=== PATIENT | female | born 1950 | race Caucasian/White ===

== ENCOUNTER 2022-01-04 10:56 | Outpatient (CLI) | payer MEDICARE, OTHER, SELFPAY ==
[2022-01-04 13:13] LABS: Albumin* 4.1 g/dL (3.3-5.0); Chloride* 101 mmol/L (96-114); Sodium* 137 mmol/L (135-149)
[2022-01-04 13:14] LABS: Potassium* 4.2 mmol/L (3.6-5.1)
[2022-01-04 13:15] LABS: Cholesterol* 238 mg/dL (90-199)
[2022-01-04 13:16] LABS: Alanine Aminotransferase* 28 U/L (4-35); Alkaline Phosphatase* 111 U/L (40-150); Aspartate Amino Transferase* 36 U/L (12-35); Bilirubin Total* 0.5 mg/dL (0.1-1.5); Blood Urea Nitrogen* 23 mg/dL (7-30); Carbon Dioxide* 27 mmol/L (20-32); Creatinine* 0.9 mg/dL (0.5-1.5); Estimated Glomerular Filt Rate 68 ml/min; Glucose* 96 mg/dL (60-115); Total Protein* 7.1 g/dL (6.0-8.3); Triglycerides* 151 mg/dL (40-149)
[2022-01-04 13:17] LABS: Calcium* 9.5 mg/dL (8.4-10.6); HDL Cholesterol* 46 mg/dL (>=50); LDL Cholesterol Calculated 162 mg/dL (<100)
== END 2022-01-04 10:57 | disposition home or self-care (01) ==
PROVIDERS: PCP Internal Medicine; Visit Provider Internal Medicine
DX: Z00.00 Encounter for general adult medical examination without abnormal findings (principal); E66.3 Overweight; E03.9 Hypothyroidism, unspecified; E78.5 Hyperlipidemia, unspecified; I10 Essential (primary) hypertension
CPT/HCPCS: 80053; 80061; 84443

== ENCOUNTER 2022-06-22 08:48 | Outpatient (CLI) | payer MEDICARE, OTHER, SELFPAY ==
--- NOTE | 2022-06-22 09:15 | CRLHL7_ITS ---
For Patients: As a result of the 21st Century Cures Act, medical imaging exams and procedure reports are released immediately into your electronic medical record. You may view this report before your referring provider. If you have questions, please contact your health care provider. HISTORY: Hypodense nodules within the liver. COMPARISON: Outside CT of the abdomen and pelvis, 05/19/2022. TECHNIQUE: MRI of the abdomen without and with intravenous gadolinium. Three plane localizer, 3 plane SSFP, axial T1 weighted in and out of phase, axial coronal T2 weighted haste, axial STIR, axial diffusion-weighted imaging and ADC map, and pre and post contrast axial/coronal T1 weighted fat-suppressed VIBE pulse sequences were obtained. 15 cc of IV dotarem. Findings: Review of the outside CT scan demonstrates a low-density, subcentimeter lesion in segment VII of the liver, which measured 6-7 mm. This is seen on series 3, image 20. This lesion demonstrates T2 shine through rather than restricted diffusion on the diffusion-weighted sequence/ADC map. This may be cystic in nature, but is not seen with certainty on T2 weighted imaging. There is a focal T1 hypointense observation on the portal venous phase, right hepatic lobe, series 15, image 31, which could represent a focal dilated intrahepatic biliary radicles. No suspicious liver lesion is identified. The liver morphology is non cirrhotic. There is no perihepatic ascites. No inflammatory changes adjacent to the gallbladder. Spleen size is normal. No adrenal mass. The nephrograms are symmetric. There is no solid renal mass or perinephric fluid collection. There is no pancreatic duct dilation or glandular atrophy. No inflammatory changes adjacent to the gallbladder. Normal caliber common bile duct. No portal vein thrombosis. SMV and splenic vein are patent. Normal marrow signal intensity. Inflammatory changes present in the left lower quadrant abdominal wall, as seen on series 15, image 75 the common bile duct measures 4-5 millimeters in the head of the pancreas. No pancreatic duct dilation. No glandular atrophy. Impression: 1. The subcentimeter, hypodense liver lesion, segment VII of the liver, has nonspecific imaging characteristics. This is of lower suspicion given the presence of T2 shine through rather than restricted diffusion on the ADC map. 2. This is amenable to imaging surveillance. Follow-up MRI in 6 months is suggested to begin documentation of stability. 3. Non cirrhotic liver morphology. 4. No abdominal lymphadenopathy or ascites. 5. Left lower quadrant abdominal wall inflammatory changes, as seen on series 15, image 75. No drainable fluid collection by MRI. Dictated by Doc Guillen MD @ 06/25/2022 3:21:13 PM (Electronically Signed)
== END 2022-06-22 08:49 | disposition home or self-care (01) ==
PROVIDERS: PCP Internal Medicine; Visit Provider Internal Medicine
DX: K76.9 Liver disease, unspecified (principal); R16.0 Hepatomegaly, not elsewhere classified
CPT/HCPCS: 74183; A9575

== ENCOUNTER 2022-12-17 07:24 | Outpatient (CLI) | payer MEDICARE, OTHER, SELFPAY ==
--- NOTE | 2022-12-17 08:15 | CRLHL7_ITS ---
For Patients: As a result of the Cures Act, medical imaging exams and procedure reports are released immediately into your electronic medical record. You may view this report before your referring provider. If you have questions, please contact your health care provider. INDICATION: Low back pain. TECHNIQUE: Sagittal and axial T1, sagittal axial T2 sagittal STIR images are obtained. COMPARISON: Previous lumbar spine MRI dated 04/28/2020. FINDINGS: There is exaggeration of lumbar lordosis. The there is grade 1 anterolisthesis of the L5-S1 level. There is mild degenerative retrolisthesis at L1-2 and T12-L1. At the T11-12 level disc space narrowing and marginal osteophyte formation causes mild thecal sac deformity and contacts but does not compress the distal spinal cord. Neural foramen are adequately patent. T12-L1 degenerative narrowing of the disc space disc desiccation mild annular bulging without stenosis of the spinal canal or neural foramen. At L1-2 level there is degenerative disc desiccation. There is minor annular bulge without stenosis the spinal canal or neural foramen. At L2-3 no disc herniation central or lateral stenosis. At L3-4 no disc herniation central or lateral stenosis. At L4-5 disc desiccation minor annular bulge no stenosis of the spinal canal or neural foramen mild bilateral facet arthropathy. At L5-S1 grade 1 anterolisthesis mild posterior disc bulge and moderate bilateral facet arthropathy. No stenosis of the spinal canal. Mild bilateral neural foraminal narrowing. IMPRESSION: 1. Multilevel spondylosis in the lumbar and lower thoracic spine as described in detail above having progressed slightly since prior 04/28/2020. 2. Exaggerated lumbar lordosis mild degenerative anterolisthesis at L4-5 and retrolisthesis at L1-2 and T12-L1. 3. No high-grade central or lateral stenosis at any lumbar level. No acute compression fractures. Dictated by Agustín Osborne MD @ 12/18/2022 8:32:18 AM (Electronically Signed)
--- NOTE | 2022-12-17 09:00 | CRLHL7_ITS ---
For Patients: As a result of the Century Cures Act, medical imaging exams and procedure reports are released immediately into your electronic medical record. You may view this report before your referring provider. If you have questions, please contact your health care provider. INDICATION: Liver lesion; followup. COMPARISON: MRI of the abdomen June 22, 2022. TECHNIQUE: Precontrast T1 and T2 weighted imaging; T2 haste imaging; diffusion weighted imaging; in and out of phase imaging; postcontrast imaging including subtraction; 15 cc of clariscan contrast was injected. Findings : An 8.4 mm lesion identified in segment 7 of the liver; stable when compared to June 22, 2022. T2 shine through identified on the diffusion-weighted imaging without any obvious restriction of diffusion. Lesion could not be identified on the precontrast imaging. Postcontrast there is a low signal lesion identified in segment 7 of the liver along the course of the branch of the right hepatic vein. No other focal hepatic or splenic pathology. No pancreatic pathology. Gallbladder is unremarkable. No adrenal pathology. Kidneys are unremarkable. No retroperitoneal lymphadenopathy. No evidence of abdominal ascites. IMPRESSION: An 8.4 mm indeterminate lesion identified in segment 7 of the liver ;stable when compared to May 2022; lesion is indeterminate as it was not evident on the precontrast imaging; if the patient has no known history of primary malignancy, suggest obtaining a followup MR in 12 months duration. Dictated by Susanne Guerra MD @ 12/21/2022 4:59:31 AM (Electronically Signed)
== END 2022-12-17 07:25 | disposition home or self-care (01) ==
PROVIDERS: PCP Internal Medicine; Visit Provider Internal Medicine
DX: K76.9 Liver disease, unspecified (principal); M54.50 Low back pain, unspecified; M47.896 Other spondylosis, lumbar region; M51.36 Other intervertebral disc degeneration, lumbar region
CPT/HCPCS: 72148; 74183; A9575

== ENCOUNTER 2022-12-25 13:05 | Outpatient (CLI) | payer MEDICARE, OTHER, SELFPAY | END 2022-12-25 13:06 | disposition home or self-care (01) | PROVIDERS: PCP Internal Medicine; Visit Provider Internal Medicine | DX: E03.9 Hypothyroidism, unspecified (principal); E78.5 Hyperlipidemia, unspecified; I10 Essential (primary) hypertension; E66.3 Overweight | CPT/HCPCS: 80053; 80061; 84443 ==

== ENCOUNTER 2023-01-22 10:10 | Outpatient (CLI) | payer MEDICARE, OTHER, SELFPAY ==
--- OUTSIDE RECORDS SUMMARY | 2023-01-22 10:13 | XMS_ITS | Continuity of Care Document ---
Author Name Unknown Organization [facility] Address [address] [place] [address] Phone Care Team Providers Care Nursing Manager Name Role Phone Leodan Montgomery MD Unavailable Unavailable Procedures Procedure Date No Show Visit Fee Advance Directives Directive Yes / No Effective Date File Name No Information Encounters Encounter Description Practice Location Reason(s) For Visit Diagnoses Date Provider Providers Copied on Encounter [facility], [address], [place], [place], [id number], [place] tel:[phone] [facility] No Information Valentina Alcocer. [address], [place], [id number], [place]. tel:[phone] Referring Provider: REFERRAL NAN LLAMAS. Family History Family Member Type Diagnosis Age At Onset No Information Payers Payer name Insurance type Covered democrat ID Authoriza tion(s) No Information Social History Type Description Quantity Date Captured Comments Sex Female Smoking Status No Information Chief Complaint And Reason For Visit No Information Reason For Referral Reason For Referral No Information History Of Present Illness Encounter Date Complaint History Of Prese nt Illness No Information Functional Status Date Functional Assessmen t No Information Instructions Date Instruction Additional Infor mation No Information Assessments Type Assessment Date No Information Patient Care Teams Name Effective Dates (start - stop) Status Members No Information
== END 2023-01-22 10:11 | disposition home or self-care (01) ==
LOC: INJ CL 10:11
PROVIDERS: PCP Internal Medicine; Visit Provider Family Medicine
DX: M54.16 Radiculopathy, lumbar region (principal); M51.36 Other intervertebral disc degeneration, lumbar region
CPT/HCPCS: 62323; J0702; Q9966

== ENCOUNTER 2023-07-15 10:31 | Outpatient (CLI) | payer MEDICARE, OTHER, SELFPAY ==
--- OUTSIDE RECORDS SUMMARY | 2023-07-15 10:33 | XMS_ITS | Clinical Summary ---
Author Name Unknown Organization [facility] Address [address] [place] [address] Care Team Providers Care Hand Stamper Name Role Phone Maggie Fair MD Primary Care Provider [phone] Source Comments You are receiving this document as you are listed as the primary care provider,follow-up provider, or the patient has been referred to you for consultation.This is in compliance with the Medicare andMedicaid EHR Incentive Program,which states Providers who transition their patient to another setting of careor provider of care or refers their patient to another provider of care shouldprovide summary care record for each transition of care or referral. [facility] Allergies Active Allergy Reactions Criticality Noted Date Comments Sulfa Antibiotics Rash 02/26/2013 Medications Medication Sig Dispensed Refills Start Date End Date Status hydrocortisone (HYDROCORTISONE 25 MG) [address] 1 suppository rectally daily as needed for Hemorrhoids. 12 suppository 3 03/30/2013 Active hydrocortisone (AKA PROCTOSOL-HC) 2.5 % rectal cream Place rectally daily as needed for Hemorrhoids. 30 g 3 03/30/2013 Active cetirizine (AKA ZYRTEC) 10 MG tablet Take 1 tablet by mouth daily (every 24 hours). 30 tablet 11 03/27/2013 Active fluticasone-salm eterol (AKA ADVAIR DISKUS) 250-50 MCG/DOSE diskus inhaler Inhale 1 puff every 12 hours. Rinse mouth/Gargle after use 3 Inhaler 3 08/17/2013 Active atorvastatin (AKA LIPITOR) 80 MG tabletIndication s:Hyperlipidemia (HRC) Take 0.5 tablets by mouth daily (every 24 hours). 45 tablet 3 08/17/2013 Active fluticasone (AKA FLONASE) 50 MCG/ACT nasal solution Place 2 sprays into each nostril daily (every 24 hours). Dose is for each nostril. 16 g 2 08/17/2013 Active triamcinolone acetonide (AKA KENALOG) 0.1 % ointment Apply topically 2 times daily as needed for Itching. 80 g 0 08/17/2013 Active fluocinolone (AKA CAPEX SHAMPOO) 0.01 % shampoo Apply topically 1-2 TIMES DAILY PRN. 120 mL 1 08/17/2013 Active levothyroxine (AKA SYNTHROID) 100 MCG tablet Take 1 tablet by mouth daily (every 24 hours). 90 tablet 3 08/17/2013 Active FLUOCINOLONE ACETONIDE BODY 0.01 % OIL Apply topically nightly. Massage thoroughly into wetted hair/scalp, cover with shower cap, leave on for at least 4 hrs, then wash out 120 mL 3 08/20/2013 Active traZODone (AKA DESYREL) 50 MG tablet Take 1 tablet by mouth nightly. 30 tablet 0 10/02/2013 Active celecoxib (AKA CELEBREX) 200 MG capsule Take 1 capsule by mouth 2 times daily. 180 capsule 0 12/17/2013 Active estradiol (AKA ESTRACE) 0.1 MG/GM vaginal cream Place 1 g vaginally daily (every 24 hours). Insert 1 gm vaginally 1-3 times per week. 42.5 g 11 03/11/2014 Active pantoprazole (AKA PROTONIX) 40 MG tablet Take 1 tablet by mouth daily (every 24 hours). 90 tablet 3 03/11/2014 Active ketoconazole (AKA NIZORAL) 2 % shampoo Take as instructed daily as needed for Irritation. 240 mL 0 03/11/2014 Active pseudoephedrine (AKA SUDAFED) 120 MG 12 hour release tablet Take 1 tablet by mouth daily (every 24 hours). 30 each 2 03/19/2014 Active hydrOXYzine HCl (ATARAX) 25 MG tablet TAKE 1 TO 2 TABLETS BY MOUTH 4 TIMES DAILY NEEDED 10/31/2018 Active fluticasone (AKA FLOVENT HFA) 110 mcg/actuation inhaler Inhale 1 puff 2 times daily. Rinse mouth/Gargle after use 1 Inhaler 6 03/27/2013 4 Discontinu ed(Discont inued by Patient) Active Problems Problem Noted Date Diagnosed Date Obstructive sleep apnea on CPAP 06/29/2019 Overview: Setting: APAP 5-15 Supplied by: [facility] PSG done: 12/30/18 AHI 5 (eds) RDI 6 Lowest O2 Sat: 88% Bernie/Neurock 04/24/19 new Vitamin D deficiency 03/11/2014 Overview: Vitamin D deficiency (ACG) Osteoarthritis 12/21/2013 Overview: celebrex prn Routine health maintenance 08/06/2013 Overview: colonoscopy x2 in past, last 2010 [place] negative, DUE 08/2015 - personal history of benign colon polyps in ~ 2003 Depression, major, recurrent 02/26/2013 Overview: Prozac 40 Insomnia 02/26/2013 Overview: Trazodone 50 prn Hypothyroidism 01/30/2013 Overview: levothyroxine 100 mcg - [facility] TSH 06/2012 0.80 FT4-1.37 Mild persistent asthma 01/30/2013 Overview: Flovent 44, 2 puff BID and albuterol prn Hyperlipidemia 01/30/2013 Overview: LDL as high as 212 in 08/2011 --> 07/07 down to 88 - ? med GERD (gastroesophageal reflux disease) 3 Overview: omeprazole 20 mg BID, had EGD normal in remote past Seborrheic dermatitis 01/30/2013 Overview: Fluocinolone oil, shampoo Menopause 01/30/2013 Overview: Estrogen only - discussed recommendation for discontinuing 02/26/2013 - discussed risks and benefits Allergic rhinitis 01/30/2013 Overview: Flonase Chronic right shoulder pain 01/30/2013 Overview: [facility] MRI 06/2012 showed Full thickness distal supraspinatus tear, 1.3 cm - s/p steroid injection and PT Soft tissue mass 01/30/2013 Overview: Dx 06/2012 - US showed solid 2.8x1.3x3.9 cm, MRI no solid mass (lipoma or fat dist) - Rec F/u MRI if changing Immunizations Name Administration Dates Next Due HepA Adult (19+ yrs) 02/26/1996,07/27/1995 HepB Adult (Engerix-B, 20+ y rs, 3 dose series) 02/26/1996,08/26/1995,07/27/1995 PPSV23 (Pneumovax) 02/26/1996 TDAP (ADACEL) 06/15/2009 Family History Medical History Relation Name Comments Alcohol Abuse Father Cancer, Pancreatic Father Depression Father Alzheimer's Mother Hyperlipidemia Mother Hypertension Mother TIA Mother Hyperlipidemia Daughter Diabetes Maternal Aunt Diabetes Maternal Grandfather Glaucoma Sister Thyroid Disorder Sister Hyperlipidemia Son Amblyopia/Strabismus Negative Family History Blindness Negative Family History Cataract Negative Family History Macular Degeneration Negative Family History Retinal Detachment Negative Family History Relation Name Status Comments Father Mother Daughter Maternal Aunt Maternal Grandfather Sister Son Social History Tobacco Use Types Packs/Day Years Used Date Smoking Tobacco: Former Cigarettes Q uit: 02/26/1983 Smokeless Tobacco: Never Comments:Quit 1983 Alcohol Use Standard Drinks/Week Comments No 0 (1 standard drink = 0.6 oz pur e alcohol) Sex and Gender Information Value Date Recorded Sex Assigned at Not on file Gender Identity Not on file Sexual Orientation Not on file Last Filed Vital Signs Vital Sign Reading Time Taken Comments Blood Pressure 143/88 04/24/2019 11:00 AM WAREHOUSE HELPER Pulse 88 04/24/2019 11:00 AM WAREHOUSE HELPER Temperature 36.7 ??C (98.1 ??F) 08/12/2016 5:05 PM CD T Respiratory Rate 16 08/12/2016 5:05 PM CDT Oxygen Saturation 97% 04/24/2019 11:00 AM WAREHOUSE HELPER Inhaled Oxygen Concentration - - Weight 88.5 kg (195 lb 1.6 oz) 04/24/2019 11:00 AM WAREHOUSE HELPER Height 160 cm (5' 3) 04/24/2019 11:00 AM WAREHOUSE HELPER Body Mass Index 34.56 04/24/2019 11:00 AM WAREHOUSE HELPER Plan of Treatment Health Maintenance Due Date Last Done Comments Hep C Screening (Preventive Services) 1950 Medicare Annual Wellness Visit 1950 Mammogram 1950 Dexa 2013 Colonoscopy 09/09/2015 09/08/2010 (Completed) Zoster/Shingles (2 of 3) 09/26/2015 08/01/2015, 06/26 COVID-19 Vaccine ( season) 2022 06/28/2020, 06/07/2020 Influenza (Season Ended) 2023 020, 11/05/2019, 12/03/2018, Additional history exists DTaP/Tdap/Td (4 - Tdap) 12/03/2028 12/04/19 19, 07/14/2010, 06/15/2009 HepA Aged Out 02/26/1996, 07/27/1995 No lo nger eligible based on patient's age to complete this topic HepB Completed 02/26/1996, 02/1995, 07/27/1995 Cholesterol Discontinued 03/11/2014, 07/27, 02/26/2013 Pneumococcal 65+ Yrs Completed 10/19/2014, 04/13/2014, 07/14/2010, Additional history exists Hib Aged Out No longer eligi ble based on patient's age to complete this topic IPV (Polio) Aged Out No longer eligi ble based on patient's age to complete this topic MCV4 Aged Out No longer eligi ble based on patient's age to complete this topic Procedures Procedure Name Priority Date/Time Associated Diagnosis Comments LIPID PANEL & DIRECT LDL (IF NEEDED) Routine 03/11/2014 10:35 AM WAREHOUSE HELPER Hyperlipidemia from Last 3 Months or Most Recently Relevant to Health Maintenance Results * Lipid Panel and Direct LDL(If Needed) (03/11/2014 10:35 AM WAREHOUSE HELPER) Cholesterol 196 0 - 200 mg/dL HP CONVERSION Triglycerides 66 0 - 149 mg/dL HP CONVERSION HDL Cholesterol 55 >39 mg/dL HP CONVERSION Cholesterol/HDL Ratio Screen 3.6 HP CONVERSION LDL Calculated 128 19 - 130 mg/dL HP CONVERSION Hours Fasting 12.0 HP CONVERSION 03/11/2014 10:3 5 AM WAREHOUSE HELPER 03/11/2014 10:35 AM WAREHOUSE HELPER Narrative HP CONVERSION - 03/11/2014 11:11 AM WAREHOUSE HELPER Performed at [facility], [address] [place] [address] Maggie Fair MD LAB_1 HP CONVERSION from Last 3 Months or Most Recently Relevant to Health Maintenance Care Teams Hand Stamper Relationship Specialty [place] [id number] [address] [id number] PCP - General 01/27/13
--- OUTSIDE RECORDS SUMMARY | 2023-07-15 10:34 | XMS_ITS | Encounter Summary ---
Author Name Unknown Organization [facility] Address [address] [place] [address]. [place] [address] Care Team Providers Care Fast Food Assistant Restaurant Manager Name Role Phone Clinic, [facility] Primary Care Provider Reason for Visit * Rehab Therapy Physical Therapy (Routine) - Pending Review Specialty Diagnoses / Procedures Referred By Aaron t Referred To Contact Diagnoses Left hip pain Right hip pain Trochanteric bursitis Erick Gregory PA-C [facility] [address] [place] [address] [place] [address] Referral ID Status Reason Start Date Expiration Date V isits Requested Visits Authorized [id number] Pending Review 05/03/2023 05/02/2024 1 1 Encounter Details Date Type Department Care Team (Latest Contact Info) Description 05/22/2023 1:00 PM CDT Therapy Visit [facility] [id number] [place] [phone] Charlie Rincon, PT [facility] [id number] [place] [id number] Trochanteric bursitis of both hips (Primary Dx) Social History Tobacco Use Types Packs/Day Years Used Date Smoking Tobacco: Former Cigarettes 1 20 Smokeless Tobacco: Never Comments:Quit 1983 Alcohol Use Standard Drinks/Week Comments No 0 (1 standard drink = 0.6 oz pur e alcohol) nothing since 1976 Adolescent Education Answer Date Record ed Getting School Help Needed Not on file 12/09 Sex and Gender Information Value Date Recorded Sex Assigned at Female 12/04/2021 9:56 AM CDT Gender Identity Female 10/09/2021 11:55 AM CDT Sexual Orientation Straight 10/09/2021 11 :55 AM CDT documented as of this encounter Progress Notes * Charlie Rincon, PT - 05/22/2023 1:00 PM CDT PHYSICAL THERAPY EVALUATION Type of Visit: Evaluation See electronic medical record for Abuse and Falls Screening details. Subjective Pt describes right > left lateral hip pain. Has been an ongoing problem since 2020. Worse again recently for unknown reasons. Pain is worse with pressure at the lateral hip, lying on her right side. Received a cortizone injectoin in the right hip on 05/13/23 and the hip pain has been much better.Referred to PT on 05/03/23. Presenting condition or subjective complaint: Right hip pain- just got cortizone injection 05/13/23 Date of onset: 05/03/23 (MD orders) Relevant medical history: Arthritis; Asthma; Depression; High blood pressure; Overweight; Thyroid problems Dates & types of surgery: Hysterectomy 20 years ago; Right knee replacement 5 years ago; Rotator cuff 4 years ago. Prior diagnostic imaging/testing results: X-ray Prior therapy history for the same diagnosis, illness or injury: No Prior Level of Function Transfers: Independent Ambulation: Independent ADL: Independent IADL: Living Environment Social support: With a significant other or spouse Type of home: 2-story; House Stairs to enter the home: Yes Ramp: No Stairs inside the home: Yes Help at home: Equipment owned: Employment: No Hobbies/Interests: Reading and writing, pets Patient goals for therapy: Move without any discomfort and lie on right side without discomfort Pain assessment: See objective evaluation for additional pain details Objective HIP EVALUATION PAIN: Pain Level at Rest: 0/10 Pain Level with Use: 5/10 Pain Location: lateral hip Pain is Exacerbated By: lying on the hip; pressure to the lateral hip INTEGUMENTARY (edema, incisions): WNL POSTURE: WNL GAIT: Weightbearing Status: WBAT Assistive Device(s): None Gait Deviations: WFL BALANCE/PROPRIOCEPTION: Single Leg Stance Eyes Open (seconds): < 5 seconds bilateral WEIGHTBEARING ALIGNMENT: Knee WB Alignment:Genu valgus L, Genu valgus R NON-WEIGHTBEARING ALIGNMENT: ROM: (Degrees) Left AROM Left PROM Right AROM Right PROM Hip Flexion 100 100 Hip Extension Hip Abduction 45 45 Hip Adduction Hip Internal Rotation Hip External Rotation 70 70 Knee Flexion Knee Extension Lumbar Side glide Lumbar Flexion Lumbar Extension Pain: End feel: PELVIC/SI SCREEN: STRENGTH: Pain: - none + mild ++ moderate +++ severe Strength Scale: 0-5/5 Left Right Hip Flexion 5- 5- Hip Extension 4 4 Hip Abduction 5- 4+ Hip Adduction Hip Internal Rotation Hip External Rotation 5- 4+ Knee Flexion Knee Extension LE FLEXIBILITY: tight hip flexors SPECIAL TESTS: WNL FUNCTIONAL TESTS: PALPATION: right greater troch very tender. Left minimal tenderness. JOINT MOBILITY: n/a Assessment & Plan CLINICAL IMPRESSIONS Medical Diagnosis: Bilat hip pain, greater trochanteric bursitis Treatment Diagnosis: Bilat gr troch bursitis Impression/Assessment: Patient is a 73 year old female with right > left hip complaints. The following significant findings have been identified: Pain, Decreased ROM/flexibility, and Decreased strength. 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 Clinical Decision Making (Complexity): Clinical Presentation: Stable/Uncomplicated Clinical Presentation Rationale: based on medical and personal factors listed in PT evaluation Clinical Decision Making (Complexity): Low complexity PLAN OF CARE Treatment Interventions: Modalities: Cryotherapy, Ultrasound Interventions: Therapeutic Exercise Structures Engineer Goals PT Goal 1 Goal Identifier: Lying on her side Goal Description: Ability to lie on her right side with PL of 2/10 or less Rationale: to maximize safety and independence with performance of ADLs and functional tasks (for sleeping) Target Date: 07/18/23 Frequency of Treatment: 1x/week Duration of Treatment: 8 weeks Recommended Referrals to Other Professionals: Education Assessment: Risks and benefits of evaluation/treatment have been explained. Patient/Family/caregiver agrees with Plan of Care. Evaluation Time: Jhonny Montoya Minutes (54123): 15 Signing Clinician: ELYSIA Gomez [facility] OUTPATIENT PHYSICAL THERAPY PLAN OF TREATMENT FOR OUTPATIENT REHABILITATION Patient's Last Name, First Name, MSherif Tai Date of : 1950 Provider's Name [facility] Onset Date: 05/03/23 (MD orders) Start of Care Date: 05/22/23 Medical Diagnosis: Bilat hip pain, greater trochanteric bursitis PT Treatment Diagnosis: Bilat gr troch bursitis Plan of Treatment Frequency/Duration: 1x/week/ 8 weeks Certification date from 05/22/23 to 07/16/23 See note for plan of treatment details and functional goals Charlie Rincon, PT I CERTIFY THE NEED FOR THESE SERVICES FURNISHED UNDER THIS PLAN OF TREATMENT AND WHILE UNDER MY CARE . Physician Signature Date X Referring Provider: Erick Gregory Initial Assessment See Epic Evaluation- Start of Care Date: 05/22/23 documented in this encounter Plan of Treatment Upcoming Encounters Date Type Department Care Team (Late st Contact Info) Description 08/05/2023 10:30 AM CDT Therapy Visit [address] [phone] Charlie Rincon, PT [facility] [id number] [place] [phone] 08/08/2023 10:40 AM CDT Therapy Visit [address] [phone] Charlie Rincon, PT [facility] [id number] [place] [phone] 08/12/2023 10:30 AM CDT Therapy Visit [address] [phone] Charlie Rincon, PT [facility] [id number] [place] [address] 08/15/2023 10:40 AM CDT Therapy Visit [facility] [id number] [place] [phone] [place] [address] [place] [address] 08/19/2023 10:30 AM CDT Therapy Visit [facility] [address] [place] [phone] Charlie Rincon, PT [facility] [phone] [place] [phone] 08/22/2023 10:40 AM CDT Therapy Visit [address] [phone] Charlie Rincon, PT [facility] [phone] [place] [address] 08/26/2023 10:30 AM CDT Therapy Visit [facility] [address] [place] [phone] Charlie Rincon, PT [facility] [phone] [place] [address] 08/28/2023 10:50 AM CDT Therapy Visit [facility] [id number] [place] [phone] Charlie Rincon, PT [facility] [phone] [place] [address] 09/02/2023 10:50 AM CDT Therapy Visit [facility] [address] [place] [phone] [place] [id number] [place] [address] 09/05/2023 10:40 AM CDT Therapy Visit [facility] [address] [place] [phone] [place] [address] [place] [address] 09/09/2023 10:10 AM CDT Therapy Visit [facility] [address] [place] [phone] [place] [address] [place] [address] 09/12/2023 10:40 AM CDT Therapy Visit [facility] [address] [place] [phone] Charlie Rincon, PT [facility] [id number] [place] [address] 09/16/2023 10:30 AM CDT Therapy Visit [facility] [id number] [place] [phone] Charlie Rincon, PT [facility] [id number] [place] [address] 09/19/2023 10:40 AM CDT Therapy Visit [facility] [address] [place] [phone] Charlie Rincon, PT [facility] [phone] [place] [address] 09/23/2023 10:30 AM CDT Therapy Visit [facility] [address] [place] [phone] Charlie Rincon, PT [facility] [id number] [place] [address] 09/26/2023 10:40 AM CDT Therapy Visit [facility] [place] [address] [place] [phone] Charlie Rincon, PT [facility] [address] [place] [address] 10/16/2023 9:15 AM CDT Virtual Visit [facility] [address] [place] [address] Corinne Moreno MD [address] [place] [address] [address] [place], [place] [phone] Scheduled Referrals Name Type Priority Associated Diagnoses Orde r Schedule Physical Therapy Copy Reader Referral Referral Routine Left hip pain Right hip pain Trochanteric bursitis Ordered: 05/03/2023 documented as of this encounter Visit Diagnoses Diagnosis Trochanteric bursitis of both hips- Primary Enthesopathy of hip region documented in this encounter Care Teams Fast Food Assistant Restaurant Manager Relationship Specialty Start Date End Date Clinic, [facility] [address] [place] [address] PCP - General 03/28/15 documented as of this encounter
--- OUTSIDE RECORDS SUMMARY | 2023-07-15 10:34 | XMS_ITS | Encounter Summary ---
Author Name Unknown Organization [facility] Address [address] [place] [address]. [place] [address] Care Team Providers Care Fruit Pitter Name Role Phone Clinic, [facility] Primary Care Provider Reason for Visit * Reason Comments RECHECK Encounter Details Date Type Department Care Team (Late st Contact Info) Description 06/24/2023 9:45 AM CDT Virtual Visit [facility] [place] [address] [facility] [address] [place] [phone] [place] [address] [place] [address] [address] [place], [place] [id number] Class 1 obesity due to excess calories with serious comorbidity and body mass index (BMI) of 30.0 to 30.9 in adult (Primary Dx); Hyperlipidemia LDL goal <160; Benign essential hypertension; History of migraine headaches; Elevated glucose Social History Tobacco Use Types Packs/Day Years Used Date Smoking Tobacco: Former Cigarettes 1 20 Smokeless Tobacco: Never Comments:Quit 1983 Alcohol Use Standard Drinks/Week Comments No 0 (1 standard drink = 0.6 oz pur e alcohol) nothing since 1976 PHQ-2 Answer Date Recorded PHQ-2 Score 0 06/24/2023 Adolescent Education Answer Date Record ed Getting School Help Needed Not on file 12/09 Sex and Gender Information Value Date Recorded Sex Assigned at Female 12/04/2021 9:56 AM CDT Gender Identity Female 10/09/2021 11:55 AM CDT Sexual Orientation Straight 10/09/2021 11 :55 AM CDT documented as of this encounter Last Filed Vital Signs Vital Sign Reading Time Taken Comments Blood Pressure - - Pulse - - Temperature - - Respiratory Rate - - Oxygen Saturation - - Inhaled Oxygen Concentration - - Weight 78 kg (172 lb) 06/24/2023 9:30 AM CDT Height 160 cm (5' 3) 06/24/2023 9:30 AM CDT Body Mass Index 30.47 06/24/2023 9:30 AM CDT documented in this encounter Patient Instructions * Patient Instructions* Corinne Moreno MD - 06/24/2023 9:45 AM CDT LEAN PROTEIN SOURCES Protein Source Portion Calories Grams of Protein Nonfat, plain Kinyarwanda yogurt (10 grams sugar or less) 3/4 cup (6 oz) 80-100 12-17 Light Yogurt (10 grams sugar or less) 3/4 cup (6 oz) 80-100 6-8 Protein Shake 1 shake 110-180 15-30 Skim/1% Milk or lactose-free milk 1 cup ( 8 oz) 90-100 8 Plain or light, flavored soymilk 1 cup 90-100 7-8 Plain or light, hemp milk 1 cup 110 6 Fat Free or 1% Cottage Cheese 1/2 cup 90 15 Part skim ricotta cheese 1/2 cup 100 14 Part skim or reduced fat cheese slices 1 ounce 65-80 8 Mozzarella String Cheese 1 80 8 Canned tuna, chicken, crab or salmon (canned in water) 1/2 cup 100 15-20 White fish (broiled, grilled, baked) 3 ounces 100 21 [place]/Tuna (broiled, grilled, baked) 3 ounces 150-180 21 Shrimp, Scallops, Lobster, Crab 3 ounces 100 21 Pork loin, Pork Tenderloin 3 ounces 150 21 Boneless, skinless chicken /turkey breast (broiled, grilled, baked) 3 ounces 120 21 [place], [place], [place], and Venison 3 ounces 120 21 Lean cuts of red meat and pork (sirloin, round, tenderloin, flank, ground 93%-96%) 3 ounces 170 21 Lean or Extra Lean Ground [place] 1/2 cup 150 20 90-95% Lean [place] Burger 1 breonna 140-180 21 Low-fat casserole with lean meat 3/4 cup 200 17 Luncheon Meats (turkey, lean ham, roast beef, chicken) 3 ounces 100 21 Egg (boiled, poached, scrambled) 1 Egg 60 7 Egg Substitute 1/2 cup 70 10 Nuts (limit to 1 serving per day) 3 Tbsp. 150 7 Nut [place] (peanut, almond) Limit to 1 serving or less daily 1 Tbsp. 90 4 Soy Burger (varies) 1 90-130 15 Garbanzo, Black, Madrigal Beans 1/2 cup 110 7 Refried Beans 1/2 cup 100 7 Kidney and Aldridge beans 1/2 cup 110 7 Tempeh 3 oz 175 18 Vegan crumbles 1/2 cup 100 14 Tofu 1/2 cup 110 14 [place] (beans and extra lean beef or turkey) 1 cup 200 23 Lentil Stew/Soup 1 cup 150 12 Black [place] Soup 1 cup 175 12 Here are the Wildfire exercise sites: Yoga-https://www.Wildfire.com/user/yogawithadriene Body strength activities, dance, high intensity interval training- https://www.Wildfire.Polleverywhere/user/popsugartvfit Strength training- https://www.Wildfire.Polleverywhere/user/KozakSportsPerform Walking- https://www.Wildfire.Polleverywhere/user/walkathomemedia Sit and Be Fit- https://www.Wildfire.Polleverywhere/channel/UCLgvL3aGzMByecNYtMcyK_g Low impact cardio- Ashley Conrad- https://www.Yeelionube.com/channel/TQlcOEoIvloXedlX0xxayuxJ Cardio Karen Johansen- https://www.Wildfire.com/channel/YHNnXucu5JMvJZIUJ8dCfKQr 30 Min low impact cardio- https://www.Yeelionube.com/watch?v=gC_L9qAHVJ8 Body Project- https://www.Wildfire.com/channel/SWQpr5P42-GrAxXExKthD3IC documented in this encounter Progress Notes * Corinne Moreno MD - 06/24/2023 9:45 AM CDT Virtual Visit Details Type of service: Video Visit Video Start Time: 9:42 am Video End Time:10:05 AM Originating Location (pt. Location): Home Distant Location (provider location): Off-site Platform used for Video Visit: [facility] Non Surgical Follow up Visit Date of visit: 06/24/2023 Physician: Sharla Moreno MD, MD Primary Care is Clinic, [facility]. Sherif Osorio 73 year old female Initial Weight: 188# Today's Weight: Wt Readings from Last 1 Encounters: 06/24/23 78 kg (172 lb) Body mass index is 30.47 kg/m??. Assessment and Plan Assessment: Sherif is a 73 year old year old female who presents for medical weight management. Plan: 1. Class 1 obesity due to excess calories with serious comorbidity and body mass index (BMI) of 30.0 to 30.9 in adult Patient was congratulated on her success thus far. Healthy habits to assist with further weight loss were discussed. She will work on getting 20 gms of protein at breakfast and lunch. She will exercise as tolerated and check out the Sit and Be fit youtube video. She will continue the topamax and wewill try adding metformin. I ordered an A1C as her blood sugars have been elevated in the past. We discussed the patient's co-morbid conditions including hyperlipidemia and hypertension. These likelywill improve with healthy habits and weight loss. 2. Hyperlipidemia LDL goal <160 This may improve with healthy habits and weight loss. 3. Benign essential hypertension This may improve with healthy habits and weight loss. 4. Elevated blood sugars We will check an A1c. We discussed insulin resistance and how it can interfere with weight loss efforts. We discussed dietary changes and exercise to reduce insulin resistance. We discussed the use of metformin. Patient had her questions answered. If she is diabetic we may be able to get her a [id number] Follow up in 3-4 months with myself INTERIM HISTORY Patient has been taking topamax for appetite and craving control and she thinks it is helping with appetite and not cravings. She is interested in trying a GLP 1 agonist. She doesn't start feeling hungry until late afternoon DIETARY HISTORY Meals Per Day: 3 Eating Protein First?: not typically Food Diary: B:yogurt with a vegetable powder and collagen powder L:bowl of cereal or ham and cheeseexeter D:protein and vegetable and starch Snacks Per Day: mid afternoon Typical Snack: chocolate, candy, chips Fluid Intake: ice watered down 50%, 60 oz Portion Control: yes Calorie Containing Beverages: coffee with coffeemate Choosing Whole Grains: sometimes Meals at Restaurant per week:0-1 Positive Changes Since Last Visit:was walking until she hurt her knee May 26 Struggling With: hunger and craving sweets mid to late day, not getting adequate exercise Knowledgeable in Reading Food Labels: not sure she is doing it Getting Adequate Protein: no PHYSICAL ACTIVITY PATTERNS: Some walking, plays in the yard with her dogs (Knee pain) REVIEW OF SYSTEMS GENERAL/CONSTITUTIONAL: Fatigue: sometimes HEENT: glaucoma: no CARDIOVASCULAR: History of heart disease: no GI: Pancreatitis: no NEUROLOGIC: Paresthesias: no History of migraine headaches: no PSYCHIATRIC: Moods: stable MUSCULOSKELETAL/RHEUMATOLOGIC Arthralgias: knee pain Myalgias: sometimes ENDOCRINE: Monitoring Blood Sugars: no Sugars Well Controlled: na No personal or family history of medullary thyroid cancer no : control: menopause History of kidney stones: no Patient Profile Social History Social History Narrative Not on file Past Medical History Past Medical History: Diagnosis Date Allergic rhinitis, cause unspecified Allergic rhinitis Asthma Depressive disorder, not elsewhere classified with panic disorder Esophageal reflux History of colonic polyps 09/07/2010 History of smoking Mild persistent asthma 07/14/2010 Nocturia Pure hypercholesterolemia Sleep apnea Unspecified hypothyroidism 1983 Patient Active Problem List Diagnosis Mild persistent asthma Hypothyroidism GERD (gastroesophageal reflux disease) Mild major depression (H) Seborrheic dermatitis Insomnia Hyperlipidemia LDL goal <160 Allergic state Internal hemorrhoids Obesity Advanced directives, counseling/discussion History of colonic polyps Asthma Sleep apnea Total knee replacement status Status post total right knee replacement on 04/05/15 by Bernie Fox MD Anemia due to blood loss, acute Primary osteoarthritis of right knee Gastroenteritis Acute post-operative pain Liver nodule Diarrhea, unspecified type Acute appendicitis with localized peritonitis, without perforation, abscess, or gangrene Alcohol abuse Allergic rhinitis Chronic right shoulder pain Menopause present Mild recurrent major depression (H24) Vitamin D deficiency Lumbar pain Trochanteric bursitis of both hips Past Surgical History She has a past surgical history that includes VAGINAL HYSTERECTOMY (1991); REMOVAL OF TONSILS,12+ Y/O; BIOPSY BREAST, PERC NEEDLE CORE, NO IMAGING (1974); orthopedic surgery; Arthroplasty knee (Right, 04/05/2015); and Laparoscopic appendectomy (N/A, 05/19/2022). Examination Ht 1.6 m (5' 3) Wt 78 kg (172 lb) BMI 30.47 kg/m?? Wt Readings from Last 4 Encounters: 06/24/23 78 kg (172 lb) 11/01/22 76.2 kg (168 lb) 08/01/22 77.1 kg (170 lb) 05/19/22 83 kg (183 lb) BP Readings from Last 3 Encounters: 05/20/22 105/64 04/20/18 169/87 04/21/15 121/64 GENERAL: alert and no distress EYES: Eyes grossly normal to inspection. No discharge or erythema, or obvious scleral/conjunctival abnormalities. RESP: No audible wheeze, cough, or visible cyanosis. SKIN: Visible skin clear. No significant rash, abnormal pigmentation or lesions. NEURO: Cranial nerves grossly intact. Mentation and speech appropriate for age. PSYCH: Appropriate affect, tone, and pace of words Counseling: We reviewed the important post op bariatric recommendations: -eating 3 meals daily -eating protein first, getting >60gm protein daily -eating slowly, chewing food well -avoiding/limiting calorie containing beverages -limiting starchy vegetables and carbohydrates, choosing wheat, not white with breads, crackers, pastas, suma, bagels, tortillas, rice -limiting restaurant or cafeteria eating to twice a week or less We discussed the importance of restorative sleep and stress management in maintaining a healthy weight. We discussed the National Weight Control Registry healthy weight maintenance strategies and ways tooptimize metabolism. We discussed the importance of physical activity including cardiovascular and strength training in maintaining a healthier weight. Total time spent on the date of this encounter doing: chart review, review of test results, patientvisit, physical exam, education, counseling, developing plan of care and documenting = 41 documented in this encounter Nursing Notes * Mary Kirkpatrick - 06/24/2023 9:45 AM CDT Is the patient currently in the state of [place]? YES Visit mode:VIDEO If the visit is dropped, the patient can be reconnected by: VIDEO VISIT: Send to e-mail at: [email or web address] Will anyone else be joining the visit? NO (If patient encounters technical issues they should call [phone] How would you like to obtain your AVS? MyChart Are changes needed to the allergy or medication list? No Are refills needed on medications prescribed by this physician? YES Reason for visit: RECHECK Mary Kaya VVF documented in this encounter Plan of Treatment Upcoming Encounters Date Type Department Care Team (Late st Contact Info) Description 08/05/2023 10:30 AM CDT Therapy Visit [address] [phone] Charlie Rincon, PT [facility] [address] [place] [address] 08/08/2023 10:40 AM CDT Therapy Visit [facility] [address] [place] [phone] Charlie Rincon, PT [facility] [address] [place] [address] 08/12/2023 10:30 AM CDT Therapy Visit [facility] [address] [place] [phone] Charlie Rincon, PT [facility] [address] [place] [address] 08/15/2023 10:40 AM CDT Therapy Visit [facility] [address] [place] [phone] [place] [address] [place] [address] 08/19/2023 10:30 AM CDT Therapy Visit [facility] [address] [place] [phone] Charlie Rincon, PT [facility] [id number] [place] [address] 08/22/2023 10:40 AM CDT Therapy Visit [address] [phone] Charlie Rincon, PT [facility] [id number] [place] [address] 08/26/2023 10:30 AM CDT Therapy Visit [address] [phone] Charlie Rincon, PT [facility] [id number] [place] [address] 08/28/2023 10:50 AM CDT Therapy Visit [address] [phone] Charlie Rincon, PT [facility] [id number] [place] [address] 09/02/2023 10:50 AM CDT Therapy Visit [facility] [address] [place] [phone] [place] [address] [place] [address] 09/05/2023 10:40 AM CDT Therapy Visit [facility] [address] [place] [phone] [place] [address] [place] [address] 09/09/2023 10:10 AM CDT Therapy Visit [facility] [address] [place] [phone] [place] [address] [place], [place] [address] 09/12/2023 10:40 AM CDT Therapy Visit [facility] [address] [place] [phone] Charlie Rincon, PT [facility] [id number] [place] [address] 09/16/2023 10:30 AM CDT Therapy Visit [facility] [address] [place] [phone] Charlie Rincon, PT [facility] [id number] [place] [address] 09/19/2023 10:40 AM CDT Therapy Visit [facility] [address] [place] [phone] Charlie Rincon, PT [facility] [address] [place] [address] 09/23/2023 10:30 AM CDT Therapy Visit [address] [phone] Charlie Rincon, PT [facility] [id number] [place] [address] 09/26/2023 10:40 AM CDT Therapy Visit [facility] [address] [place] [phone] Charlie Rincon, PT [facility] [address] [place] [address] 10/16/2023 9:15 AM CDT Virtual Visit [facility] [place] [address] [facility] [address] [place] [phone] Corinne Moreno MD [address] [facility] [address] [place] [address] documented as of this encounter Results * (ABNORMAL) Hemoglobin A1c (07/05/2023 10:51 AM CDT) Hemoglobin A1C 5.8(H) <5.7 % 07/05/2023 11:15 AM CDT LABORATORY Comment: Normal <5.7% Prediabetes 5.7-6.4% ?? Diabetes 6.5% or higher Note: Adopted from ADA consensus guidelines. Blood BLOOD SPECIMEN / Unknown Venipuncture / Unknown 07/05/2023 10:51 AM CDT 07/05/2023 10:51 AM CDT P Yajaira Moreno MD LAB - BLOOD ORDERABL ES LABORATORY [facility] Acute Care Lab [address] [facility] (1st floor, no room number) [place] [address], [facility] documented in this encounter Visit Diagnoses Diagnosis Class 1 obesity due to excess calories with serious comorbidity and body mass index (BMI) of 30.0 to 30.9 in adult- Primary Hyperlipidemia LDL goal <160 Other and unspecified hyperlipidemia Benign essential hypertension Essential hypertension, benign History of migraine headaches Personal history of other disorders of nervous system and sense organs Elevated glucose Other abnormal glucose documented in this encounter Care Teams Fruit Pitter Relationship Specialty Start Date End Date Clinic, [address] [place] [address] PCP - General 03/28/15 documented as of this encounter
--- OUTSIDE RECORDS SUMMARY | 2023-07-15 10:34 | XMS_ITS | Encounter Summary ---
Author Name Unknown Organization [facility] Address [address] [place] [address]. [place] [address] Care Team Providers Care Parachutist/Combatant Diver Qualified Name Role Phone Clinic, [facility] Primary Care Provider Encounter Details Date Type Department Care Team (Late st Contact Info) Description 07/05/2023 10:45 AM CDT Lab [facility] [address] [place] [address] Elevated glucose Social History Tobacco Use Types [...] AM CDT documented as of this encounter Plan of Treatment Upcoming Encounters Date Type Department Care Team (Late st Contact Info) Description 08/05/2023 10:30 AM CDT Therapy Visit [facility] [place] [id number] [place] [phone] Charlie Rincon, PT [facility] [address] [place] [address] 08/08/2023 10:40 AM CDT Therapy Visit [facility] [address] [place] [phone] Cahrlie Rincon, PT [facility] [id number] [place] [address] 08/12/2023 10:30 AM CDT Therapy Visit [facility] [address] [place] [phone] Charlie Rincon, PT [facility] [address] [place] [address] 08/15/2023 10:40 AM CDT Therapy Visit [facility] [address] [place] [phone] [place] [address] [place] [address] 08/19/2023 10:30 AM CDT Therapy Visit [facility] [address] [place] [phone] Charlie Rincon, PT [facility] [id number] [place] [address] 08/22/2023 10:40 AM CDT Therapy Visit [facility] [address] [place] [phone] Charlie Rincon, PT [facility] [id number] [place] [address] 08/26/2023 10:30 AM CDT Therapy Visit [facility] [address] [place] [phone] Charlie Rincon, PT [facility] [id number] [place] [address] 08/28/2023 10:50 AM CDT Therapy Visit [facility] [address] [place] [phone] Charlie Rincon, PT [facility] [id number] [place] [address] 09/02/2023 10:50 AM CDT Therapy Visit [address] [phone] [place] [address] [place] [address] 09/05/2023 10:40 AM CDT Therapy Visit [facility] [address] [place] [phone] [place] [address] [place] [address] 09/09/2023 10:10 AM CDT Therapy Visit [address] [phone] [place] [address] [place] [address] 09/12/2023 10:40 AM CDT Therapy Visit [address] [phone] Charlie Rincon, PT [facility] [id number] [place] [address] 09/16/2023 10:30 AM CDT Therapy Visit [address] [phone] Charlie Rincon, PT [facility] [address] [place] [address] 09/19/2023 10:40 AM CDT Therapy Visit [facility] [address] [place] [phone] Charlie Rincon, PT [facility] [id number] [place] [address] 09/23/2023 10:30 AM CDT Therapy Visit [address] [phone] Charlie Rincon, PT [facility] [address] [place] [address] 09/26/2023 10:40 AM CDT Therapy Visit [address] [phone] Charlie Rincon, PT [facility] [id number] [place] [address] 10/16/2023 9:15 AM CDT Virtual Visit [facility] [address] [phone] Corinne Moreno MD [address] [place] [phone] documented as of this encounter Procedures Procedure Name Priority Date/Time Associated Diagnosis Comments HEMOGLOBIN A1C Routine 07/05/2023 10:51 AM CDT Elevated glucose documented in this encounter Results * (ABNORMAL) Hemoglobin A1c (07/05/2023 10:51 AM CDT) Hemoglobin A1C 5.8(H) <5.7 % 07/05/2023 11:15 AM CDT [facility] LAB[facility]ATORY Comment: Normal <5.7% Prediabetes 5.7-6.4% ?? Diabetes 6.5% or higher Note: Adopted from ADA consensus guidelines. Blood BLOOD SPECIMEN / Unknown Venipuncture / Unknown 07/05/2023 10:51 AM CDT 07/05/2023 10:51 AM CDT P Yajaira Moreno MD LAB - BLOOD ORDERABL ES [facility] Acute Care Lab [address] [facility] (1st floor, no room number) [place] [address], [facility] documented in this encounter Visit Diagnoses Diagnosis Elevated glucose Other abnormal glucose documented in this encounter Care Teams Parachutist/Combatant Diver Qualified Relationship Specialty Start Date End Date Clinic, [facility] [address] [place] [address] PCP - General 03/28/15 documented as of this encounter
--- OUTSIDE RECORDS SUMMARY | 2023-07-15 10:34 | XMS_ITS | Encounter Summary ---
Author Name Unknown Organization [place] Address [address] [place] [address]. [place] [address] Care Team Providers Care Child And Family Therapist Name Role Phone Clinic, [facility] Primary Care Provider Encounter Details Date Type Department Care Team (Late st Contact Info) Description 06/24/2023 MyC Medical Advice [facility] [address] [place] [phone] [facility] Social History Tobacco Use Types Packs/Day Years [...] Description 08/05/2023 10:30 AM CDT Therapy Visit [facility] [place] [id number] [place] [address] Charlie Rincon, PT [facility] [address] [place] [address] 08/08/2023 10:40 AM CDT Therapy Visit [facility] [address] [place] [phone] Charlie Rincon, PT [facility] [address] [place] [address] 08/12/2023 10:30 AM CDT Therapy Visit [address] [address] Charlie Rincon, PT [facility] [address] [place] [address] 08/15/2023 10:40 AM CDT Therapy Visit [address] [address] [place] [address] [address] 08/19/2023 10:30 AM CDT Therapy Visit [address] [address] Charlie Rincon, PT [facility] [address] [place] [address] 1989[address] 08/22/2023 10:40 AM CDT Therapy Visit [address] [address] Charlie Rincon, PT [facility] [address] [place] [address] 08/26/2023 10:30 AM CDT Therapy Visit [address] [phone] Charlie Rincon, PT [facility] [address] [place] [address] 08/28/2023 10:50 AM CDT Therapy Visit [facility] [address] [place] [phone] Charlie Rincon, PT [facility] [address] [place] [address] 09/02/2023 10:50 AM CDT Therapy Visit [address] [address] [place] [address] [place] [address] 09/05/2023 10:40 AM CDT Therapy Visit [facility] [address] [place] [address] [place] [address] [place] [address] 09/09/2023 10:10 AM CDT Therapy Visit [address] [address] [place] [address] [place] [address] 09/12/2023 10:40 AM CDT Therapy Visit [address] [address] Charlie Rincon, PT [facility] [address] [place] [address] 09/16/2023 10:30 AM CDT Therapy Visit [address] [address] Charlie Rincon, PT [facility] [address] [place] [address] 09/19/2023 10:40 AM CDT Therapy Visit [facility] [address] [place] [phone] Charlie Rincon, PT [facility] [address] [place] [address] 09/23/2023 10:30 AM CDT Therapy Visit [facility] [address] [place] [address] Charlie Rincon, PT [facility] [address] [place] [address] 09/26/2023 10:40 AM CDT Therapy Visit [facility] [address] [place] [phone] Charlie Rincon, PT [facility] [address] [place] [address] 10/16/2023 9:15 AM CDT Virtual Visit [facility] [address] [address] Corinne Moreno MD [address] [place] [address] documented as of this encounter Visit Diagnoses Not on filedocumented in this encounter Care Teams Child And Family Therapist Relationship Specialty Start Date End Date [facility], [facility] [address] [place] [address] PCP - General 03/28/15 documented as of this encounter
--- OUTSIDE RECORDS SUMMARY | 2023-07-15 10:34 | XMS_ITS | Encounter Summary ---
Author Name Unknown Organization [place] Address [address] [place] [address]. [place] [address] Care Team Providers Care Line Maintainer Name Role Phone Clinic, [facility] Primary Care Provider Encounter Details Date Type Department Care Team (Late st Contact Info) Description 06/18/2023 MyC Medical Advice [facility] [place] [address] [facility] [address] [place] [phone] [place] [address] [place] [address] [address] [place], [place] [phone] Social History Tobacco Use Types Packs/Day Years [...] 08/05/2023 10:30 AM CDT Therapy Visit [facility] [address] [place] [phone] Charlie Rincon, PT [facility] [address] [place] [address] 08/08/2023 10:40 AM CDT Therapy Visit [facility] [address] [place] [address] Charlie Rincon, PT [facility] [address] [place] [address] 08/12/2023 10:30 AM CDT Therapy Visit [facility] [address] [place] [phone] Charlie Rincon, PT [facility] [address] [place] [address] 08/15/2023 10:40 AM CDT Therapy Visit [address] [address] [place] [address] [address] 08/19/2023 10:30 AM CDT Therapy Visit [facility] [address] [place] [phone] Charlie Rincon, PT [facility] [address] [place] [address] 08/22/2023 10:40 AM CDT Therapy Visit [facility] [address] [place] [address] Charlie Rincon, PT [facility] [address] [place] [address] 08/26/2023 10:30 AM CDT Therapy Visit [address] [place] [address] Charlie Rincon, PT [facility] [address] [place] [address] 08/28/2023 10:50 AM CDT Therapy Visit [address] [address] Charlie Rincon, PT [facility] [address] [place] [address] 09/02/2023 10:50 AM CDT Therapy Visit [address] [address] [place] [address] [place] [address] 09/05/2023 10:40 AM CDT Therapy Visit [address] [address] [place] [address] [place] [address] 09/09/2023 10:10 AM CDT Therapy Visit [address] [address] [place] [address] [place] [address] 09/12/2023 10:40 AM CDT Therapy Visit [address] [address] Charlie Rincon, PT [facility] [address] [place] [address] 09/16/2023 10:30 AM CDT Therapy Visit [facility] [address] [place] [address] Charlie Rincon, PT [facility] [address] [place] [address] 09/19/2023 10:40 AM CDT Therapy Visit [facility] [address] [place] [address] Charlie Rincon, PT [facility] [address] [place] [address] 09/23/2023 10:30 AM CDT Therapy Visit [facility] [address] [place] [address] Charlie Rincon, PT [facility] [address] [place] [address] 09/26/2023 10:40 AM CDT Therapy Visit [facility] [address] [place] [phone] Charlie Rincon, PT [facility] [address] [place] [address] 10/16/2023 9:15 AM CDT Virtual Visit [facility] [address] [address] Corinne Moreno MD [address] [place] [address] [address] [place] [address] documented as of this encounter Visit Diagnoses Not on filedocumented in this encounter Care Teams Line Maintainer Relationship Specialty Start Date End Date Clinic, [facility] [address] [place] [address] PCP - General 03/28/15 documented as of this encounter
--- OUTSIDE RECORDS SUMMARY | 2023-07-15 10:34 | XMS_ITS | Encounter Summary ---
Author Name Unknown Organization [place] Address [address] [place] [address]. [place] [address] Care Team Providers Care Diesel Scoop Operator Name Role Phone Clinic, [facility] Primary Care Provider Reason for Referral * Rehab Therapy Physical Therapy (Routine) - Pending Review Specialty Diagnoses / Procedures Referred By Aaron t Referred To Contact Diagnoses Left hip pain Right hip pain Trochanteric bursitis Erick Gregory PA-C [facility] [address] [place] [address] [place] [address] Referral ID Status Reason Start Date Expiration Date V isits Requested Visits Authorized [id number] Pending Review 05/03/2023 05/02/2024 1 1 Question Answer Course of Action: Evaluation and Treatment Specialty Services: Per Associated Diagnosis Scheduling Instructions: [facility] [place] [facility] will call you to coordinate your care as prescribed by your provider. If you don't hear from a utility sales representative within 2 business days, please call . Comments Please be aware that coverage of these services is subject to the terms and limitations of your health insurance plan. Call member services at your health plan with any benefit or coverage questions. [facility] [place] [facility] will call you to coordinate your care as prescribed by your provider. If you don't hear from a utility sales representative within 2 business days, please call . L COOK Encounter Details Date Type Department Care Team (Late st Contact Info) Description 05/03/2023 Transcribe Orders GENERIC EXTERNAL DATA DEPARTMENT Erick Gregory PA-C [facility] [address] [place] [address] [place] [address] Left hip pain (Primary Dx); Right hip pain; Trochanteric bursitis Social History Tobacco Use Types Packs/Day Years [...] Description 08/05/2023 10:30 AM CDT Therapy Visit [address] [address] Charlie Rincon, PT [facility] [address] [place] [address] 08/08/2023 10:40 AM CDT Therapy Visit [address] [address] Charlie Rincon, PT [facility] [address] [place] [address] 08/12/2023 10:30 AM CDT Therapy Visit [address] [address] Charlie Rincon, PT [facility] [address] [place] [address] 08/15/2023 10:40 AM CDT Therapy Visit [facility] [address] [place] [address] [place] [address] [place] [address] 08/19/2023 10:30 AM CDT Therapy Visit [facility] [address] [place] [address] Charlie Rincon, PT [facility] [address] [place] [address] 08/22/2023 10:40 AM CDT Therapy Visit [address] [address] Charlie Rincon, PT [facility] [address] [place] [address] 08/26/2023 10:30 AM CDT Therapy Visit [facility] [address] [place] [phone] Charlie Rincon, PT [facility] [address] [place] [address] 08/28/2023 10:50 AM CDT Therapy Visit [facility] [address] [place] [phone] Charlie Rincon, PT [facility] [address] [place] [address] 09/02/2023 10:50 AM CDT Therapy Visit [facility] [address] [place] [phone] [place] [address] [place] [address] 09/05/2023 10:40 AM CDT Therapy Visit [facility] [address] [place] [phone] [place] [address] [place] [address] 09/09/2023 10:10 AM CDT Therapy Visit [facility] [address] [place] [address] [place] [address] [place] [address] 09/12/2023 10:40 AM CDT Therapy Visit [address] [address] Charlie Rincon, PT [facility] [address] [place] [address] 09/16/2023 10:30 AM CDT Therapy Visit [address] [address] Charlie Rincon, PT [facility] [address] [place] [address] 09/19/2023 10:40 AM CDT Therapy Visit [facility] [address] [place] [phone] Charlie Rincon, PT [facility] [address] [place] [address] 820[address] 09/23/2023 10:30 AM CDT Therapy Visit [address] [address] Charlie Rincon, PT [facility] [address] [place] [address]99 09/26/2023 10:40 AM CDT Therapy Visit [facility] [address] [place] [phone] Charlie Rincon, PT [facility] [address] [place] [address] 10/16/2023 9:15 AM CDT Virtual Visit [facility] [address] [place] [address] Corinne Morneo MD [address] [place] [address] Scheduled Referrals Name Type Priority Associated Diagnoses Orde r Schedule Physical Therapy Director Of Occupational Therapy Referral Referral Routine Left hip pain Right hip pain Trochanteric bursitis Ordered: 05/03/2023 documented as of this encounter Visit Diagnoses Diagnosis Left hip pain- Primary Pain in joint, pelvic region and thigh Right hip pain Pain in joint, pelvic region and thigh Trochanteric bursitis Enthesopathy of hip region documented in this encounter Care Teams Diesel Scoop Operator Relationship Specialty Start Date End Date Clinic, [facility] [address] [place] [address] PCP - General 03/28/15 documented as of this encounter
--- OUTSIDE RECORDS SUMMARY | 2023-07-15 10:34 | XMS_ITS | Encounter Summary ---
Author Name Unknown Organization [employer] Address [address] [place] [address]. [place] [address] Care Team Providers Care Shiatsu Therapist Name Role Phone Clinic, [facility] Primary Care Provider Reason for Visit * Reason Onset Date Comments medication eligibility 07/08/2023 Encounter Details Date Type Department Care Team (Late st Contact Info) Description 07/08/2023 Telephone [facility] Surgery Clinic and [facility]ariatrics Care [place] [address] [facility] [address] [place] [phone] [place] [address] [place] [address] [address] [place], [place] [id number] medication eligibility Social History Tobacco Use Types Packs/Day Years [...] AM CDT documented as of this encounter Miscellaneous Notes * Telephone Encounter - Feig, Antoinette S, RN - 07/08/2023 10:32 AM CDT Patient called and asking if her new diagnosis with the pre-diabetes was enough to get coverage forone of the injectables (specifically asking about the Mounjaro). She also wanted to make sure that Dr. Moreno was considering her dyslipidemia in combination with the pre-diabetes. I told her that they only accept it for the diagnosis of diabetes but she said she has been doing some general research online and it said that sometimes with pre-diabetes and cholesterol issues, you can get it covered, but did not look into it with her specific insurance. She requested I ask Dr. Moreno specifically if she would order it and give it a try despite what I have told her. Antoinette Og RN documented in this encounter Plan of Treatment Upcoming Encounters Date Type Department Care Team (Late st Contact Info) Description 08/05/2023 10:30 AM CDT Therapy Visit [address] [address] Charlie Rincon, PT [facility] [address] [place] [address] 08/08/2023 10:40 AM CDT Therapy Visit [address] [address] Charlie Rincon, PT [facility] [address] [place] [address] 08/12/2023 10:30 AM CDT Therapy Visit [address] [address] Charlie Rincon, PT [facility] [address] [place] [address] 08/15/2023 10:40 AM CDT Therapy Visit [address] [place] [address] [place] [address] [place] [address] 08/19/2023 10:30 AM CDT Therapy Visit [facility] [address] [place] [phone] Charlie Rincon, PT [facility] [address] [place] [address] 08/22/2023 10:40 AM CDT Therapy Visit [address] [address] Charlie Rincon, PT [facility] [address] [place] [address] 08/26/2023 10:30 AM CDT Therapy Visit [facility] [address] [place] [address] Charlie Rincon, PT [facility] [address] [place] [address]21 08/28/2023 10:50 AM CDT Therapy Visit [address] [address] Charlie Rincon, PT [facility] [address] [place] [address] 25966 09/02/2023 10:50 AM CDT Therapy Visit [facility] [address] [place] [phone] [place] [address] [place] [address] 09/05/2023 10:40 AM CDT Therapy Visit [address] [place] [address] [place] [address] [place] [address] 09/09/2023 10:10 AM CDT Therapy Visit [facility] [address] [place] [address] [place] [address] [place] [address] 09/12/2023 10:40 AM CDT Therapy Visit [facility] [address] [place] [address] Charlie Rincon, PT [facility] [address] [place] [address]15 09/16/2023 10:30 AM CDT Therapy Visit [facility] [address] [place] [address] Charlie Rincon, PT [facility] [address] [place] [address] 09/19/2023 10:40 AM CDT Therapy Visit [facility] [address] [place] [phone] Charlie Rincon, PT [facility] [address] [place] [address] 09/23/2023 10:30 AM CDT Therapy Visit [facility] [address] [place] [phone] Charlie Rincon, PT [facility] [address] [place] [address] 09/26/2023 10:40 AM CDT Therapy Visit [facility] [address] [place] [phone] Charlie Rincon, PT [facility] [address] [place] [address] 10/16/2023 9:15 AM CDT Virtual Visit [facility] Care [address] [place] [address] Corinne Moreno MD [address] [place] [address] documented as of this encounter Visit Diagnoses Not on filedocumented in this encounter Care Teams Shiatsu Therapist Relationship Specialty Start Date End Date Clinic, [facility] [address] [place] [address] PCP - General 03/28/15 documented as of this encounter
--- OUTSIDE RECORDS SUMMARY | 2023-07-15 10:34 | XMS_ITS | Encounter Summary ---
Author Name Unknown Organization [place] Address [address] [place] [address]. [place] [address] Care Team Providers Care Video Game Programmer Name Role Phone Clinic, [facility] Primary Care Provider Encounter Details Date Type Department Care Team (Latest Contact Info) Description 05/22/2023 Travel Social History Tobacco Use Types Packs/Day Years [...] Description 08/05/2023 10:30 AM CDT Therapy Visit [facility] [address] [place] [phone] Charlie Rincon, PT [facility] [address] [place] [address] 08/08/2023 10:40 AM CDT Therapy Visit [address] [place] [address] Charlie Rincon, PT [facility] [address] [place] [address] 08/12/2023 10:30 AM CDT Therapy Visit [facility] [address] [place] [phone] Charlie Rincon, PT [facility] [address] [place] [address] 08/15/2023 10:40 AM CDT Therapy Visit [facility] [address] [place] [phone] [place] [address] [place] [address] 08/19/2023 10:30 AM CDT Therapy Visit [facility] [address] [place] [phone] Charlie Rincon, PT [facility] [address] [place] [address] 08/22/2023 10:40 AM CDT Therapy Visit [facility] [address] [place] [phone] Charlie Rincon, PT [facility] [address] [place] [address] 08/26/2023 10:30 AM CDT Therapy Visit [facility] [address] [place] [phone] Charlie Rincon, PT [facility] [address] [place] [address] 22568 08/28/2023 10:50 AM CDT Therapy Visit [facility] [address] [place] [phone] Charlie Rincon, PT [facility] [address] [place] [address] 09/02/2023 10:50 AM CDT Therapy Visit [facility] [address] [place] [phone] [place] [address] [place] [address] 09/05/2023 10:40 AM CDT Therapy Visit [facility] [address] [place] [phone] [place] [address] [place] [address] 09/09/2023 10:10 AM CDT Therapy Visit [facility] [address] [place] [phone] [place] [address] [place] [address] 09/12/2023 10:40 AM CDT Therapy Visit [facility] [address] [place] [phone] Charlie Rincon, PT [facility] [address] [place] [address] 09/16/2023 10:30 AM CDT Therapy Visit [facility] [address] [place] [phone] Charlie Rincon, PT [facility] [address] [place] [address] 09/19/2023 10:40 AM CDT Therapy Visit [facility] [address] [place] [address] Charlie Rincon, PT [facility] [address] [place] [address] 09/23/2023 10:30 AM CDT Therapy Visit [facility] [address] [place] [phone] Charlie Rincon, PT [facility] [address] [place] [address] 09/26/2023 10:40 AM CDT Therapy Visit [facility] [address] [place] [phone] Charlie Rincon, PT [facility] [address] [place] [address] 10/16/2023 9:15 AM CDT Virtual Visit [facility] [address] [phone] Corinne Moreno MD [address] [place] [address] documented as of this encounter Visit Diagnoses Not on filedocumented in this encounter Care Teams Video Game Programmer Relationship Specialty Start Date End Date Clinic, [facility] [address] [place] [address] PCP - General 03/28/15 documented as of this encounter
--- OUTSIDE RECORDS SUMMARY | 2023-07-15 10:34 | XMS_ITS | Referral Summary ---
Author Name Unknown Organization [facility] Address [address] [place] [address]. [place] [address] Care Team Providers Care De Icer Kit Assembler Name Role Phone Clinic, [facility] Primary Care Provider Encounters Date Type Department Care Team Description 07/08/2023 MyC Medical Advice [facility] [address] [phone] Antoinette Og RN 07/08/2023 Telephone [facility] [address] [phone] Corinne Moreno MD medication eligibility 07/05/2023 Travel 07/05/2023 10:45 AM CDT Lab [facility] [address] [place] [phone] Elevated glucose 06/24/2023 MyC Medical Advice [facility] [address] [phone] Lindy Johansen MA 06/24/2023 9:45 AM CDT Virtual Visit [facility] [address] [place] [address] Corinne Moreno MD Class 1 obesity due to excess calories with serious comorbidity and body mass index (BMI) of 30.0 to 30.9 in adult (Primary Dx); Hyperlipidemia LDL goal <160; Benign essential hypertension; History of migraine headaches; Elevated glucose 06/18/2023 MyC Medical Advice [facility] [address] [place] [phone] Corinne Moreno MD 05/22/2023 Travel 05/22/2023 1:00 PM CDT Therapy Visit [address] [phone] Charlie Rincon, PT Trochanteric bursitis of both hips (Primary Dx) 05/03/2023 Transcribe Orders GENERIC EXTERNAL DATA DEPARTMENT Erick Gregory PA-C Left hip pain (Primary Dx); Right hip pain; Trochanteric bursitis 04/24/2023 Travel 04/24/2023 10:50 AM PROCESS SAFETY ENGINEERING TECHNOLOGIST Therapy Visit [address] [phone] Charlie Rincon, PT Lumbar pain (Primary Dx) 04/23/2023 MyC Medical Advice [facility] [address] [phone] Corinne Moreno MD 04/19/2023 Travel 04/19/2023 1:30 PM PROCESS SAFETY ENGINEERING TECHNOLOGIST Therapy Visit [address] [phone] Charlie Rincon, PT Lumbar pain (Primary Dx) 04/17/2023 Travel 04/17/2023 11:30 AM PROCESS SAFETY ENGINEERING TECHNOLOGIST Therapy Visit [address] [phone] Charlie Rincon, PT Lumbar pain (Primary Dx) from Last 3 Months Allergies Active Allergy Reactions Criticality Noted Date Comments Cats Difficulty breathing 07/14/2010 Dust Mites 08/18/2010 Mold 08/18/2010 Sulfa Antibiotics Rash Low 06/20/2002 Medications Medication Sig Dispensed Refills Start Date End Date Status Ascorbic Acid (VITAMIN C PO) Take 1,000 mg by mouth At Bedtime Active vitamin E 400 units TABS Take 400 Units by mouth every morning Active multivitamin, therapeutic with minerals (THERA-VIT-M) TABS Take 1 tablet by mouth daily Active calcium carb 1250 mg, 500 mg eek,/vitamin D 200 units (OSCAL WITH D) 500-200 MG-UNIT per tablet Take 2 tablets by mouth 2 times daily Active fluticasone (FLONASE) 50 MCG/ACT nasal spray [place] 1-2 sprays into both nostrils At Bedtime Active ketoconazole (NIZORAL) 2 % shampoo Apply topically daily as needed for itching or irritation (With every shampoo (every 3 days)) Active clobetasol (TEMOVATE) 0.05 % cream Apply topically 2 times daily as needed (eczema on leg) Active triamcinolone (KENALOG) 0.1 % ointment Apply topically 2 times daily as needed for irritation (arms) Active ketotifen (ZADITOR/REFRESH ANTI-ITCH) 0.025 % SOLN Place 1 drop into both eyes 2 times daily as needed for itching Active celecoxib (CELEBREX) 200 MG capsule Take 200 mg by mouth daily Active citalopram (CELEXA) 20 MG tablet Take 20 mg by mouth daily Active levothyroxine (SYNTHROID/LEVOT HROID) 75 MCG tablet Take 75 mcg by mouth daily Active atorvastatin (LIPITOR) 20 MG tablet Take 20 mg by mouth daily Active pseudoePHEDrine (SUDAFED) 30 MG tablet Take 30 mg by mouth daily as needed for congestion Active hydrochlorothiaz santo (HYDRODIURIL) 12.5 MG tablet Take 12.5 mg by mouth daily Active losartan (COZAAR) 50 MG tablet Take 50 mg by mouth daily Active topiramate (TOPAMAX) 100 MG tabletIndication s:History of migraine headaches Take 1 tablet (100 mg) by mouth daily 90 tablet 06/24/2023 Active metFORMIN (GLUCOPHAGE XR) 500 MG 24 hr tabletIndication s:Elevated glucose 1 tablet with dinner daily for 2 weeks then 2 tablets with dinner 180 tablet 1 06/24/2023 Active albuterol (PROAIR HFA, PROVENTIL HFA, VENTOLIN HFA) 108 (90 BASE) MCG/ACT inhaler Inhale 2 puffs into the lungs every 3 hours as needed for shortness of breath / dyspnea or wheezing 4 Discontinued(T herapy completed (No AVS)) nystatin (MYCOSTATIN) 878971 UNIT/GM external cream Apply topically daily as needed 4 Discontinued(T herapy completed (No AVS)) montelukast (SINGULAIR) 10 MG tablet Take 10 mg by mouth At Bedtime 4 Discontinued(T herapy completed (No AVS)) aspirin 81 MG EC tablet Take 81 mg by mouth daily 4 Discontinued(T herapy completed (No AVS)) hydrOXYzine (VISTARIL) 25 MG capsule Take 25-50 mg by mouth 4 times daily as needed for anxiety 4 Discontinued(T herapy completed (No AVS)) clopidogrel (PLAVIX) 75 MG tablet Take 75 mg by mouth daily 4 Discontinued(A lternate therapy) cyclobenzaprine (FLEXERIL) 10 MG tabletIndication s:Acute post-operative pain Take 1 tablet (10 mg) by mouth 3 times daily 20 tablet 05/20/2022 4 Discontinued(T herapy completed (No AVS)) topiramate (TOPAMAX) 25 MG tabletIndication s:Class 1 obesity due to excess calories with serious comorbidity and body mass index (BMI) of 30.0 to 30.9 in adult Take 2 tablets (50 mg) by mouth daily 270 tablet 1 11/01/2022 4 Discontinued(D ose adjustment) topiramate (TOPAMAX) 100 MG tabletIndication s:History of migraine headaches Take 1 tablet by mouth once daily 90 tablet 03/13/2023 4 Discontinued(R eorder (No AVS)) Active Problems Problem Noted Date Diagnosed Date Trochanteric bursitis of both hips 05/22/2023 Lumbar pain 03/14/2023 Acute post-operative pain 05/19/2022 Liver nodule 05/19/2022 Diarrhea, unspecified type 05/19/2022 Acute appendicitis with loca lized peritonitis, without perforation, abscess, or gangrene 05/19/2022 Gastroenteritis 04/19/2018 Anemia due to blood loss, acute 04/18/2015 Primary osteoarthritis of right knee 04/18/2015 Status post total right knee replacement on 04/05/15 by Bernie Fox MD 04/11/2015 Total knee replacement status 04/05/2015 Vitamin D deficiency 03/11/2014 07/05/2022 Overview: Vitamin D deficiency (ACG) Chronic right shoulder pain 01/30/201306/25 Overview: [facility] MRI 06/2012 showed Full thickness distal supraspinatus tear, 1.3 cm - s/p steroid injection and PT Alcohol abuse 05/02/2012 07/05/2022 History of colonic polyps 09/07/2010 Overview: Tubular adenoma 2004 Advanced directives, counseling/discussion 08/18 Overview: Advance Care Planning 05/05/2015: Receipt of ACP document: Received: Health Care Directive which was witnessed or notarized on 03-31-15. Document previously scanned on 04-04-15. Validation form completed and sent to be scanned. Code Status needs to be updated to reflect choices in most recent ACP document. Confirmed/documented designated decision maker(s). Added by Silva Bray RN Advance Care Planning Liaison with [employer] Patient states has Advance Directive and will bring in a copy to clinic. 08/18/2010 Allergic state 07/16/2010 Overview: (Problem list name updated by automated process. Provider to review and confirm.) Internal hemorrhoids 07/16/2010 Obesity 07/16/2010 Mild persistent asthma 07/14/2010 Hypothyroidism 07/14/2010 GERD (gastroesophageal reflux disease) 1 Mild major depression 07/14/2010 Seborrheic dermatitis 07/14/2010 Insomnia 07/14/2010 Hyperlipidemia LDL goal <160 07/14/2010 Allergic rhinitis 06/15/2009 07/05/2022 Overview: Flonase Menopause present 06/15/2009 07/05/2022 Mild recurrent major depression (H24) 06/15/2009 07/05/2022 Asthma Sleep apnea Resolved Problems Problem Noted Date Diagnosed Date Resolved Date Greater trochanteric bursitis of right hip 06/30/2021 10/05/2021 Presence of right artificial knee joint 04/22/2015 06/21/2015 Aftercare following right kn ee joint replacement surgery 04/11/2015 06/21/2015 Knee pain 05/04/2014 06/08/2014 Right shoulder pain 04/15/2013 09/29/19 14 S/P rotator cuff repair 04/15/201305/2013 Osteoarthritis 07/16/2010 04/18/2015 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 Provider to review Immunizations Name Administration Dates Next Due HEPA 06/27/1996 HepB 12/16/1996,09/19/1996,06/27/1996 Influenza (IIV3) PF 01/18/1997,01/06/1996 Pneumococcal 23 valent 07/14/2010,01/06/1996 TD,PF 7+ (Tenivac) 09/19/1996 TDAP Vaccine (Adacel) 07/14/2010 Zoster vaccine, live 07/14/2010 Social History Tobacco Use Types Packs/Day Years [...] Orientation Straight 10/09/2021 11 :55 AM CDT Last Filed Vital Signs Vital Sign Reading Time Taken Comments Blood Pressure 105/64 05/20/2022 3:47 PM CDT Pulse 97 05/20/2022 3:47 PM CDT Temperature 36.3 ??C (97.4 ??F) 05/20/2022 3:47 PM CD T Respiratory Rate 18 05/20/2022 3:47 PM CDT Oxygen Saturation 96% 05/20/2022 3:47 PM CDT Inhaled Oxygen Concentration - - Weight 78 kg (172 lb) 06/24/2023 9:30 AM CDT Height 160 cm (5' 3) 06/24/2023 9:30 AM CDT Body Mass Index 30.47 06/24/2023 9:30 AM CDT Plan of Treatment Upcoming Encounters Date Type Department Care Team (Late st Contact Info) Description 08/05/2023 10:30 AM CDT Therapy Visit [address] [phone] Charlie Rincon, PT [facility] [id number] [place] [address] 08/08/2023 10:40 AM CDT Therapy Visit [address] [phone] Charlie Rincon, PT [facility] [address] [place] [address] 08/12/2023 10:30 AM CDT Therapy Visit [address] [phone] Charlie Rincon, PT [facility] [address] [place] [address] 08/15/2023 10:40 AM CDT Therapy Visit [address] [phone] [place] [address] [place] [address] 08/19/2023 10:30 AM CDT Therapy Visit [address] [place] [address] Charlie Rincon, PT [facility] [address] [place] [address] 08/22/2023 10:40 AM CDT Therapy Visit [facility] [address] [place] [phone] Charlie Rincon, PT [facility] [id number] [place] [address] 08/26/2023 10:30 AM CDT Therapy Visit [facility] [address] [place] [phone] Charlie Rincon, PT [facility] [id number] [place] [address] 08/28/2023 10:50 AM CDT Therapy Visit [facility] [address] [place] [phone] Charlie Rincon, PT [facility] [id number] [place] [address] 09/02/2023 10:50 AM CDT Therapy Visit [facility] [address] [place] [phone] [place] [address] [place] [address] [place] [address] 09/05/2023 10:40 AM CDT Therapy Visit [facility] [address] [place] [phone] [place] [address] [place] [address] [place] [address] 09/09/2023 10:10 AM CDT Therapy Visit [address] [place] [address] [place] [address] [place] [address] 09/12/2023 10:40 AM CDT Therapy Visit [facility] [address] [place] [phone] Charlie Rincon, PT [facility] [id number] [place] [address] 09/16/2023 10:30 AM CDT Therapy Visit [address] [phone] Charlie Rincon, PT [facility] [phone] [place] [address] 09/19/2023 10:40 AM CDT Therapy Visit [address] [phone] Charlie Rincon, PT [facility] [address] [place] [address] 09/23/2023 10:30 AM CDT Therapy Visit [facility] [address] [place] [phone] Charlie Rincon, PT [facility] [id number] [place] [address] 09/26/2023 10:40 AM CDT Therapy Visit [facility] [address] [place] [phone] Charlie Rincon, PT [facility] [id number] [place] [address] 10/16/2023 9:15 AM CDT Virtual Visit [facility] [place] [address] [facility] [address] [place] [address] Corinne Moreno MD [address] [facility] [address] [place] [address] Medical Devices Implanted Type Area Numerical Control Router Operator Device Identifier Shelf Expiration Date Model / Serial / Lot Bone Cement Radiopaque Simplex P Speedset 6192-1-001 Implanted:Qty: 2 on 04/05/2015 by Bernie Fox MD at [facility] Right: Knee [employer] 10/26/2015 6192-1-001 / / [id number] Imp Comp Fem Strk Triathln Ps Rt 3 5515-F-302 Implanted:Qty: 1 on 04/05/2015 by Bernie Fox MD at [facility] Right: Knee [employer] 01/16/2020 5515-F-302 / / [id number] Imp Baseplate Tibial Howm Tri 2 5520-B-200 Implanted:Qty: 1 on 04/05/2015 by Bernie Fox MD at [facility] Right: Knee [employer] 09/25/2019 5520-B-200 / / [id number] Imp Comp Patella Howm Tri Asym [id number] [id number]-G-320 Implanted:Qty: 1 on 04/05/2015 by Bernie Fox MD at [facility] Right: Knee [employer] 03/14/2020 5551-G-320 / / [id number] Imp Insert Tibial Howm Tri Size 2 13mm 5532-G-213 Implanted:Qty: 1 on 04/05/2015 by Bernie Fox MD at [facility] Right: Knee [employer] 11/25/2019 5532-G-[id number] / / [id number] Procedures Procedure Name Priority Date/Time Associated Diagnosis Comments HEMOGLOBIN A1C Routine 07/05/2023 10:51 AM CDT Elevated glucose BASIC METABOLIC PANEL Routine 05/20/2022 6:54 AM CDT THYROID STIMULATING HORMONE (TSH) (EXTERNAL RESULT) Routine 01/04/2022 11:05 AM PROCESS SAFETY ENGINEERING TECHNOLOGIST LIPID PANEL (EXTERNAL RESULT) Routine 01/04/2022 11:05 AM PROCESS SAFETY ENGINEERING TECHNOLOGIST ASTHMA ACTION PLAN Routine 01/30/2012 2: 51 PM PROCESS SAFETY ENGINEERING TECHNOLOGIST Mild persistent asthma COLONOSCOPY Routine 09/07/2010 9:41 AM CDT MA SCREENING DIGITAL BILATERAL Routine 07/21/2010 10:43 AM CDT from Last 3 Months or Most Recently Relevant to Health Maintenance Results * (ABNORMAL) Hemoglobin A1c (07/05/2023 10:51 AM CDT) Hemoglobin A1C 5.8(H) <5.7 % 07/05/2023 11:15 AM CDT LABORATORY Comment: Normal <5.7% Prediabetes 5.7-6.4% ?? Diabetes 6.5% or higher Note: Adopted from ADA consensus guidelines. Blood BLOOD SPECIMEN / Unknown Venipuncture / Unknown 07/05/2023 10:51 AM CDT 07/05/2023 10:51 AM CDT P Yajaira Moreno MD LAB - BLOOD ORDERABL ES LABORATORY [facility] Acute [facility] Lab [address] [facility] (1st floor, no room number) [place] [address] * (ABNORMAL) Basic metabolic panel (05/20/2022 6:54 AM CDT) Sodium 141 136 - 145 mmol/L 05/20/2022 7:46 AM CDT LABORATORY Potassium 4.7 3.4 - 5.3 mmol/L 05/20/2022 7:46 AM CDT LABORATORY Chloride 111(H) 98 - 107 mmol/L 05/20/2022 7:46 AM CDT LABORATORY Carbon Dioxide (CO2) 25 22 - 29 mmol/L 05/20/2022 7:46 AM [facility] Anion Gap 5(L) 7 - 15 mmol/L 05/20/2022 7:46 AM T LABORATORY Urea Nitrogen 10.6 8.0 - 23.0 mg/dL 05/20/2022 7:46 AM CDT LABORATORY Creatinine 0.89 0.51 - 0.95 mg/dL 05/20/2022 7:46 AM [facility] Calcium 8.7(L) 8.8 - 10.2 mg/dL 05/20/2022 7:46 AM [facility] Glucose 139(H) 70 - 99 mg/dL 05/20/2022 7:46 AM [facility] GFR Estimate 68 >60 mL/min/1.7 3m2 05/20/2022 7:46 AM [facility] LABORATORY Comment:eGFR calculated usin 2020 CKD-EPI equation. Blood STRUCTURE OF RIGHT HAND / Unknown Venipuncture / Unknown 05/20/2022 6:54 AM CDT 05/20/2022 7:16 AM T Trista Raya MD LAB - BLOOD ORDERABL ES LABORATORY [facility] Acute [facility] Lab [address] floor, [address] [place] [address], [place] [phone] * Thyroid Stimulating Hormone (TSH) (External Result) (01/04/2022 11:05 AM PROCESS SAFETY ENGINEERING TECHNOLOGIST) TSH (External) 3.810 0.270 - 4.200 uIU/mL [facility] Blood 01/04/2022 11:0 5 AM PROCESS SAFETY ENGINEERING TECHNOLOGIST Narrative [facility] - 01/04/2022 11:05 AM PROCESS SAFETY ENGINEERING TECHNOLOGIST [facility] LAB RESULT Provider Outside LAB - HIM EXTERNAL R ESULT [facility] [address] [place] [address], [facility] [phone] * (ABNORMAL) Lipid Panel (External Result) (01/04/2022 11:05 AM PROCESS SAFETY ENGINEERING TECHNOLOGIST) Cholesterol (External) 238(A) 90 - 199 mg/dL [facility] Triglycerides (External) 151(A) 40 - 149 mg/dL [facility] HDL Cholesterol (External) 46 >=50 mg/dL [facility] LDL Cholesterol Calculated (External) 162 <100 mg/dL [facility] Blood 01/04/2022 11:0 5 AM PROCESS SAFETY ENGINEERING TECHNOLOGIST Narrative [facility] - 01/04/2022 11:05 AM PROCESS SAFETY ENGINEERING TECHNOLOGIST [facility] LAB RESULT Provider Outside LAB - HIM EXTERNAL R ESULT [address] [phone] * COLONOSCOPY (09/07/2010 9:41 AM CDT) COLONOSCOPY [facility] Patient Name: Cuca Bolden ?Procedure Date: 09/07/2010 9:41:21 AM ? Date of : 1950 ?Admit Type: Outpatient ? Age: 60 ? Gender: Female ? Attending MD: Dimitry Wasserman MD ? Procedure: ?Colonoscopy Indications: ?Screening for colorectal malignant neoplasm, High ?risk colon cancer surveillance: Personal history of ?colonic polyps Providers: ?Dimitry Pederson MD Referring MD: ? Soren Jones MD, RELL Alexander Medicines: ?Fentanyl (Sublimaze) IVP 200 mcgs, Versed ?(Midazolam) IVP 4 mgs Complications: ?No immediate complications Procedure: ?Pre-Anesthesia Assessment: ?- Prior to the procedure, a History and Physical ?was performed, and patient medications and ?allergies were reviewed. The patient is competent. ?The risks and benefits of the procedure and the ?sedation options and risks were discussed with the ?patient. All questions were answered and informed ?consent was obtained. Patient identification and ?proposed procedure were verified by the physician ?in the pre-procedure area. Mental Status ?Examination: alert and oriented. Airway ?Examination: normal oropharyngeal airway and neck ?mobility. Respiratory Examination: clear to ?auscultation. CV Examination: normal. Prophylactic ?Antibiotics: The patient does not require ?prophylactic antibiotics. Prior Anticoagulants: The ?patient has taken no previous anticoagulant or ?antiplatelet agents. ASA Grade Assessment: II - A ?patient with mild systemic disease. After reviewing ?the risks and benefits, the patient was deemed in ?satisfactory condition to undergo the procedure. ?The anesthesia plan was to use moderate sedation / ?analgesia (conscious sedation). Immediately prior ?to administration of medications, the patient was ?re-assessed for adequacy to receive sedatives. The ?heart rate, respiratory rate, oxygen saturations, ?blood pressure, adequacy of pulmonary ventilation, ?and response to care were monitored throughout the ?procedure. The physical status of the patient was ?re-assessed after the procedure. ?After obtaining informed consent, the colonoscope ?was passed under direct vision. Throughout the ?procedure, the patient's blood pressure, pulse, and ?oxygen saturations were monitored continuously. The ?Colonoscope was introduced through the anus and ?advanced to the cecum, identified by appendiceal ?orifice & ileocecal valve. The colonoscopy was ?performed without difficulty. The patient tolerated ?the procedure well. The quality of the bowel ?preparation was good. ? Findings: ? The perianal and digital rectal examinations were normal. The entire ? examined colon appeared normal on direct and retroflexion views. ? Impression: ? - The entire examined colon is normal on direct and ?retroflexion views. Recommendation: ? - Repeat colonoscopy in 5 years for surveillance. ? Electronically signed by Dimitry Pederson MD __ Dimitry Pederson MD Signed Date: 09/07/2010 10:05:08 AM Number of Addenda: 0 I was physically present for the entire viewing portion of the exam. Note Initiated On: 09/07/2010 9:41:21 AM Scope Withdrawal Time: 0 hours 6 minutes 14 seconds Total Procedure Duration: 0 hours 12 minutes 52 seconds RADIOLOGY RESULTS 09/07/2010 9:41 AM CDT Soren Jones MD PROCEDURES RADIOLOGY RESULTS * Mammo Screening digital (bilat) (07/21/2010 10:43 AM CDT) Anatomical Region Laterality Modality Breast Bilateral Other 07/21/2010 10:4 3 AM CDT Impressions 07/27/2010 8:16 AM CDT SCREENING MAMMOGRAPHY, BILATERAL, DIGITAL, w/CAD ??July 21, 2010. HISTORY/COMPARISON: SAGAR CASTILLO 06/24/2008 BREAST PARENCHYMAL PATTERN: ??Heterogeneously dense. FINDINGS: ??Negative. ?? IMPRESSION: ??BI-RADS 1, NEGATIVE. 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 Expl anation Advance Directives and Living Will 04/04/2015 Health Care Directiv e 03/31/15 * Full Code (Latest Code Status on File) Date Activated Date Inactivated Comments 04/20/2018 10:03 AM 05/19/2022 3:13 AM Question Answer Comments Code status determined by: Discussion with boyd nt/legal decision maker * Full Code Date Activated Date Inactivated Comments 04/19/2018 3:13 PM 04/20/2018 10:03 AM Question Answer Comments Code status determined by: AD/POLST (pat ient/legal decision maker unavailable) Care Teams De Icer Kit Assembler Relationship Specialty Start Date End Date [facility], [facility] [address] [place] [address] PCP - General 03/28/15
--- OUTSIDE RECORDS SUMMARY | 2023-07-15 10:34 | XMS_ITS | Encounter Summary ---
Author Name Unknown Organization [place] Address [address] [place] [address]. [place] [address] Care Team Providers Care Die Storage Clerk Name Role Phone Clinic, [facility] Primary Care Provider Encounter Details Date Type Department Care Team (Latest Contact Info) Description 07/05/2023 Travel Social History Tobacco Use Types Packs/Day [...] Description 08/05/2023 10:30 AM CDT Therapy Visit [facility] [address] [place] [phone] Charlie Rincon, PT [facility] [address] [place] [address] 08/08/2023 10:40 AM CDT Therapy Visit [facility] [address] [place] [address] Charlie Rincon, PT [facility] [phone] [place] [address] 08/12/2023 10:30 AM CDT Therapy Visit [facility] [address] [place] [address] Charlie Rincon, PT [facility] [address] [place] [address] 08/15/2023 10:40 AM CDT Therapy Visit [address] [address] [place] [address] [place] [address] 08/19/2023 10:30 AM CDT Therapy Visit [address] [phone] Charlie Rincon, PT [facility] [phone] [place] [address] 08/22/2023 10:40 AM CDT Therapy Visit [facility] [address] [place] [address] Charlie Rincon, PT [facility] [id number] [place] [address] 08/26/2023 10:30 AM CDT Therapy Visit [facility] [address] [place] [address] Charlie Rincon, PT [facility] [phone] [place] [address] 08/28/2023 10:50 AM CDT Therapy Visit [facility] [address] [place] [address] Charlie Rincon, PT [facility] [id number] [place] [address] 09/02/2023 10:50 AM CDT Therapy Visit [facility] [address] [place] [phone] [place] [address] [place] [address] 09/05/2023 10:40 AM CDT Therapy Visit [facility] [address] [place] [address] [place] [address] [place] [address] 09/09/2023 10:10 AM CDT Therapy Visit [address] [address] [place] [address] [place] [address] 09/12/2023 10:40 AM CDT Therapy Visit [facility] [address] [place] [address] Charlie Rincon, PT [facility] [id number] [place] [address] 09/16/2023 10:30 AM CDT Therapy Visit [facility] [address] [place] [address] Charlie Rincon, PT [facility] [phone] [place] [address] 09/19/2023 10:40 AM CDT Therapy Visit [facility] [address] [place] [address] Charlie Rincon, PT [facility] [phone] [place] [address] 09/23/2023 10:30 AM CDT Therapy Visit [facility] [address] [place] [address] Charlie Rincon, PT [facility] [address] [place] [address] 09/26/2023 10:40 AM CDT Therapy Visit [address] [address] Charlie Rincon, PT [facility] [phone] [place] [address] 10/16/2023 9:15 AM CDT Virtual Visit [facility] [address] [address] Corinne Moreno MD [address] [place] [address] documented as of this encounter Visit Diagnoses Not on filedocumented in this encounter Care Teams Die Storage Clerk Relationship Specialty Start Date End Date Clinic, [facility] [address] [place] [address] PCP - General 03/28/15 documented as of this encounter
--- OUTSIDE RECORDS SUMMARY | 2023-07-15 10:34 | XMS_ITS | Clinical Summary ---
Author Name Unknown Organization [place] Address [address] [place] [address] Care Team Providers Care Rate Examiner Name Role Phone Clinic, [facility] Primary Care Provider Allergies Active Allergy Reactions Criticality Noted Date [...] Active calcium carb 1250 mg, 500 mg confederated [place],/vitamin D 200 units (OSCAL WITH D) 500-200 MG-UNIT per tablet Take 2 tablets by mouth 2 times daily Active fluticasone (FLONASE) 50 MCG/ACT nasal spray [place] 1-2 sprays into both nostrils At Bedtime [...] Discontinued(T herapy completed (No AVS)) nystatin (MYCOSTATIN) 962715 UNIT/GM external cream Apply topically daily as [...] 04/15/2013 09/29/19 14 S/P rotator cuff repair 04/15/2013 08/05/2013 Osteoarthritis 07/16/2010 04/18/2015 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 Provider to review Encounters Date Type Department Care Team Description 07/08/2023 [facility] [place] [facility] [address] [address] Antoinette Og RN 07/08/2023 Telephone [facility] [address] [place] [address] Corinne Moreno MD medication eligibility 07/05/2023 10:45 AM CDT Lab [facility] [address] [place] [address] Elevated glucose 07/05/2023 Travel 06/24/2023 9:45 AM CDT Virtual Visit [facility] [address] [place] [address] Corinne Moreno MD Class 1 obesity due to excess calories with serious comorbidity and body mass index (BMI) of 30.0 to 30.9 in adult (Primary Dx); Hyperlipidemia LDL goal <160; Benign essential hypertension; History of migraine headaches; Elevated glucose 06/24/2023 MyC Medical Advice [facility] [address] [place] [address] Lindy Johansen MA 06/18/2023 MyC Medical Advice [facility] Surgery [facility] [address] [place] [address] Corinne Moreno MD 05/22/2023 1:00 PM CDT Therapy Visit [address] [address] Charlie Rincon, PT Trochanteric bursitis of both hips (Primary Dx) 05/22/2023 Travel 05/03/2023 Transcribe Orders GENERIC EXTERNAL DATA DEPARTMENT Erick Gregory PA-C Left hip pain (Primary Dx); Right hip pain; Trochanteric bursitis 04/24/2023 10:50 AM AMBULATORY TECHNOLOGIST Therapy Visit [address] [address] Charlie Rincon, PT Lumbar pain (Primary Dx) 04/24/2023 Travel 04/23/2023 MyC Medical Advice [facility] [address] [place] [address] Corinne Moreno MD 04/19/2023 1:30 PM AMBULATORY TECHNOLOGIST Therapy Visit [facility] [address] [place] [address] Charlie Rincon, PT Lumbar pain (Primary Dx) 04/19/2023 Travel 04/17/2023 11:30 AM AMBULATORY TECHNOLOGIST Therapy Visit [address] [address] Charlie Rincon, PT Lumbar pain (Primary Dx) 04/17/2023 Travel from Last 3 Months Immunizations Name Administration Dates Next Due HEPA 06/27/1996 HepB 12/16/1996,09/19/1996,06/27/1996 Influenza (IIV3) PF 01/18/1997,01/06/1996 Pneumococcal 23 valent 07/14/2010,01/06/1996 TD,PF 7+ (Tenivac) 09/19/1996 TDAP Vaccine (Adacel) 07/14/2010 Zoster vaccine, live 07/14/2010 Family History Medical History Relation Comments Cancer Father pancreatic ca Heart Disease Father heart murmur Respiratory Father TB-1940's Hypertension Mother Lipids Mother Psychotic Disorder Mother dementia Arthritis Sister Eye Disorder Sister glaucoma Relation Status Comments Father Mother Sister Social History Tobacco Use Types Packs/Day Years [...] Description 08/05/2023 10:30 AM CDT Therapy Visit [address] [address] Charlie Rincon, PT [facility] [id number] [place] [address] 08/08/2023 10:40 AM CDT Therapy Visit [address] [address] Charlie Rincon, PT [facility] [address] [place] [address] 08/12/2023 10:30 AM CDT Therapy Visit [address] [address] Charlie Rincon, PT [facility] [phone] [place] [address] 08/15/2023 10:40 AM CDT Therapy Visit [address] [address] [place] [address] [place] [address] 08/19/2023 10:30 AM CDT Therapy Visit [facility] [address] [place] [address] Charlie Rincon, PT [facility] [phone] [place] [address] 08/22/2023 10:40 AM CDT Therapy Visit [address] [address] Charlie Rincon, PT [facility] [phone] [place] [address] 08/26/2023 10:30 AM CDT Therapy Visit [address] [address] Charlie Rincon, PT [facility] [phone] [place] [address] 08/28/2023 10:50 AM CDT Therapy Visit [address] [address] Charlie Rincon, PT [facility] [phone] [place] [address] 09/02/2023 10:50 AM CDT Therapy Visit [address] [address] [place] [address] [place] [address] 09/05/2023 10:40 AM CDT Therapy Visit [address] [address] [place] [address] [place] [address] 09/09/2023 10:10 AM CDT Therapy Visit [facility] [address] [place] [address] [place] [address] [place] [address] 09/12/2023 10:40 AM CDT Therapy Visit [facility] [address] [place] [address] Charlie Rincon, PT [facility] [address] [place] [address] 09/16/2023 10:30 AM CDT Therapy Visit [facility] [address] [place] [address] Charlie Rincon, PT [facility] [phone] [place] [address] 09/19/2023 10:40 AM CDT Therapy Visit [facility] [address] [place] [address] Charlie Rincon, PT [facility] [phone] [place] [address] 09/23/2023 10:30 AM CDT Therapy Visit [facility] [address] [place] [address] Charlie Rincon, PT [facility] [address] [place] [address] 09/26/2023 10:40 AM CDT Therapy Visit [facility] [address] [place] [address] Charlie Rincon, PT [facility] [id number] [place] [address] [place] [address] 10/16/2023 9:15 AM CDT Virtual Visit [facility] [place] [address] [facility] [address] [place] [address] Corinne Moreno MD [address] [facility] [address] [place] [address] Health Maintenance Due Date Last Done Comments ANNUAL REVIEW OF HM ORDERS 1950 ASTHMA CONTROL TEST [address] CT COLONOGRAPHY 1948 DEPRESSION ACTION PLAN 1948 DEXA 1950 FLEX SIG 1948 sDNA (Cologuard) 1950 HEPATITIS C SCREENING 1966 LUNG CANCER SCREENING 1998 RSV VACCINE ( & 60+) (1 - 1-dose 60+ series) 2008 PHQ-9 07/23/2012 01/24/2012 ASTHMA ACTION PLAN 01/29/2013 01/30/2012, 07/14/2010 FALL RISK ASSESSMENT 2013 MEDICARE ANNUAL WELLNESS VISIT 2013 07/14/2010 COLONOSCOPY 09/08/2015 09/07/2010 ZOSTER IMMUNIZATION (2 of 3) 09/26/2015 08/01/2015, 07/14/2010 ADVANCE CARE PLANNING 05/04/2020 05/05/2015 , 08/18/2010, 08/18/2010 COLORECTAL CANCER SCREENING 11/17/2020 FIT 11/16/2021 11/16/2020 LIPID 01/04/2023 01/04/2022, 07/27, 03/15/2003 TSH W/FREE T4 REFLEX 01/04/2023 01/04/2022, 08/18/2010, 12/13/2003, Additional history exists COVID-19 Vaccine ( season) 2023 11/22/2022, 01/04/2022, 07/11/2021, Additional history exists GLUCOSE 05/20/2025 05/20/2022, 04/26, 01/04/2022, Additional history exists DTAP/TDAP/TD IMMUNIZATION (4 - Td or Tdap) 12/03/2028 12/03/2018, 07/14/2010, 06/15/2009, Additional history exists MAMMO SCREENING Discontinued 07/21/2010, 11/27/2000 INFLUENZA VACCINE Completed 11/01/2022, , 11/29/2021, Additional history exists Pneumococcal Vaccine: 65+ Years Completed 11/01/2022, 10/19/2014, 04/13/2014, Additional history exists HPV IMMUNIZATION Aged Out No longer e ligible based on patient's age to complete this topic IPV IMMUNIZATION Aged Out No longer e ligible based on patient's age to complete this topic MENINGITIS IMMUNIZATION Aged Out No l onger eligible based on patient's age to complete this topic RSV MONOCLONAL ANTIBODY Aged Out No l onger eligible based on patient's age to complete this topic Medical Devices Implanted Type Area Manager Room Device Identifier Shelf Expiration Date Model / Serial / Lot Bone Cement Radiopaque Simplex P Speedset 6192-1-001 Implanted:Qty: 2 on 04/05/2015 by Bernie Fox MD at [facility] Right: Knee [employer] 10/26/2015 6192-1-001 / / [id number] Imp Comp Fem Strk Triathln Ps Rt 3 5515-F-302 Implanted:Qty: 1 on 04/05/2015 by Bernie Fox MD at [facility] Right: Knee [employer] 01/16/2020 5515-F-302 / / [id number] Imp Baseplate Tibial Howm Tri 2 5520-B-200 Implanted:Qty: 1 on 04/05/2015 by Bernie Fox MD at [facility] Right: Knee [employer] 09/25/2019 5520-B-200 / / [id number] Imp Comp Patella Howm Tri Asym [id number] 5551-G-320 Implanted:Qty: 1 on 04/05/2015 by Bernie Fox MD at [facility] Right: Knee [employer] 03/14/2020 5551-G-320 / / [id number] Imp Insert Tibial Howm Tri Size 2 13mm 5532-G-213 Implanted:Qty: 1 on 04/05/2015 by Bernie Fox MD at [facility] Right: Knee [employer] 11/25/2019 5532-G-[id number] / / [id number] Procedures Procedure Name Priority Date/Time Associated Diagnosis Comments HEMOGLOBIN A1C Routine 07/05/2023 10:51 AM CDT Elevated glucose BASIC METABOLIC PANEL Routine 05/20/2022 6:54 AM CDT THYROID STIMULATING HORMONE (TSH) (EXTERNAL RESULT) Routine 01/04/2022 11:05 AM AMBULATORY TECHNOLOGIST LIPID PANEL (EXTERNAL RESULT) Routine 01/04/2022 11:05 AM AMBULATORY TECHNOLOGIST ASTHMA ACTION PLAN Routine 01/30/2012 2: 51 PM AMBULATORY TECHNOLOGIST Mild persistent asthma COLONOSCOPY Routine 09/07/2010 [...] MD LAB - BLOOD ORDERABL ES LABORATORY [facility] [address] [facility] Lab (1st floor, no room number) [place] [address], [facility] * (ABNORMAL) Basic metabolic panel (05/20/2022 6:54 AM CDT) Sodium 141 136 - 145 mmol/L 05/20/2022 7:46 AM CDT LABORATORY Potassium 4.7 3.4 - 5.3 mmol/L 05/20/2022 7:46 AM CDT LABORATORY Chloride 111(H) 98 - 107 mmol/L 05/20/2022 7:46 AM CDT LABORATORY Carbon Dioxide (CO2) 25 22 - 29 mmol/L 05/20/2022 7:46 AM CDT LABORATORY Anion Gap 5(L) 7 - 15 mmol/L 05/20/2022 7:46 AM CDT LABORATORY Urea Nitrogen 10.6 8.0 - 23.0 mg/dL 05/20/2022 7:46 AM CDT LABORATORY Creatinine 0.89 0.51 - 0.95 mg/dL 05/20/2022 7:46 AM CDT LABORATORY Calcium 8.7(L) 8.8 - 10.2 mg/dL 05/20/2022 7:46 AM CDT LABORATORY Glucose 139(H) 70 - 99 mg/dL 05/20/2022 7:46 AM CDT LABORATORY GFR Estimate 68 >60 mL/min/1.7 3m2 05/20/2022 7:46 AM CDT LABORATORY Comment:eGFR calculated usin 2020 CKD-EPI equation. Blood STRUCTURE OF RIGHT HAND / Unknown Venipuncture / Unknown 05/20/2022 6:54 AM CDT 05/20/2022 7:16 AM CDT Trista Raya MD LAB - BLOOD ORDERABL ES LABORATORY [facility] [address] 1st floor, Room [address] [place] [address], [facility] [phone] * Thyroid Stimulating Hormone (TSH) (External Result) (01/04/2022 11:05 AM AMBULATORY TECHNOLOGIST) TSH (External) 3.810 0.270 - 4.200 uIU/mL [facility] Blood 01/04/2022 11:0 5 AM [facility] - 01/04/2022 11:05 AM [facility] LAB RESULT Provider Outside LAB - [facility] EXTERNAL R ESULT Performing Organization Address City/[facility]/ZIP Co de Phone Number [facility] [address] [phone] * (ABNORMAL) Lipid Panel (External Result) (01/04/2022 11:05 AM AMBULATORY TECHNOLOGIST) Cholesterol (External) 238(A) 90 - 199 mg/dL [facility] Triglycerides (External) 151(A) 40 - 149 mg/dL [facility] HDL Cholesterol (External) 46 >=50 mg/dL [facility] LDL Cholesterol Calculated (External) 162 <100 mg/dL [facility] Blood 01/04/2022 11:0 5 AM [facility] - 01/04/2022 11:05 AM [facility] LAB RESULT Provider Outside LAB - [facility] EXTERNAL R TripOvationULT Performing Organization Address City/[facility]/[place] [address], [facility] [phone] * COLONOSCOPY (09/07/2010 9:41 AM CDT) COLONOSCOPY [facility] Patient Name: Cuca Bolden ?Procedure Date: 09/07/2010 9:41:21 AM ? Date of : 1950 ?Admit Type: Outpatient ? Age: 60 ? Gender: Female ? Attending MD: Dimitry Wasserman MD ? Procedure: ?Colonoscopy Indications: ?Screening for colorectal malignant neoplasm, High ?risk colon cancer surveillance: Personal history of ?colonic polyps Providers: ?Dimitry Pederson MD Referring : ? Soren Jones MD, RELL Alexander Medicines: [...] 1, NEGATIVE. Soren Jones MD IMG MAMMOGRAPHY [facility] RESTREPO from Last 3 Months or Most Recently Relevant to Health Maintenance Advance Directives For more information, please contact: [phone] Documents on File Type Date Recorded Patient Loop Cutter Expl anation Advance Directives and Living Will 04/04/2015 Health Care Directiv e 03/31/15 * Full Code (Latest Code Status on File) Date Activated Date Inactivated Comments 04/20/2018 10:03 AM 05/19/2022 3:13 AM Question Answer Comments Code status determined by: Discussion with bebetoe nt/legal decision maker * Full Code Date Activated Date Inactivated Comments 04/19/2018 3:13 PM 04/20/2018 10:03 AM Question Answer Comments Code status determined by: AD/POLST (pat ient/legal decision maker unavailable) Care Teams Rate Examiner Relationship Specialty Start Date End Date Clinic, [address] [address] PCP - General 03/28/15
--- OUTSIDE RECORDS SUMMARY | 2023-07-15 10:34 | XMS_ITS | Encounter Summary ---
Author Name Unknown Organization [place] Address [address] [place] [address]. [place] [address] Care Team Providers Care Combo Welder Name Role Phone Clinic, [facility] Primary Care Provider Encounter Details Date Type Department Care Team (Late st Contact Info) Description 07/08/2023 MyC Medical Advice [facility] [address] [place] [address] Antoinette Og RN Social History Tobacco Use Types Packs/Day Years [...] Description 08/05/2023 10:30 AM CDT Therapy Visit [facility] [address] [address] Charlie Rincon, PT [facility] [address] [place] [address] 08/08/2023 10:40 AM CDT Therapy Visit [facility] [address] [place] [address] Charlie Rincon, PT [facility] [address] [place] [address] 08/12/2023 10:30 AM CDT Therapy Visit [address] [address] Charlie Rincon, PT [facility] [id number] [place] [address] 08/15/2023 10:40 AM CDT Therapy Visit [address] [address] [place] [address] [address] 08/19/2023 10:30 AM CDT Therapy Visit [address] [address] Charlie Rincon, PT [facility] [id number] [place] [address] 08/22/2023 10:40 AM CDT Therapy Visit [facility] [address] [place] [address] Charlie Rincon, PT [facility] [address] [place] [address] 08/26/2023 10:30 AM CDT Therapy Visit [facility] [address] [place] [address] Charlie Rincon, PT [facility] [address] [place] [address] 08/28/2023 10:50 AM CDT Therapy Visit [facility] [address] [place] [address] Charlie Rincon, PT [facility] [address] [place] [address] 09/02/2023 10:50 AM CDT Therapy Visit [address] [address] [place] [address] [place] [address] 09/05/2023 10:40 AM CDT Therapy Visit [facility] [address] [place] [address] [place] [address] [place] [address] 09/09/2023 10:10 AM CDT Therapy Visit [address] [address] [place] [address] [place] [address] 09/12/2023 10:40 AM CDT Therapy Visit [address] [address] Charlie Rincon, PT [facility] [id number] [place] [address] 09/16/2023 10:30 AM CDT Therapy Visit [address] [address] Charlie Rincon, PT [facility] [address] [place] [address] 09/19/2023 10:40 AM CDT Therapy Visit [facility] [address] [place] [address] Charlie Rincon, PT [facility] [address] [place] [address] 09/23/2023 10:30 AM CDT Therapy Visit [facility] [address] [place] [address] Charlie Rincon, PT [facility] [address] [place] [address] 09/26/2023 10:40 AM CDT Therapy Visit [facility] [address] [place] [address] Charlie Rincon, PT [facility] [address] [place] [address] 10/16/2023 9:15 AM CDT Virtual Visit [facility] [address] [phone] Corinne Moreno MD [address] [place] [address] 200 [place] [address] documented as of this encounter Visit Diagnoses Not on filedocumented in this encounter Care Teams Combo Welder Relationship Specialty Start Date End Date [facility], [facility] [address] [place] [address] PCP - General 03/28/15 documented as of this encounter
--- OUTSIDE RECORDS SUMMARY | 2023-07-15 10:35 | XMS_ITS | Encounter Summary ---
Author Name Unknown Organization [facility] Address [address] [place] [address]. [place] [address] Care Team Providers Care Choirmaster Name Role Phone Clinic, [facility] Primary Care Provider Encounter Details Date Type Department Care Team (Latest Contact Info) Description 04/24/2023 10:50 AM SPORTS NUTRITIONIST Therapy Visit [facility] [id number] [place] [phone] Charlie Rincon, PT [facility] [id number] [place] [address] Lumbar pain (Primary Dx) Social History Tobacco Use Types [...] Progress Notes * Charlie Rincon, PT - 04/24/2023 12:41 PM CST 04/24/23 0500 Appointment Info Signing clinician's name / credentials Charlie Rincon PT Total/Authorized Visits 12 Visits Used 5 Medical Diagnosis chronic lumbar pain without sciatica PT Tx Diagnosis bilateral back pain R>L radiating into the hips Other pertinent information Patient's prescription mentioned wrist and foot pain. pt would like to focus on back and treat wrist and feet later as needed Quick Adds Certification Progress Note/Certification Start of Care Date 03/14/23 Onset of illness/injury or Date of Surgery 01/25/23 Therapy Frequency 2x/week Predicted Duration 6 weeks Certification date from 03/14/23 Certification date to 04/25/23 Progress Note Completed Date 04/24/23 PT Goal 1 Goal Identifier transfers Goal Description pt able to rise from chair pain level 1 Rationale to maximize safety and independence with performance of ADLs and functional tasks;to maximize safety and independence within the home;to maximize safety and independence within the community;to maximize safety and independence with transportation;to maximize safety and independence with self cares Goal Progress Painfree at times. Up to 5/10 PL typically. Cont goal. Target Date 04/25/23 Subjective Report Subjective Report Sit to stand transfers with up to 5/10 LBP. 20-30 min of walking or standing willalso provoke LBP up to 6/10. Compliant with HEP. Is planning to pursue possible THR for the right hip. Objective Measures Objective Measures Objective Measure 1 Objective Measure 1 Objective Measure Trunk ROM Details Extension is most limited and painful. Bilat SB mod limitation with pain. Flex is full withpain returning upright. PT Modalities PT Modalities Cryotherapy Cryotherapy Cryotherapy Minutes (25028) 15 Ice -Type Pack Duration 15 min Location LB Positioning supine (with bolster) Treatment Interventions (PT) Interventions Therapeutic Procedure/Exercise Therapeutic Procedure/Exercise Therapeutic Procedures: strength, endurance, ROM, flexibillity minutes (59792) 30 Therapeutic Procedures Ther Proc 2;Ther Proc 3;Ther Proc 4;Ther Proc 5;Ther Proc 6;Ther Proc 7;TherProc 8;Ther Proc 9;Ther Proc 10 Ther Proc 1 instruction in rising from chair Ther Proc 1 - Details trial of lumbar roll , pt noted increased pain Ther Proc 2 Pelvic tilts Ther Proc 2 - Details 10x5 Ther Proc 3 Abd exer #1, #3 Ther Proc 3 - Details 2x20, 2x10 Ther Proc 4 SKC/DKC Ther Proc 4 - Details 3x10 each Ther Proc 5 Supine piriformis str >90 Ther Proc 5 - Details 3x10 Ther Proc 6 Supine trunk rotation Ther Proc 6 - Details 10x5 Ther Proc 7 Seated trunk flexion Ther Proc 7 - Details 3x10 Ther Proc 8 Pull downs Ther Proc 8 - Details 2x10 red Ther Proc 9 Seated rows PTRx Ther Proc 1 Posterior Pelvic Tilt PTRx Ther Proc 1 - Details 10 x 5 seconds PTRx Ther Proc 2 Abd exer #1, #3 PTRx Ther Proc 2 - Details 2x10 each PTRx Ther Proc 3 Sitting Flexion PTRx Ther Proc 3 - Details 3x 10 seconds Skilled Intervention verbal and tactile cueing Patient Response/Progress tolerated well Ther Proc 9 - Details 20x red Therapeutic Activity PTRx Ther Act 1 Icing PTRx Ther Act 1 - Details No Notes Education Learner/Method No Barriers to Learning Plan Home program see PTRX Plan for next session progress as tolerated Total Session Time Timed Code Treatment Minutes 30 Total Treatment Time (sum of timed and untimed services) 45 DISCHARGE Reason for Discharge: Pt is independent in a HEP and will continue on her own. Equipment Issued: none Discharge Plan: Patient to continue home program. Referring Provider: Ganesh Davis TS NUTRITIONIST documented in this encounter Plan of Treatment Upcoming Encounters Date Type Department Care Team (Late st Contact Info) Description 08/05/2023 10:30 AM CDT Therapy Visit [address] [phone] Charlie Rincon, PT [facility] [id number] [place] [address] 08/08/2023 10:40 AM CDT Therapy Visit [address] [phone] Charlie Rincon, PT [facility] [id number] [place] [address] 08/12/2023 10:30 AM CDT Therapy Visit [address] [phone] Charlie Rincon, PT [facility] [address] [place] [address] 08/15/2023 10:40 AM CDT Therapy Visit [facility] [address] [place] [address] [place] [address] [place] [address] 08/19/2023 10:30 AM CDT Therapy Visit [facility] [address] [place] [phone] Charlie Rincon, PT [facility] [id number] [place] [address] 08/22/2023 10:40 AM CDT Therapy Visit [facility] [address] [place] [phone] Charlie Rincon, PT [facility] [id number] [place] [address] 08/26/2023 10:30 AM CDT Therapy Visit [facility] [address] [place] [phone] Charlie Rincon, PT [facility] [address] [place] [address] 08/28/2023 10:50 AM CDT Therapy Visit [facility] [address] [place] [phone] Charlie Rincon, PT [facility] [id number] [place] [address] 09/02/2023 10:50 AM CDT Therapy Visit [facility] [address] [place] [phone] [place] [address] [place] [address] 09/05/2023 10:40 AM CDT Therapy Visit [facility] [address] [place] [address] [place] [address] [place] [address] [place] [address] 09/09/2023 10:10 AM CDT Therapy Visit [facility] [address] [place] [phone] [place] [address] [place] [place] [address] 09/12/2023 10:40 AM CDT Therapy Visit [facility] [address] [place] [phone] Charlie Rincon, PT [facility] [address] [place] [address] 09/16/2023 10:30 AM CDT Therapy Visit [address] [phone] Charlie Rincon, PT [facility] [id number] [place] [address] 09/19/2023 10:40 AM CDT Therapy Visit [address] [phone] Charlie Rincon, PT [facility] [address] [place] [address] 09/23/2023 10:30 AM CDT Therapy Visit [address] [phone] Charlie Rincon, PT [facility] [address] [place] [address] 09/26/2023 10:40 AM CDT Therapy Visit [facility] [address] [place] [phone] Charlie Rincon, PT [facility] [address] [place] [address] 10/16/2023 9:15 AM CDT Virtual Visit [facility] [address] [phone] Corinne Moreno MD [address] [place] [address] documented as of this encounter Visit Diagnoses Diagnosis Lumbar pain- Primary Lumbago documented in this encounter Care Teams Choirmaster Relationship Specialty Start Date End Date Clinic, [facility] [address] [place] [address] PCP - General 03/28/15 documented as of this encounter
--- OUTSIDE RECORDS SUMMARY | 2023-07-15 10:35 | XMS_ITS | Encounter Summary ---
Author Name Unknown Organization [facility] Address [address] [place] [address]. [place] [address] Care Team Providers Care Case Picker Name Role Phone Clinic, [facility] Primary Care Provider Encounter Details Date Type Department Care Team (Latest Contact Info) Description 04/24/2023 Travel Social History Tobacco Use Types Packs/Day [...] Description 08/05/2023 10:30 AM CDT Therapy Visit [facility] [address] [place] [phone] Charlie Rincon, PT [facility] [address] [place] [address] 08/08/2023 10:40 AM CDT Therapy Visit [address] [place] [address] Charlie Rincon, PT [facility] [id number] [place] [address] 08/12/2023 10:30 AM CDT Therapy Visit [facility] [address] [place] [phone] Charlie Rincon, PT [facility] [address] [place] [address] 08/15/2023 10:40 AM CDT Therapy Visit [facility] [address] [place] [phone] [place] [address] [place] [address] 08/19/2023 10:30 AM CDT Therapy Visit [facility] [address] [place] [phone] Charlie Rincon, PT [facility] [address] [place] [address] 08/22/2023 10:40 AM CDT Therapy Visit [facility] [address] [place] [phone] Charlie Rincon, PT [facility] [address] [place] [address] 08/26/2023 10:30 AM CDT Therapy Visit [facility] [address] [place] [phone] Charlie Rincon, PT [facility] [address] [place] [address] 08/28/2023 10:50 AM CDT Therapy Visit [facility] [address] [place] [phone] Charlie Rincon, PT [facility] [address] [place] [address] 09/02/2023 10:50 AM CDT Therapy Visit [facility] [address] [place] [phone] [place] [address] [place] [address] 09/05/2023 10:40 AM CDT Therapy Visit [facility] [address] [place] [phone] [place] [address] [place] [address] 09/09/2023 10:10 AM CDT Therapy Visit [facility] [address] [place] [phone] [place] [address] [place] [address] 09/12/2023 10:40 AM CDT Therapy Visit [facility] [address] [place] [phone] Charlie Rincon, PT [facility] [address] [place] [address] 09/16/2023 10:30 AM CDT Therapy Visit [facility] [address] [place] [phone] Charlie Rincon, PT [facility] [address] [place] [address] 09/19/2023 10:40 AM CDT Therapy Visit [facility] [address] [place] [address] Charlie Rincon, PT [facility] [address] [place] [address] 09/23/2023 10:30 AM CDT Therapy Visit [facility] [address] [place] [phone] Charlie Rincon, PT [facility] [address] [place] [address] 09/26/2023 10:40 AM CDT Therapy Visit [facility] [address] [place] [phone] Charlie Rincon, PT [facility] [address] [place] [address] 10/16/2023 9:15 AM CDT Virtual Visit [facility] [address] [phone] Corinne Moreno MD [address] [place] [address] documented as of this encounter Visit Diagnoses Not on filedocumented in this encounter Care Teams Case Picker Relationship Specialty Start Date End Date Clinic, [facility] [address] [place] [address] PCP - General 03/28/15 documented as of this encounter
--- OUTSIDE RECORDS SUMMARY | 2023-07-15 10:35 | XMS_ITS | Encounter Summary ---
Author Name Unknown Organization [facility] Address [address] [place] [address]. [place] [address] Care Team Providers Care Dam Tender Assistant Name Role Phone Clinic, [facility] Primary Care Provider Encounter Details Date Type Department Care Team (Latest Contact Info) Description 04/17/2023 11:30 AM JUNIOR ACCOUNT MANAGER Therapy Visit [address] [phone] Charlie Rincon, PT [facility] [id number] [place] [address] Lumbar pain (Primary Dx) Social History Tobacco [...] Description 08/05/2023 10:30 AM CDT Therapy Visit [facility] [address] [place] [phone] Charlie Rincon, PT [facility] [address] [place] [address] 08/08/2023 10:40 AM CDT Therapy Visit [facility] [address] [place] [phone] Charlie Rincon, PT [facility] [address] [place] [address] 08/12/2023 10:30 AM CDT Therapy Visit [facility] [address] [place] [phone] Charlie Rincon, PT [facility] [address] [place] [address] 08/15/2023 10:40 AM CDT Therapy Visit [facility] [address] [place] [phone] [place] [address] [place] [address] [place] [address] 08/19/2023 10:30 AM CDT Therapy Visit [facility] [address] [place] [phone] Charlie Rincon, PT [facility] [address] [place] [address] 08/22/2023 10:40 AM CDT Therapy Visit [facility] [address] [place] [phone] Charlie Rincon, PT [facility] [address] [place] [address] 08/26/2023 10:30 AM CDT Therapy Visit [facility] [address] [place] [phone] Charlie Rincon, PT [facility] [address] [place] [address] 08/28/2023 10:50 AM CDT Therapy Visit [facility] [address] [place] [address] Charlie Rnicon, PT [facility] [address] [place] [address] 09/02/2023 10:50 AM CDT Therapy Visit [facility] [address] [place] [phone] [place] [address] [place] [address] [place] [address] 09/05/2023 10:40 AM CDT Therapy Visit [facility] [address] [place] [phone] [place] [address] [place] [address] [place] [address] 09/09/2023 10:10 AM CDT Therapy Visit [facility] [address] [place] [phone] [place] [address] [place] [address] [place] [address] 09/12/2023 10:40 AM CDT Therapy Visit [facility] [address] [place] [phone] Charlie Rincon, PT [facility] [address] [place] [address] 09/16/2023 10:30 AM CDT Therapy Visit [facility] [address] [place] [phone] Charlie Rincon, PT [facility] [address] [place] [address] 09/19/2023 10:40 AM CDT Therapy Visit [address] [phone] Charlie Rincon, PT [facility] [address] [place] [address] 09/23/2023 10:30 AM CDT Therapy Visit [address] [phone] Charlie Rincon, PT [facility] [address] [place] [address] 09/26/2023 10:40 AM CDT Therapy Visit [address] [phone] Charlie Rincon, PT [facility] [address] [place] [address] 10/16/2023 9:15 AM CDT Virtual Visit [facility] [address] [phone] [place] [address] [place] [address] documented as of this encounter Visit Diagnoses Diagnosis Lumbar pain- Primary Lumbago documented in this encounter Care Teams Dam Tender Assistant Relationship Specialty Start Date End Date Clinic, [facility] [address] [place] [address] PCP - General 03/28/15 documented as of this encounter
--- OUTSIDE RECORDS SUMMARY | 2023-07-15 10:35 | XMS_ITS | Encounter Summary ---
Author Name Unknown Organization [facility] Address [address] [place] [address]. [place] [address] Care Team Providers Care Senior Firewall Engineer Name Role Phone Clinic, [facility] Primary Care Provider Encounter Details Date Type Department Care Team (Latest Contact Info) Description 04/17/2023 Travel Social History Tobacco Use Types Packs/Day [...] Description 08/05/2023 10:30 AM CDT Therapy Visit [facility] [address] [place] [phone] Charlie Rincon, PT [facility] [address] [place] [address] 08/08/2023 10:40 AM CDT Therapy Visit [facility] [address] [place] [phone] Charlie Rincon, PT [facility] [address] [place] [address] 08/12/2023 10:30 AM CDT Therapy Visit [facility] [address] [place] [phone] Charlie Rincon, PT [facility] [address] [place] [address] 08/15/2023 10:40 AM CDT Therapy Visit [facility] [address] [place] [phone] [place] [address] [place] [address] 08/19/2023 10:30 AM CDT Therapy Visit [facility] [address] [place] [phone] Charlie Rincon, PT [facility] [address] [place] [address] 08/22/2023 10:40 AM CDT Therapy Visit [facility] [address] [place] [phone] Charlie Rincon, PT [facility] [address] [place] [address] 08/26/2023 10:30 AM CDT Therapy Visit [facility] [address] [place] [phone] Charlie Rincon, PT [facility] [address] [place] [address] 08/28/2023 10:50 AM CDT Therapy Visit [facility] [address] [place] [phone] Charlie Rincon, PT [facility] [address] [place] [address] 09/02/2023 10:50 AM CDT Therapy Visit [facility] [address] [place] [phone] [place] [address] [place] [address] 09/05/2023 10:40 AM CDT Therapy Visit [facility] [address] [place] [phone] [place] [address] [place] [place] [address] 09/09/2023 10:10 AM CDT Therapy Visit [facility] [address] [place] [phone] [place] [address] [place] [address] [place] [address] 09/12/2023 10:40 AM CDT Therapy Visit [facility] [address] [place] [phone] Charlie Rincon, PT [facility] [address] [place] [address] 09/16/2023 10:30 AM CDT Therapy Visit [facility] [address] [place] [phone] Charlie Rincon, PT [facility] [address] [place] [address] 09/19/2023 10:40 AM CDT Therapy Visit [facility] [address] [place] [address] Charlie Rincon, PT [facility] [address] [place] [address] 09/23/2023 10:30 AM CDT Therapy Visit [facility] [address] [place] [phone] Charlie Rincon, PT [facility] [address] [place] [address] 09/26/2023 10:40 AM CDT Therapy Visit [facility] [address] [place] [phone] Charlie Rincon, PT [facility] [address] [place] [address] 10/16/2023 9:15 AM CDT Virtual Visit [facility] [address] [phone] Corinne Moreno MD [address] [place] [address] documented as of this encounter Visit Diagnoses Not on filedocumented in this encounter Care Teams Senior Firewall Engineer Relationship Specialty Start Date End Date Clinic, [facility] [address] [place] [address] PCP - General 03/28/15 documented as of this encounter
--- OUTSIDE RECORDS SUMMARY | 2023-07-15 10:35 | XMS_ITS | Encounter Summary ---
Author Name Unknown Organization [facility] Address [address] [place] [address]. [place] [address] Care Team Providers Care Engineering Lecturer Name Role Phone Clinic, [facility] Primary Care Provider Encounter Details Date Type Department Care Team (Late st Contact Info) Description 12/20/2021 MyC Medical Advice [facility] [address] [place] [phone] Gi Timmons, [facility] [address] [address] [address] [place] [address] Social History Tobacco Use Types Packs/Day Years Used Date Smoking Tobacco: Former Cigarettes 1 20 Smokeless Tobacco: Never Comments:Quit 1983 Alcohol Use Standard Drinks/Week Comments No 0 (1 standard drink = 0.6 oz pur e alcohol) nothing since 1976 Sex and Gender Information Value Date Recorded Sex Assigned at Female 12/04/2021 9:56 AM CDT Gender Identity Female 10/09/2021 11:55 AM CDT Sexual Orientation Straight 10/09/2021 11 :55 AM CDT documented as of this encounter Plan of Treatment Upcoming Encounters Date Type Department Care Team (Late st Contact Info) Description 08/05/2023 10:30 AM CDT Therapy Visit [facility] [place] [id number] [place] [phone] Charlie Rincon, PT [facility] [address] [place] [address] 08/08/2023 10:40 AM CDT Therapy Visit [facility] [address] [place] [address] Charlie Rincon, PT [facility] [address] [place] [address] 08/12/2023 10:30 AM CDT Therapy Visit [facility] [address] [place] [phone] Charlie Rincon, PT [facility] [address] [place] [address] 08/15/2023 10:40 AM CDT Therapy Visit [address] [phone] [place] [address] [address] 08/19/2023 10:30 AM CDT Therapy Visit [address] [address] Charlie Rincon, PT [facility] [address] [place] [address] 08/22/2023 10:40 AM CDT Therapy Visit [facility] [address] [place] [phone] Charlie Rincon, PT [facility] [address] [place] [address] 08/26/2023 10:30 AM CDT Therapy Visit [address] [phone] Charlie Rincon, PT [facility] [address] [place] [address] 08/28/2023 10:50 AM CDT Therapy Visit [facility] [address] [place] [address] Charlie Rincon, PT [facility] [address] [place] [address] 09/02/2023 10:50 AM CDT Therapy Visit [address] [address] [place] [address] [place] [address] 09/05/2023 10:40 AM CDT Therapy Visit [facility] [address] [place] [phone] [place] [address] [place] [address] 09/09/2023 10:10 AM CDT Therapy Visit [address] [address] [place] [address] [place] [address] 09/12/2023 10:40 AM CDT Therapy Visit [address] [address] Charlie Rincon, PT [facility] [address] [place] [address] 09/16/2023 10:30 AM CDT Therapy Visit [address] [address] Charlie Rincon, PT [facility] [address] [place] [address] 09/19/2023 10:40 AM CDT Therapy Visit [facility] [address] [place] [phone] Charlie Rincon, PT [facility] [address] [place] [address] 09/23/2023 10:30 AM CDT Therapy Visit [address] [address] Charlie Rincon, PT [facility] [address] [place] [address] 09/26/2023 10:40 AM CDT Therapy Visit [facility] [address] [place] [phone] Charlie Rincon, PT [facility] [address] [place] [address] 10/16/2023 9:15 AM CDT Virtual Visit [facility] [address] [phone] Corinne Moreno MD [address] [place] [address] documented as of this encounter Visit Diagnoses Not on filedocumented in this encounter Care Teams Engineering Lecturer Relationship Specialty Start Date End Date [facility], [facility] [address] [place] [address] PCP - General 03/28/15 documented as of this encounter
--- OUTSIDE RECORDS SUMMARY | 2023-07-15 10:35 | XMS_ITS | Encounter Summary ---
Author Name Unknown Organization [place] Address [address] [place] [address]. [place] [address] Care Team Providers Care Casing Splitter Name Role Phone Clinic, [facility] Primary Care Provider Encounter Details Date Type Department Care Team (Latest Contact Info) Description 04/19/2023 1:30 PM PROJECT SCHEDULER Therapy Visit [address] [phone] Charlie Rincon, PT [facility] [address] [place] [address] Lumbar pain (Primary Dx) Social History Tobacco [...] Description 08/05/2023 10:30 AM CDT Therapy Visit [facility] [address] [place] [phone] Charlie Rincon, PT [facility] [address] [place] [address] 08/08/2023 10:40 AM CDT Therapy Visit [facility] [address] [place] [phone] Charlie Rincon, PT [facility] [address] [place] [address] 08/12/2023 10:30 AM CDT Therapy Visit [facility] [address] [place] [phone] Charlie Rincon, PT [facility] [address] [place] [address] 08/15/2023 10:40 AM CDT Therapy Visit [facility] [address] [place] [phone] [place] [address] [place] [address] [place] [address] 08/19/2023 10:30 AM CDT Therapy Visit [facility] [address] [place] [phone] Charlie Rincon, PT [facility] [address] [place] [address] 08/22/2023 10:40 AM CDT Therapy Visit [facility] [address] [place] [phone] Charlie Rincon, PT [facility] [address] [place] [address] 08/26/2023 10:30 AM CDT Therapy Visit [facility] [address] [place] [phone] Charlie Rincon, PT [facility] [address] [place] [address] 08/28/2023 10:50 AM CDT Therapy Visit [facility] [address] [place] [address] Charlie Rincon, PT [facility] [address] [place] [address] 09/02/2023 10:50 AM CDT Therapy Visit [facility] [address] [place] [phone] [place] [address] [place] [address] 09/05/2023 10:40 AM CDT Therapy Visit [facility] [address] [place] [phone] [place] [address] [place] [address] 09/09/2023 10:10 AM CDT Therapy Visit [facility] [address] [place] [phone] [place] [address] [place] [address] 09/12/2023 10:40 AM CDT Therapy Visit [facility] [address] [place] [phone] Charlie Rincon, PT [facility] [address] [place] [address] 09/16/2023 10:30 AM CDT Therapy Visit [facility] [address] [place] [phone] Charlie Rincon, PT [facility] [address] [place] [address] 09/19/2023 10:40 AM CDT Therapy Visit [address] [address] Charlie Rincon, PT [facility] [address] [place] [address] 09/23/2023 10:30 AM CDT Therapy Visit [address] [phone] Charlie Rincon, PT [facility] [address] [place] [address] 09/26/2023 10:40 AM CDT Therapy Visit [address] [address] Charlie Rincon, PT [facility] [address] [place] [address] 10/16/2023 9:15 AM CDT Virtual Visit [facility] [address] [phone] [place] [address] [place] [address] documented as of this encounter Visit Diagnoses Diagnosis Lumbar pain- Primary Lumbago documented in this encounter Care Teams Casing Splitter Relationship Specialty Start Date End Date Clinic, [facility] [address] [place] [address] PCP - General 03/28/15 documented as of this encounter
--- OUTSIDE RECORDS SUMMARY | 2023-07-15 10:35 | XMS_ITS | Encounter Summary ---
Author Name Unknown Organization [place] Address [address] [place] [address]. [place] [address] Care Team Providers Care Hospital Attendant Name Role Phone Clinic, [facility] Primary Care Provider Encounter Details Date Type Department Care Team (Late st Contact Info) Description 01/17/2022 MyC Medical Advice [facility] [address] [place] [phone] Corinne Moreno MD [address] [facility] [address] [place], [place] [id number] Social History Tobacco Use Types Packs/Day Years [...] CDT Therapy Visit [facility] [place] [address] [place] [phone] Charlie Rincon, PT [facility] [address] [place] [address] 08/08/2023 10:40 AM CDT Therapy Visit [facility] [address] [place] [phone] Charlie Rincon, PT [facility] [address] [place] [address] 08/12/2023 10:30 AM CDT Therapy Visit [address] [phone] Charlie Rincon, PT [facility] [address] [place] [address] 08/15/2023 10:40 AM CDT Therapy Visit [address] [phone] [place] [address] [place] [address] [address] 08/19/2023 10:30 AM CDT Therapy Visit [address] [phone] Charlie Rincon, PT [facility] [address] [place] [address] 08/22/2023 10:40 AM CDT Therapy Visit [address] [phone] Charlie Rincon, PT [facility] [address] [place] [address] 08/26/2023 10:30 AM CDT Therapy Visit [address] [address] Charlie Rincon, PT [facility] [address] [place] [address] 08/28/2023 10:50 AM CDT Therapy Visit [facility] [address] [place] [phone] Charlie Rincon, PT [facility] [address] [place] [address] 09/02/2023 10:50 AM CDT Therapy Visit [address] [address] [place] [address] [place] [place] [address] 09/05/2023 10:40 AM CDT Therapy Visit [facility] [address] [place] [phone] [place] [address] [place] [place] [address] 09/09/2023 10:10 AM CDT Therapy Visit [address] [phone] [place] [address] [place] [place] [address] 09/12/2023 10:40 AM CDT Therapy Visit [address] [address] Charlie Rincon, PT [facility] [address] [place] [address] 09/16/2023 10:30 AM CDT Therapy Visit [address] [address] Charlie Rincon, PT [facility] [address] [place] [address] 09/19/2023 10:40 AM CDT Therapy Visit [facility] [address] [place] [phone] Charlie Rincon, PT [facility] [address] [place] [address] 09/23/2023 10:30 AM CDT Therapy Visit [facility] [address] [place] [phone] Charlie Rincon, PT [facility] [address] [place] [address] 09/26/2023 10:40 AM CDT Therapy Visit [facility] [address] [place] [address] Charlie Rincon, PT [facility] [address] [place] [address] 10/16/2023 9:15 AM CDT Virtual Visit [facility] [address] [phone] Corinne Moreno MD [address] [place] [address] 200 [place] [address] documented as of this encounter Visit Diagnoses Not on filedocumented in this encounter Care Teams Hospital Attendant Relationship Specialty Start Date End Date [facility], [facility] [address] [place] [address] PCP - General 03/28/15 documented as of this encounter
--- OUTSIDE RECORDS SUMMARY | 2023-07-15 10:35 | XMS_ITS | Encounter Summary ---
Author Name Unknown Organization [place] Address [address] [place] [address]. [place] [address] Care Team Providers Care Textbook Associate Name Role Phone Clinic, [facility] Primary Care Provider Encounter Details Date Type Department Care Team (Latest Contact Info) Description 04/19/2023 Travel Social History Tobacco Use Types Packs/Day [...] Description 08/05/2023 10:30 AM CDT Therapy Visit [facility] [address] [place] [phone] Charlie Rincon, PT [facility] [address] [place] [address] 08/08/2023 10:40 AM CDT Therapy Visit [facility] [address] [place] [address] Charlie Rincon, PT [facility] [address] [place] [address] 08/12/2023 10:30 AM CDT Therapy Visit [facility] [address] [place] [address] Charlie Rincon, PT [facility] [address] [place] [address] 08/15/2023 10:40 AM CDT Therapy Visit [facility] [address] [place] [phone] [place] [address] [place] [address] 08/19/2023 10:30 AM CDT Therapy Visit [facility] [address] [place] [phone] Charlie Rincon, PT [facility] [address] [place] [address] 08/22/2023 10:40 AM CDT Therapy Visit [facility] [address] [place] [phone] Charlie Rincon, PT [facility] [address] [place] [address] 08/26/2023 10:30 AM CDT Therapy Visit [facility] [address] [place] [phone] Charlie Rincon, PT [facility] [address] [place] [address] 08/28/2023 10:50 AM CDT Therapy Visit [facility] [address] [place] [phone] Charlie Rincon, PT [facility] [address] [place] [address] 09/02/2023 10:50 AM CDT Therapy Visit [facility] [address] [place] [phone] [place] [address] [place] [address] 09/05/2023 10:40 AM CDT Therapy Visit [facility] [address] [place] [phone] [place] [address] [place] [address] 09/09/2023 10:10 AM CDT Therapy Visit [facility] [address] [place] [phone] [place] [address] [place] [address] 09/12/2023 10:40 AM CDT Therapy Visit [facility] [address] [place] [phone] Charlie Rincon, PT [facility] [address] [place] [address] 09/16/2023 10:30 AM CDT Therapy Visit [facility] [address] [place] [address] Charlie Rincon, PT [facility] [address] [place] [address] 09/19/2023 10:40 AM CDT Therapy Visit [facility] [address] [place] [address] Charlie Rincon, PT [facility] [address] [place] [address] 09/23/2023 10:30 AM CDT Therapy Visit [facility] [address] [place] [phone] Charlie Rincon, PT [facility] [address] [place] [address] 09/26/2023 10:40 AM CDT Therapy Visit [facility] [address] [place] [phone] Charlie Rincon, PT [facility] [address] [place] [address] 10/16/2023 9:15 AM CDT Virtual Visit [facility] [address] [phone] Cornine Moreno MD [address] [place] [address] documented as of this encounter Visit Diagnoses Not on filedocumented in this encounter Care Teams Textbook Associate Relationship Specialty Start Date End Date Clinic, [facility] [address] [place] [address] PCP - General 03/28/15 documented as of this encounter
--- OUTSIDE RECORDS SUMMARY | 2023-07-15 10:35 | XMS_ITS | Encounter Summary ---
Author Name Unknown Organization [facility] Address [address] [place] [address]. [place] [address] Care Team Providers Care Shop Router Name Role Phone Clinic, [facility] Primary Care Provider Encounter Details Date Type Department Care Team (Late st Contact Info) Description 12/06/2021 MyC Medical Advice [facility] [address] [place] [phone] Gi Timmons, [facility] [address] [place] [address] [address] [place] [address] Social History Tobacco Use Types Packs/Day Years [...] Description 08/05/2023 10:30 AM CDT Therapy Visit [facility] [place] [address] [place] [phone] Charlie Rincon, PT [facility] [address] [place] [address] 08/08/2023 10:40 AM CDT Therapy Visit [facility] [address] [place] [address] Charlie Rincon, PT [facility] [address] [place] [address] 08/12/2023 10:30 AM CDT Therapy Visit [facility] [address] [place] [phone] Charlie Rincon, PT [facility] [address] [place] [address] 08/15/2023 10:40 AM CDT Therapy Visit [address] [phone] [place] [address] [place] [address] [address] 08/19/2023 10:30 AM CDT Therapy Visit [address] [address] Charlie Rincon, PT [facility] [address] [place] [address] 08/22/2023 10:40 AM CDT Therapy Visit [facility] [address] [place] [phone] Charlie Rincon, PT [facility] [address] [place] [address] 08/26/2023 10:30 AM CDT Therapy Visit [address] [address] Charlie Rincon, PT [facility] [address] [place] [address] 08/28/2023 10:50 AM CDT Therapy Visit [facility] [address] [place] [address] Charlie Rincon, PT [facility] [address] [place] [address] 09/02/2023 10:50 AM CDT Therapy Visit [address] [address] [place] [address] [place] [address] 09/05/2023 10:40 AM CDT Therapy Visit [facility] [address] [place] [address] [place] [address] [place] [address] 09/09/2023 10:10 AM CDT Therapy Visit [address] [address] [place] [address] [place] [address] 09/12/2023 10:40 AM CDT Therapy Visit [address] [address] Charlie Rincon, PT [facility] [address] [place] [address] 09/16/2023 10:30 AM CDT Therapy Visit [address] [address] Charlie Rincon, PT [facility] [address] [place] [address] 09/19/2023 10:40 AM CDT Therapy Visit [facility] [address] [place] [phone] Charlie Rincon, PT [facility] [address] [place] [address] 09/23/2023 10:30 AM CDT Therapy Visit [address] [address] Charlie Rincon, PT [facility] [address] [place] [address] 09/26/2023 10:40 AM CDT Therapy Visit [facility] [address] [place] [phone] Charlie Rincon, PT [facility] [address] [place] [address] 10/16/2023 9:15 AM CDT Virtual Visit [facility] [address] [phone] Corinne Moreno MD [address] [place] [address] documented as of this encounter Visit Diagnoses Not on filedocumented in this encounter Care Teams Shop Router Relationship Specialty Start Date End Date [facility], [facility] [address] [place] [address] PCP - General 03/28/15 documented as of this encounter
--- OUTSIDE RECORDS SUMMARY | 2023-07-15 10:35 | XMS_ITS | Encounter Summary ---
Author Name Unknown Organization [place] Address [address] [place] [address]. [place] [address] Care Team Providers Care U.S. Revenue Officer Name Role Phone Clinic, [facility] Primary Care Provider Reason for Visit * Reason Comments Medication Refill Encounter Details Date Type Department Care Team (Late st Contact Info) Description 04/02/2022 Refill [facility] [address] [place] [phone] Corinne Moreno MD [address] [facility] [address] [place] [address] Medication Refill Social History Tobacco Use Types Packs/Day Years [...] encounter Miscellaneous Notes * Telephone Encounter - Sole Barroso RN - 04/02/2022 10:52 AM MEAT CUTTER APPRENTICE Called pt re: topiramate refill Is taking 3 tablets daily Has approx 2 weeks left Does not want to stop or run out WL is slow - sticking to the diet - says she was not perfect with her birthday, etc. Pt is seeing Tiffanie 04/25/22 Pharmacy: Omkar Barroso, RN on 04/02/2022 at 10:55 AM CUTTER APPRENTICE documented in this encounter Plan of Treatment Upcoming Encounters Date Type Department Care Team (Late st Contact Info) Description 08/05/2023 10:30 AM CDT Therapy Visit [address] [address] Charlie Rincon, PT [facility] [id number] [place] [address] 08/08/2023 10:40 AM CDT Therapy Visit [address] [phone] Charlie Rincon, PT [facility] [address] [place] [address] 08/12/2023 10:30 AM CDT Therapy Visit [address] [address] Charlie Rincon, PT [facility] [address] [place] [address] 08/15/2023 10:40 AM CDT Therapy Visit [address] [address] [place] [address] [place] [address] 08/19/2023 10:30 AM CDT Therapy Visit [address] [address] Charlie Rincon, PT [facility] [address] [place] [address] 08/22/2023 10:40 AM CDT Therapy Visit [facility] [address] [place] [phone] Charlie Rincon, PT [facility] [address] [place] [address] 08/26/2023 10:30 AM CDT Therapy Visit [address] [address] Charlie Rincon, PT [facility] [address] [place] [address] 08/28/2023 10:50 AM CDT Therapy Visit [facility] [address] [place] [phone] Charlie Rincon, PT [facility] [address] [place] [address] 09/02/2023 10:50 AM CDT Therapy Visit [address] [address] [place] [address] [place] [address] [place] [address] 09/05/2023 10:40 AM CDT Therapy Visit [address] [address] [place] [address] [place] [address] [place] [address] 09/09/2023 10:10 AM CDT Therapy Visit [address] [address] [place] [address] [place] [address] 09/12/2023 10:40 AM CDT Therapy Visit [facility] [address] [place] [phone] Charlie Rincon, PT [facility] [address] [place] [address] 09/16/2023 10:30 AM CDT Therapy Visit [address] [phone] Charlie Rincon, PT [facility] [address] [place] [address]89 09/19/2023 10:40 AM CDT Therapy Visit [facility] [address] [place] [phone] Charlie Rincon, PT [facility] [address] [place] [address] 09/23/2023 10:30 AM CDT Therapy Visit [address] [address] Charlie Rincon, PT [facility] [address] [place] [address]367 09/26/2023 10:40 AM CDT Therapy Visit [address] [phone] Charlie Rincon, PT [facility] [address] [place] [address]44 10/16/2023 9:15 AM CDT Virtual Visit [facility] [address] [phone] Corinne Moreno MD [address]45 [facility] 200 [place] [address] documented as of this encounter Visit Diagnoses Diagnosis Class 1 obesity due to excess calories with serious comorbidity and body mass index (BMI) of 33.0 to 33.9 in adult documented in this encounter Care Teams U.S. Revenue Officer Relationship Specialty Start Date End Date [facility], [address] [address] PCP - General 03/28/15 documented as of this encounter
--- OUTSIDE RECORDS SUMMARY | 2023-07-15 10:35 | XMS_ITS | Encounter Summary ---
Author Name Unknown Organization [place] Address [address] [place] [address]. [place] [address] Care Team Providers Care School Principal Name Role Phone Clinic, [facility] Primary Care Provider Encounter Details Date Type Department Care Team (Late st Contact Info) Description 12/20/2021 MyC Medical Advice [facility] [address] [place] [phone] Gi Timmons, [facility] [address] [place] [address] [address] [place] [address] Social History Tobacco Use Types Packs/Day Years [...] Description 08/05/2023 10:30 AM CDT Therapy Visit [facility] [place] [address] [place] [phone] Charlie Rincon, PT [facility] [id number] [place] [address] 08/08/2023 10:40 AM CDT Therapy Visit [facility] [address] [place] [address] Charlie Rincon, PT [facility] [address] [place] [address] 08/12/2023 10:30 AM CDT Therapy Visit [facility] [address] [place] [phone] Charlie Rincon, PT [facility] [address] [place] [address] 11952 08/15/2023 10:40 AM CDT Therapy Visit [address] [address] [place] [address] [place] [address] [address] 08/19/2023 10:30 AM CDT Therapy Visit [address] [address] Charlie Rincon, PT [facility] [address] [place] [address] 08/22/2023 10:40 AM CDT Therapy Visit [facility] [address] [place] [phone] Charlie Rincon, PT [facility] [address] [place] [address] 08/26/2023 10:30 AM CDT Therapy Visit [address] [address] Charlie Rincon, PT [facility] [address] [place] [address] 08/28/2023 10:50 AM CDT Therapy Visit [facility] [address] [place] [address] Charlie Rincon, PT [facility] [address] [place] [address] 09/02/2023 10:50 AM CDT Therapy Visit [address] [address] [place] [address] [place] [address] [place] [address] 09/05/2023 10:40 AM CDT Therapy Visit [facility] [address] [place] [phone] [place] [address] [place] [address] [place] [address] 09/09/2023 10:10 AM CDT Therapy Visit [address] [address] [place] [address] [place] [address] [place] [address] 09/12/2023 10:40 AM CDT Therapy Visit [address] [address] Charlie Rincon, PT [facility] [address] [place] [address] 09/16/2023 10:30 AM CDT Therapy Visit [address] [address] Charlie Rincon, PT [facility] [address] [place] [address] 09/19/2023 10:40 AM CDT Therapy Visit [facility] [address] [place] [phone] Charlie Rincon, PT [facility] [address] [place] [address]226 09/23/2023 10:30 AM CDT Therapy Visit [address] [address] Charlie Rincon, PT [facility] [address] [place] [address] 09/26/2023 10:40 AM CDT Therapy Visit [facility] [address] [place] [phone] Charlie Rincon, PT [facility] [address] [place] [address] 71342 10/16/2023 9:15 AM CDT Virtual Visit [facility] [address] [phone] Corinne Moreno MD [address] [place] [address] documented as of this encounter Visit Diagnoses Not on filedocumented in this encounter Care Teams School Principal Relationship Specialty Start Date End Date [facility], [facility] [address] [place] [address] PCP - General 03/28/15 documented as of this encounter
--- OUTSIDE RECORDS SUMMARY | 2023-07-15 10:35 | XMS_ITS | Encounter Summary ---
Author Name Unknown Organization [place] Address [address] [place] [address]. [place] [address] Care Team Providers Care General Superintendent Name Role Phone Clinic, [facility] Primary Care Provider Encounter Details Date Type Department Care Team (Late st Contact Info) Description 04/23/2023 MyC Medical Advice [facility] [place] [address] [facility] [address] [place] [phone] [place] [address] [place] [address] [address] [place], [place] [id number] Social History Tobacco Use Types Packs/Day Years [...] 08/05/2023 10:30 AM CDT Therapy Visit [facility] [address] [place] [phone] Charlie Rincon, PT [facility] [address] [place] [address] 08/08/2023 10:40 AM CDT Therapy Visit [facility] [address] [place] [phone] Charlie Rincon, PT [facility] [address] [place] [address] 08/12/2023 10:30 AM CDT Therapy Visit [facility] [address] [place] [phone] Charlie Rincon, PT [facility] [address] [place] [address] 08/15/2023 10:40 AM CDT Therapy Visit [address] [address] [place] [address] [address] 08/19/2023 10:30 AM CDT Therapy Visit [facility] [address] [place] [phone] hCarlie Rincon, PT [facility] [address] [place] [address] 08/22/2023 10:40 AM CDT Therapy Visit [facility] [address] [place] [phone] Charlie Rincon, PT [facility] [address] [place] [address]163 08/26/2023 10:30 AM CDT Therapy Visit [address] [place] [address] Charlie Rincon, PT [facility] [address] [place] [address]3827 08/28/2023 10:50 AM CDT Therapy Visit [address] [address] Charlie Rincon, PT [facility] [address] [place] [address]99 09/02/2023 10:50 AM CDT Therapy Visit [address] [address] [place] [address] [place] [address] [place] [address] 09/05/2023 10:40 AM CDT Therapy Visit [address] [address] [place] [address] [place] [address] [place] [address] 09/09/2023 10:10 AM CDT Therapy Visit [address] [address] [place] [address] [place] [address] [place] [address] 09/12/2023 10:40 AM CDT Therapy Visit [address] [address] Charlie Rincon, PT [facility] [address] [place] [address] 09/16/2023 10:30 AM CDT Therapy Visit [facility] [address] [place] [address] Charlie Rincon, PT [facility] [address] [place] [address] 09/19/2023 10:40 AM CDT Therapy Visit [facility] [address] [place] [phone] Charlie Rincon, PT [facility] [address] [place] [address] 09/23/2023 10:30 AM CDT Therapy Visit [facility] [address] [place] [address] Charlie Rincon, PT [facility] [address] [place] [address] 09/26/2023 10:40 AM CDT Therapy Visit [facility] [address] [place] [phone] Charlie Rincon, PT [facility] [address] [place] [address] 10/16/2023 9:15 AM CDT Virtual Visit [facility] [address] [phone] Corinne Moreno MD [address] [place] [address] 200 [place] [address] documented as of this encounter Visit Diagnoses Not on filedocumented in this encounter Care Teams General Superintendent Relationship Specialty Start Date End Date Clinic, [facility] [address] [place] [address] PCP - General 03/28/15 documented as of this encounter
--- OUTSIDE RECORDS SUMMARY | 2023-07-15 10:35 | XMS_ITS | Encounter Summary ---
Author Name Unknown Organization [place] Address [address] [place] [address]. [place] [address] Care Team Providers Care Investment Professional Name Role Phone Clinic, [facility] Primary Care Provider Encounter Details Date Type Department Care Team (Late st Contact Info) Description 12/29/2021 MyC Medical Advice [facility] [address] [place] [phone] Tuyet Watts, SALMA Social History Tobacco Use Types Packs/Day Years [...] Description 08/05/2023 10:30 AM CDT Therapy Visit [facility] [place] [address] [place] [phone] Charlie Rincon, PT [facility] [address] [place], [place] [phone] 08/08/2023 10:40 AM CDT Therapy Visit [facility] [address] [place] [phone] Charlie Rincon, PT [facility] [address] [place] [address] 08/12/2023 10:30 AM CDT Therapy Visit [facility] [address] [place] [phone] Charlie Rincon, PT [facility] [address] [place] [address] 15060 08/15/2023 10:40 AM CDT Therapy Visit [address] [address] [place] [address] [place] [address] 08/19/2023 10:30 AM CDT Therapy Visit [address] [address] Charlie Rincon, PT [facility] [address] [place] [address] 32590 08/22/2023 10:40 AM CDT Therapy Visit [facility] [address] [place] [phone] Charlie Rincon, PT [facility] [address] [place] [address] 09397 08/26/2023 10:30 AM CDT Therapy Visit [address] [phone] Charlie Rincon, PT [facility] [address] [place] [address] 35530 08/28/2023 10:50 AM CDT Therapy Visit [facility] [address] [place] [phone] Charlie Rincon, PT [facility] [address] [place] [address] 80809 09/02/2023 10:50 AM CDT Therapy Visit [address] [phone] [place] [address] [place] [address] [place] [address] 09/05/2023 10:40 AM CDT Therapy Visit [address] [address] [place] [address] [place] [address] [place] [address] 09/09/2023 10:10 AM CDT Therapy Visit [address] [address] [place] [address] [place] [address] [place] [address] 09/12/2023 10:40 AM CDT Therapy Visit [facility] [address] [place] [phone] Charlie Rincon, PT [facility] [address] [place] [address] 09/16/2023 10:30 AM CDT Therapy Visit [address] [address] Charlie Rincon, PT [facility] [address] [place] [address] 96547 09/19/2023 10:40 AM CDT Therapy Visit [facility] [address] [place] [address] Charlie Ricnon, PT [facility] [address] [place] [address] 09/23/2023 10:30 AM CDT Therapy Visit [facility] [address] [place] [phone] Charlie Rincon, PT [facility] [address] [place] [address] 39357 09/26/2023 10:40 AM CDT Therapy Visit [facility] [address] [place] [phone] Charlie Rincon, PT [facility] [address] [place] [address] 62517 10/16/2023 9:15 AM CDT Virtual Visit [facility] [address] [phone] Corinne Moreno MD [address] [place] [address] documented as of this encounter Visit Diagnoses Not on filedocumented in this encounter Care Teams Investment Professional Relationship Specialty Start Date End Date Clinic, [facility] [address] [place] [address] PCP - General 03/28/15 documented as of this encounter
--- OUTSIDE RECORDS SUMMARY | 2023-07-15 10:35 | XMS_ITS | Encounter Summary ---
Author Name Unknown Organization [place] Address [address] [place] [address]. [place] [address] Care Team Providers Care Sports Reporter Name Role Phone Clinic, [facility] Primary Care Provider Encounter Details Date Type Department Care Team (Late st Contact Info) Description 12/29/2021 MyC Medical Advice Initial Department [facility] Social History Tobacco Use Types Packs/Day Years [...] Encounters Date Type Department Care Team (Late Contact Info) Description 08/05/2023 10:30 AM CDT Therapy [facility] [address] [place] [phone] Charlie Rincon, PT [facility] [address] [place] [address] 08/08/2023 10:40 AM CDT Therapy Visit [facility] [address] [place] [phone] Charlie Rincno, PT [facility] [address] [place] [address] 08/12/2023 10:30 AM CDT Therapy Visit [facility] [address] [place] [phone] Charlie Rincon, PT [facility] [address] [place] [address] 21495 08/15/2023 10:40 AM CDT Therapy Visit [facility] [address] [place] [phone] [place] [address] [place] [address] 08/19/2023 10:30 AM CDT Therapy Visit [facility] [address] [place] [phone] Charlie Rincon, PT [facility] [address] [place] [address] 13650 08/22/2023 10:40 AM CDT Therapy Visit [facility] [address] [place] [phone] Charlie Rincon, PT [facility] [address] [place] [address] 38851 08/26/2023 10:30 AM CDT Therapy Visit [facility] [address] [place] [phone] Charlie Rincon, PT [facility] [address] [place] [address] 15894 08/28/2023 10:50 AM CDT Therapy Visit [facility] [address] [place] [phone] Charlie Rincon, PT [facility] [address] [place] [address] 23355 09/02/2023 10:50 AM CDT Therapy Visit [facility] [address] [place] [phone] [place] [address] [place] [address] [place] [address] 09/05/2023 10:40 AM CDT Therapy Visit [facility] [address] [place] [phone] [place] [address] [place] [address] [place] [address] 09/09/2023 10:10 AM CDT Therapy Visit [facility] [address] [place] [phone] [place] [address] [place] [address] [place] [address] 09/12/2023 10:40 AM CDT Therapy Visit [facility] [address] [place] [phone] Charlie Rincon, PT [facility] [address] [place] [address] 18415 09/16/2023 10:30 AM CDT Therapy Visit [facility] [address] [place] [phone] Charlie Rincon, PT [facility] [address] [place] [address] 97113 09/19/2023 10:40 AM CDT Therapy Visit [address] [place] [address] Charlie Rincon, PT [facility] [address] [place] [address] 40106 09/23/2023 10:30 AM CDT Therapy Visit [facility] [address] [place] [phone] Charlie Rincon, PT [facility] [address] [place] [address] 37111 09/26/2023 10:40 AM CDT Therapy Visit [facility] [address] [place] [phone] Charlie Rincon, PT [facility] [address] [place] [address] 69[address] 10/16/2023 9:15 AM CDT Virtual Visit [facility] [address] [phone] Corinne Moreno MD [address] [place] [address] documented as of this encounter Visit Diagnoses Not on filedocumented in this encounter Care Teams Sports Reporter Relationship Specialty Start Date End Date Clinic, [facility] [address] [place] [address] PCP - General 03/28/15 documented as of this encounter
--- OUTSIDE RECORDS SUMMARY | 2023-07-15 10:35 | XMS_ITS | Encounter Summary ---
Author Name Unknown Organization [place] Address [address] [place] [address]. [place] [address] Care Team Providers Care Drafting Instructor Name Role Phone Clinic, [facility] Primary Care Provider Encounter Details Date Type Department Care Team (Late st Contact Info) Description 01/11/2022 MyC Medical Advice [facility] Weight Loss Clinic [address] [place] [phone] Corinne Moreno MD [address] [facility] [address] [place], [place] [id number] Social History Tobacco Use Types Packs/Day Years [...] Description 08/05/2023 10:30 AM CDT Therapy Visit [facility] Rehabilitation Services [place] [address] [place] [phone] Charlie Rincon, PT [facility] [address] [place] [address] 08/08/2023 10:40 AM CDT Therapy Visit [facility] [address] [place] [phone] Charlie Rincon, PT [facility] [address] [place] [address] 08/12/2023 10:30 AM CDT Therapy Visit [address] [phone] Charlie Rincon, PT [facility] [address] [place] [address] 08/15/2023 10:40 AM CDT Therapy Visit [address] [phone] [place] [address] [address] 08/19/2023 10:30 AM CDT Therapy Visit [address] [address] Charlie Rincon, PT [facility] [address] [place] [address] 08/22/2023 10:40 AM CDT Therapy Visit [address] [address] Charlie Rincon, PT [facility] [address] [place] [address] 08/26/2023 10:30 AM CDT Therapy Visit [address] [address] Charlie Rincon, PT [facility] [address] [place] [address] 08/28/2023 10:50 AM CDT Therapy Visit [facility] [address] [place] [phone] Charlie Rincon, PT [facility] [address] [place] [address] 09/02/2023 10:50 AM CDT Therapy Visit [address] [address] [place] [address] [place] [address] 09/05/2023 10:40 AM CDT Therapy Visit [facility] [address] [place] [phone] [place] [address] [place] [address] 09/09/2023 10:10 AM CDT Therapy Visit [address] [address] [place] [address] [place] [address] 09/12/2023 10:40 AM CDT Therapy Visit [address] [address] Charlie Rincon, PT [facility] [address] [place] [address] 09/16/2023 10:30 AM CDT Therapy Visit [address] [address] Charlie Rincon, PT [facility] [address] [place] [address] 09/19/2023 10:40 AM CDT Therapy Visit [facility] [address] [place] [phone] Charlie Rincon, PT [facility] [address] [place] [address] 09/23/2023 10:30 AM CDT Therapy Visit [facility] [address] [place] [phone] Charlie Rincon, PT [facility] [address] [place] [address] 09/26/2023 10:40 AM CDT Therapy Visit [facility] [address] [place] [address] Charlie Rincon, PT [facility] [address] [place] [address] 10/16/2023 9:15 AM CDT Virtual Visit [facility] [address] [phone] Corinne Moreno MD [address] [place] [address] [address] [place] [address] documented as of this encounter Visit Diagnoses Not on filedocumented in this encounter Care Teams Drafting Instructor Relationship Specialty Start Date End Date [facility], [facility] [address] [place] [address] PCP - General 03/28/15 documented as of this encounter
--- OUTSIDE RECORDS SUMMARY | 2023-07-15 10:35 | XMS_ITS | Encounter Summary ---
Author Name Unknown Organization [place] Address [address] [place] [address]. [place] [address] Care Team Providers Care Automotive Internet Sales Manager Name Role Phone Clinic, [facility] [place] [facility] Primary Care Provider Encounter Details Date Type Department Care Team (Late st Contact Info) Description 01/03/2022 MyC Medical Advice [facility] Surgical Weight Loss Clinic [address] [place] [phone] Gi Timmons, [facility] [address] [place] [address] [address] [place] [address] Social History Tobacco Use Types Packs/Day Years [...] AM CDT Therapy Visit [facility] Rehabilitation Services [place] [address] [place] [phone] Charlie Rincon, PT [facility] [address] [place] [address] 08/08/2023 10:40 AM CDT Therapy Visit [facility] [address] [place] [address] Charlie Rincon, PT [facility] [address] [place] [address] 08/12/2023 10:30 AM CDT Therapy Visit [facility] [address] [place] [phone] Charlie Rincon, PT [facility] [address] [place] [address] 95[address] 08/15/2023 10:40 AM CDT Therapy Visit [address] [address] [place] [address] [address] 08/19/2023 10:30 AM CDT Therapy Visit [address] [address] Charlie Rincon, PT [facility] [address] [place] [address] 08/22/2023 10:40 AM CDT Therapy Visit [facility] [address] [place] [phone] Charlie Rincon, PT [facility] [address] [place] [address] 08/26/2023 10:30 AM CDT Therapy Visit [address] [address] Charlie Rincon, PT [facility] [address] [place] [address] 08/28/2023 10:50 AM CDT Therapy Visit [facility] [address] [place] [address] Charlie Rincon, PT [facility] [address] [place] [address] 09/02/2023 10:50 AM CDT Therapy Visit [address] [address] [place] [address] [place] [address] 09/05/2023 10:40 AM CDT Therapy Visit [facility] [address] [place] [phone] [place] [address] [place] [address] 09/09/2023 10:10 AM CDT Therapy Visit [address] [address] [place] [address] [place] [address] 09/12/2023 10:40 AM CDT Therapy Visit [address] [address] Charlie Rincon, PT [facility] [address] [place] [address] 09/16/2023 10:30 AM CDT Therapy Visit [address] [address] Charlie Rincon, PT [facility] [address] [place] [address] 09/19/2023 10:40 AM CDT Therapy Visit [facility] [address] [place] [phone] Charlie Rincon, PT [facility] [address] [place] [address] 09/23/2023 10:30 AM CDT Therapy Visit [address] [address] Charlie Rincon, PT [facility] [address] [place] [address] 09/26/2023 10:40 AM CDT Therapy Visit [facility] [address] [place] [address] Charlie Rincon, PT [facility] [address] [place] [address] 10/16/2023 9:15 AM CDT Virtual Visit [facility] Surgery [facility] [address] [phone] Corinne Moreno MD [address] [place] [address] documented as of this encounter Visit Diagnoses Not on filedocumented in this encounter Care Teams Automotive Internet Sales Manager Relationship Specialty Start Date End Date [facility], [facility] [address] [place] [address] PCP - General 03/28/15 documented as of this encounter
--- OUTSIDE RECORDS SUMMARY | 2023-07-15 10:35 | XMS_ITS | Encounter Summary ---
Author Name Unknown Organization [place] Address [address] [place] [address]. [place] [address] Care Team Providers Care Supervisor Whipped Topping Name Role Phone Clinic, [facility] Primary Care Provider Encounter Details Date Type Department Care Team (Late st Contact Info) Description 01/03/2022 MyC Medical Advice [facility] Surgical Weight Loss Clinic [address] [place] [phone] Gi Timmons, [facility] [address] [place] [address] [address] [place] [address] Social History Tobacco Use Types Packs/Day Years [...] Description 08/05/2023 10:30 AM CDT Therapy Visit [facility] Rehabilitation Services [place] [address] [place] [phone] Charlie Rincon, PT [facility] [address] [place] [address] 08/08/2023 10:40 AM CDT Therapy Visit [facility] [address] [place] [address] Charlie Rincon, PT [facility] [address] [place] [address] 08/12/2023 10:30 AM CDT Therapy Visit [facility] [address] [place] [phone] Charlie Rincon, PT [facility] [address] [place] [address] 388[address] 08/15/2023 10:40 AM CDT Therapy Visit [address] [address] [place] [address] [address] 08/19/2023 10:30 AM CDT Therapy Visit [address] [address]37[address] Charlie Rincon, PT [facility] [address] [place] [address] 08/22/2023 10:40 AM CDT Therapy Visit [facility] [address] [place] [phone] Charlie Rincon, PT [facility] [address] [place] [address] 28063 08/26/2023 10:30 AM CDT Therapy Visit [address] [address]851[address] Charlie Rincon, PT [facility] [address] [place] [address] 08/28/2023 10:50 AM CDT Therapy Visit [facility] [address] [place] [address] Charlie Rincon, PT [facility] [address] [place] [address] 09/02/2023 10:50 AM CDT Therapy Visit [address] [address] [place] [address] [place] [address] 09/05/2023 10:40 AM CDT Therapy Visit [facility] [address] [place] [phone] [place] [address] [place] [address] 09/09/2023 10:10 AM CDT Therapy Visit [address] [address] [place] [address] [place] [address] 09/12/2023 10:40 AM CDT Therapy Visit [address] [address] Charlie Rincon, PT [facility] [address] [place] [address] 09/16/2023 10:30 AM CDT Therapy Visit [address] [address] Charlie Rincon, PT [facility] [address] [place] [address] 09/19/2023 10:40 AM CDT Therapy Visit [facility] [address] [place] [address] Charlie Rincon, PT [facility] [address] [place] [address]85 09/23/2023 10:30 AM CDT Therapy Visit [address] [address] Charlie Rincon, PT [facility] [address] [place] [address] 09/26/2023 10:40 AM CDT Therapy Visit [facility] [address] [place] [address] Charlie Rincon, PT [facility] [address] [place] [address] 10/16/2023 9:15 AM CDT Virtual Visit [facility] Surgery [facility] [address] [address] Corinne Moreno MD [address] [place] [address] documented as of this encounter Visit Diagnoses Not on filedocumented in this encounter Care Teams Supervisor Whipped Topping Relationship Specialty Start Date End Date [facility], [facility] [address] [place] [address] PCP - General 03/28/15 documented as of this encounter
--- OUTSIDE RECORDS SUMMARY | 2023-07-15 10:35 | XMS_ITS | Encounter Summary ---
Author Name Unknown Organization [place] Address [address] [place] [address]. [place] [address] Care Team Providers Care Talent Buyer Name Role Phone Clinic, [facility] Primary Care Provider Encounter Details Date Type Department Care Team (Late st Contact Info) Description 04/20/[address] [facility] Weight Management Clinic [address], [address] [place] [address] Drake Yeager, SALMA Social History Tobacco Use Types Packs/Day [...] Description 08/05/2023 10:30 AM CDT Therapy Visit [facility] Rehabilitation Services [place] [address] [place] [phone] Charlie Rincon, PT [facility] [address] [place] [address] 08/08/2023 10:40 AM CDT Therapy Visit [facility] [address] [place] [address] Charlie Rincon, PT [facility] [address] [place] [address] 08/12/2023 10:30 AM CDT Therapy Visit [facility] [address] [place] [address] Charlie Rincon, PT [facility] [address] [place] [address] 08/15/2023 10:40 AM CDT Therapy Visit [address] [address] [place] [address] [place] [address] 08/19/2023 10:30 AM CDT Therapy Visit [facility] [address] [place] [phone] Charlie Rincon, PT [facility] [address] [place] [address] 08/22/2023 10:40 AM CDT Therapy Visit [facility] [address] [place] [phone] Charlie Rincon, PT [facility] [address] [place] [address] 08/26/2023 10:30 AM CDT Therapy Visit [address] [address] Charlie Rincon, PT [facility] [address] [place] [address] 08/28/2023 10:50 AM CDT Therapy Visit [facility] [address] [place] [phone] Charlie Rincon, PT [facility] [address] [place] [address]69 09/02/2023 10:50 AM CDT Therapy Visit [facility] [address] [place] [phone] [place] [address] [place] [address] 09/05/2023 10:40 AM CDT Therapy Visit [address] [phone] [place] [address] [place] [address] 09/09/2023 10:10 AM CDT Therapy Visit [facility] [address] [place] [address] 58[address] [place] [address] [place] [address] 09/12/2023 10:40 AM CDT Therapy Visit [facility] [address] [place] [address] Charlie Rincon, PT [facility] [address] [place] [address]17 09/16/2023 10:30 AM CDT Therapy Visit [facility] [address] [place] [address] Charlie Rincon, PT [facility] [address] [place] [address] 09/19/2023 10:40 AM CDT Therapy Visit [facility] [address] [place] [address] Charlie Rincon, PT [facility] [address] [place] [address] 09/23/2023 10:30 AM CDT Therapy Visit [facility] [address] [place] [address] Charlie Rincon, PT [facility] [address] [place] [address] 09/26/2023 10:40 AM CDT Therapy Visit [facility] [address] [place] [address] Charlie Rincon, PT [facility] [address] [place] [address] 10/16/2023 9:15 AM CDT Virtual Visit [facility] [address] [phone] [place] [address] [place] [address] documented as of this encounter Visit Diagnoses Not on filedocumented in this encounter Care Teams Talent Buyer Relationship Specialty Start Date End Date Clinic, [facility] [address] [place] [address] PCP - General 03/28/15 documented as of this encounter
--- OUTSIDE RECORDS SUMMARY | 2023-07-15 10:35 | XMS_ITS | Encounter Summary ---
Author Name Unknown Organization [place] Address [address] [place] [address]. [place] [address] Care Team Providers Care Equipment Coordinator Name Role Phone Clinic, [facility] Primary Care Provider Encounter Details Date Type Department Care Team (Late st Contact Info) Description 12/20/[address] [facility] Surgical Weight Loss Clinic [address] [place] [phone] Corinne Moreno MD [address] [facility] [address] [place], [place] [id number] Social History Tobacco Use Types Packs/Day Years [...] 08/05/2023 10:30 AM CDT Therapy Visit [facility] Rehabilitation Services [place] [address] [place] [phone] Charlie Rincon, PT [facility] [address] [place] [address] 08/08/2023 10:40 AM CDT Therapy Visit [facility] [address] [place] [phone] Charlie Rincon, PT [facility] [address] [place] [address] 08/12/2023 10:30 AM CDT Therapy Visit [address] 36568-[address]68 Charlie Rincon, PT [facility] [address] [place] [address]60 08/15/2023 10:40 AM CDT Therapy Visit [address] [address]5810[address] [place] [address] [address] [address] 08/19/2023 10:30 AM CDT Therapy Visit [address] [phone] Charlie Rincon, PT [facility] [address] [place] [address] 307[address] 08/22/2023 10:40 AM CDT Therapy Visit [address] [address]20[address] Charlie Rincon, PT [facility] [address] [place] [address] 57[address] 08/26/2023 10:30 AM CDT Therapy Visit [address] [address] Charlie Rincon, PT [facility] [address] [place] [address] 08/28/2023 10:50 AM CDT Therapy Visit [facility] [address] [place] [address] Charlie Rincon, PT [facility] [address] [place] [address] 36084 09/02/2023 10:50 AM CDT Therapy Visit [address] [address] [place] [address] [place] [address] 09/05/2023 10:40 AM CDT Therapy Visit [facility] [address] [place] [address] [place] [address] [place] [address] 09/09/2023 10:10 AM CDT Therapy Visit [address] [address] [place] [address] [place] [address] 09/12/2023 10:40 AM CDT Therapy Visit [address] [address] Charlie Rincon, PT [facility] [address] [place] [address]32 09/16/2023 10:30 AM CDT Therapy Visit [address] [address] Charlie Rincon, PT [facility] [address] [place] [address] 09/19/2023 10:40 AM CDT Therapy Visit [facility] [address] [place] [phone] Charlie Rincon, PT [facility] [address] [place] [address] 09/23/2023 10:30 AM CDT Therapy Visit [facility] [address] [place] [address] Charlie Rincon, PT [facility] [address] [place] [address]60 09/26/2023 10:40 AM CDT Therapy Visit [facility] [address] [place] [address] Charlie Rincon, PT [facility] [address] [place] [address]28 10/16/2023 9:15 AM CDT Virtual Visit [facility] [address] [phone] Corinne Moreno MD [address] [place] [address] [address] [place] [address] documented as of this encounter Visit Diagnoses Not on filedocumented in this encounter Care Teams Equipment Coordinator Relationship Specialty Start Date End Date [facility], [facility] [address] [place] [address] PCP - General 03/28/15 documented as of this encounter
--- OUTSIDE RECORDS SUMMARY | 2023-07-15 10:36 | XMS_ITS | Encounter Summary ---
Author Name Unknown Organization [place] Address [address] [place] [address]. [place] [address] Care Team Providers Care Translator And Interpreter Name Role Phone Clinic, [facility] Primary Care Provider Encounter Details Date Type Department Care Team (Late st Contact Info) Description 11/13/2021 MyC Medical Advice [facility] [address] [place] [phone] [facility] Social History Tobacco Use Types Packs/Day Years [...] [facility] Rehabilitation [facility] [place] [address] [place] [phone] Charlie Rincon, PT [facility] [address] [place] [address] 08/08/2023 10:40 AM CDT Therapy Visit [facility] [address] [place] [phone] Charlie Rincon, PT [facility] [address] [place] [address] 08/12/2023 10:30 AM CDT Therapy Visit [address] [phone] Charlie Rincon, PT [facility] [address] [place] [address] 08/15/2023 10:40 AM CDT Therapy Visit [address] [phone] [place] [address] [place] [address] 08/19/2023 10:30 AM CDT Therapy Visit [address] [phone] Charlie Rincon, PT [facility] [address] [place] [address] 08/22/2023 10:40 AM CDT Therapy Visit [address] [address] Charlie Rincon, PT [facility] [address] [place] [address] 08/26/2023 10:30 AM CDT Therapy Visit [address] [phone] Charlie Rincon, PT [facility] [address] [place] [address] 08/28/2023 10:50 AM CDT Therapy Visit [facility] [address] [place] [phone] Charlie Rincon, PT [facility] [address] [place] [address] 09/02/2023 10:50 AM CDT Therapy Visit [address] [address] [place] [address] [place] [address] 09/05/2023 10:40 AM CDT Therapy Visit [address] [address] [place] [address] [place] [address] 09/09/2023 10:10 AM CDT Therapy Visit [address] [address] [place] [address] [place] [address] 09/12/2023 10:40 AM CDT Therapy Visit [address] [address] Charlie Rincon, PT [facility] [address] [place] [address] 09/16/2023 10:30 AM CDT Therapy Visit [address] [address] Charlie Rnicon, PT [facility] [address] [place] [address] 09/19/2023 10:40 AM CDT Therapy Visit [facility] [address] [place] [phone] Charlie Rincon, PT [facility] [address] [place] [address] 09/23/2023 10:30 AM CDT Therapy Visit [facility] [address] [place] [phone] Charlie Rincon, PT [facility] [address] [place] [address] 09/26/2023 10:40 AM CDT Therapy Visit [address] [address] Charlie Rincon, PT [facility] [address] [place] [address] 10/16/2023 9:15 AM CDT Virtual Visit [facility] [address] [phone] Corinne Moreno MD [address] [place] [address] documented as of this encounter Visit Diagnoses Not on filedocumented in this encounter Care Teams Translator And Interpreter Relationship Specialty Start Date End Date Clinic, [facility] [address] [place] [address] PCP - General 03/28/15 documented as of this encounter
--- OUTSIDE RECORDS SUMMARY | 2023-07-15 10:36 | XMS_ITS | Encounter Summary ---
Author Name Unknown Organization [place] Address [address] [place] [address]. [place] [address] Care Team Providers Care Leading Firefighter Name Role Phone Clinic, [facility] Primary Care Provider Encounter Details Date Type Department Care Team (Late st Contact Info) Description 11/14/2021 MyC Medical Advice [facility] Weight Loss Clinic [address] [place] [phone] Angela Warren Social History Tobacco Use Types Packs/Day Years [...] Description 08/05/2023 10:30 AM CDT Therapy Visit [facility] Rehabilitation Services [place] [address] [place] [phone] Charlie Rincon, PT [facility] [address] [place], [place] 5[address] 08/08/2023 10:40 AM CDT Therapy Visit [facility] [address] [place] [phone] Charlie Rincon, PT [facility] [address] [place] [address] 08/12/2023 10:30 AM CDT Therapy Visit [address] 28[address] Charlie Rincon, PT [facility] [address] [place] [address] 08/15/2023 10:40 AM CDT Therapy Visit [address] [address] [place] [address] [place] [address] 08/19/2023 10:30 AM CDT Therapy Visit [address] [address] Charlie Rincon, PT [facility] [address] [place] [address] 08/22/2023 10:40 AM CDT Therapy Visit [address] [address] Charlie Rincon, PT [facility] [address] [place] [address] 08/26/2023 10:30 AM CDT Therapy Visit [address] [phone] Charlie Rincon, PT [facility] [address] [place] [address] 08/28/2023 10:50 AM CDT Therapy Visit [facility] [address] [place] [phone] Charlie Rincon, PT [facility] [address] [place] [address] 09/02/2023 10:50 AM CDT Therapy Visit [address] [address] [place] [address] [place] [address] 09/05/2023 10:40 AM CDT Therapy Visit [address] [address] [place] [address] [place] [address] 09/09/2023 10:10 AM CDT Therapy Visit [address] [address] [place] [address] [place] [address] 09/12/2023 10:40 AM CDT Therapy Visit [address] [address] Charlie Rincon, PT [facility] [address] [place] [address] 09/16/2023 10:30 AM CDT Therapy Visit [address] [address] Charlie Rincon, PT [facility] [address] [place] [address] 09/19/2023 10:40 AM CDT Therapy Visit [facility] [address] [place] [address] Charlie Rincon, PT [facility] [address] [place] [address] 09/23/2023 10:30 AM CDT Therapy Visit [facility] [address] [place] [phone] Charlie Rincon, PT [facility] [address] [place] [address] 09/26/2023 10:40 AM CDT Therapy Visit [address] [address] Charlie Rincon, PT [facility] [address] [place] [address] 10/16/2023 9:15 AM CDT Virtual Visit [facility] [address] 572[address] [place] [address] [place] [address] 200 [place] [address] documented as of this encounter Visit Diagnoses Not on filedocumented in this encounter Care Teams Leading Firefighter Relationship Specialty Start Date End Date [facility], [facility] [address] [place] [address] PCP - General 03/28/15 documented as of this encounter
--- OUTSIDE RECORDS SUMMARY | 2023-07-15 10:36 | XMS_ITS | Encounter Summary ---
Author Name Unknown Organization [place] Address [address] [place] [address]. [place] [address] Care Team Providers Care Linotype Operator Name Role Phone Clinic, [facility] Primary Care Provider Encounter Details Date Type Department Care Team (Late st Contact Info) Description 10/09/2021 MyC Medical Advice [facility] Surgical Weight Loss Clinic [address] [place] [phone] [facility] Social History Tobacco Use Types Packs/Day Years [...] 08/05/2023 10:30 AM CDT Therapy Visit [facility] Rehabilitation [facility] [place] [address] [place] [phone] Charlie Rincon, PT [facility] [address] [place] [address] 08/08/2023 10:40 AM CDT Therapy Visit [facility] [address] [place] [phone] Charlie Rincon, PT [facility] [address] [place] [address] 08/12/2023 10:30 AM CDT Therapy Visit [address] [address] Charlie Rincon, PT [facility] [address] [place] [address] 08/15/2023 10:40 AM CDT Therapy Visit [address] [address] [place] [address] [place] [address] 08/19/2023 10:30 AM CDT Therapy Visit [address] [phone] Charlie Rincon, PT [facility] [address] [place] [address] 08/22/2023 10:40 AM CDT Therapy Visit [address] [address] Charlie Rincon, PT [facility] [address] [place] [address] 08/26/2023 10:30 AM CDT Therapy Visit [address] 17370[address] Charlie Rincon, PT [facility] [address] [place] [address] 08/28/2023 10:50 AM CDT Therapy Visit [facility] [address] [place] [address] [phone] Charlie Rincon, PT [facility] [address] [place] [address] 09/02/2023 10:50 AM CDT Therapy Visit [address] [address] [place] [address] [place] [address] 09/05/2023 10:40 AM CDT Therapy Visit [address] [address] [place] [address] [place] [address] 09/09/2023 10:10 AM CDT Therapy Visit [address] [address] [place] [address] [place] [address] 09/12/2023 10:40 AM CDT Therapy Visit [address] [address] Charlie Rincon, PT [facility] [address] [place] [address] 09/16/2023 10:30 AM CDT Therapy Visit [address] [address] Charlie Rincon, PT [facility] [address] [place] [address] 09/19/2023 10:40 AM CDT Therapy Visit [facility] [address] [place] [phone] Charlie Rincon, PT [facility] [address] [place] [address] 09/23/2023 10:30 AM CDT Therapy Visit [facility] [address] [place] [phone] Charlie Rincon, PT [facility] [address] [place] [address]79 09/26/2023 10:40 AM CDT Therapy Visit [address] [address] Charlie Rincon, PT [facility] [address] [place] [address]84 10/16/2023 9:15 AM CDT Virtual Visit [facility] [address] [address] Corinne Moreno MD [address] [place] [address] documented as of this encounter Visit Diagnoses Not on filedocumented in this encounter Care Teams Linotype Operator Relationship Specialty Start Date End Date Clinic, [facility] [address] [place] [address] PCP - General 03/28/15 documented as of this encounter
--- OUTSIDE RECORDS SUMMARY | 2023-07-15 10:36 | XMS_ITS | Encounter Summary ---
Author Name Unknown Organization [place] Address [address] [place] [address]. [place] [address] Care Team Providers Care Cube Machine Tender Name Role Phone Clinic, [facility] Primary Care Provider Encounter Details Date Type Department Care Team (Late st Contact Info) Description 12/04/2021 MyC Medical Advice [facility] Surgical Weight Loss Clinic [address] [place] [phone] [facility] Social History Tobacco Use Types Packs/Day Years [...] Description 08/05/2023 10:30 AM CDT Therapy Visit [facility] Rehabilitation Services [place] [address] [place] [phone] Charlie Rincon, PT [facility] [address] [place], [place] [address] 08/08/2023 10:40 AM CDT Therapy Visit [facility] [address] [place] [phone] Charlie Rincon, PT [facility] [address] [place] [address] 08/12/2023 10:30 AM CDT Therapy Visit [address] 34390[address] Charlie Rincon, PT [facility] [address] [place] [address] 08/15/2023 10:40 AM CDT Therapy Visit [address] [address] [place] [address] [place] [address] 08/19/2023 10:30 AM CDT Therapy Visit [address] [phone] Charlie Rincon, PT [facility] [address] [place] [address] 11596 08/22/2023 10:40 AM CDT Therapy Visit [address] [address] Charlie Rincon, PT [facility] [address] [place] [address] 22668 08/26/2023 10:30 AM CDT Therapy Visit [address] 61425-[address] Charlie Rincon, PT [facility] [address] [place] [address] 08/28/2023 10:50 AM CDT Therapy Visit [facility] [address] [place] [phone] Charlie Rincon, PT [facility] [address] [place] [address]995 09/02/2023 10:50 AM CDT Therapy Visit [address] [address] [place] [address] [place] [address] 09/05/2023 10:40 AM CDT Therapy Visit [address] [address] [place] [address] [place] [address] 09/09/2023 10:10 AM CDT Therapy Visit [address] [address] [place] [address] [place] [address] 09/12/2023 10:40 AM CDT Therapy Visit [address] [address] Charlie Rincon, PT [facility] [address] [place] [address] 14586 09/16/2023 10:30 AM CDT Therapy Visit [address] [address] Charlie Rincon, PT [facility] [address] [place] [address] 97810 09/19/2023 10:40 AM CDT Therapy Visit [facility] [address] [place] [phone] Charlie Rincon, PT [facility] [address] [place] [address]14 09/23/2023 10:30 AM CDT Therapy Visit [facility] [address] [place] [phone] Charlie Rincon, PT [facility] [address] [place] [address] 9[address]88 09/26/2023 10:40 AM CDT Therapy Visit [address] [address] Charlie Rincon, PT [facility] [address] [place] [address] 10/16/2023 9:15 AM CDT Virtual Visit [facility] [address] [phone] Corinne Morneo MD [address] [place] [address] documented as of this encounter Visit Diagnoses Not on filedocumented in this encounter Care Teams Cube Machine Tender Relationship Specialty Start Date End Date Clinic, [facility] [address] [place] [address] PCP - General 03/28/15 documented as of this encounter
--- OUTSIDE RECORDS SUMMARY | 2023-07-15 10:36 | XMS_ITS | Encounter Summary ---
Author Name Unknown Organization [place] Address [address] [place] [address]. [place] [address] Care Team Providers Care Scrap Yard Worker Name Role Phone Clinic, [facility] [place] Primary Care Provider Encounter Details Date Type Department Care Team (Late st Contact Info) Description 12/06/2021 MyC Medical Advice [facility] Surgical Weight Loss Clinic [address] [place] [phone] Gi Timmons, [facility] [address] [place] [address] [address] [place] [address] Social History Tobacco Use Types Packs/Day Years [...] Description 08/05/2023 10:30 AM CDT Therapy Visit [facility] Rehabilitation Services [place] [address] [place] [phone] Charlie Rincon, PT [facility] [address] [place] [address] 08/08/2023 10:40 AM CDT Therapy Visit [facility] [address] [place] [address] Charlie Rincon, PT [facility] [address] [place] [address] 08/12/2023 10:30 AM CDT Therapy Visit [facility] [address] [place] [phone] Charlie Rincon, PT [facility] [address] [place] [address] 33768 08/15/2023 10:40 AM CDT Therapy Visit [address] [address] [place] [address] [address] 08/19/2023 10:30 AM CDT Therapy Visit [address] [phone] Charlie Rincon, PT [facility] [address] [place] [address]89 08/22/2023 10:40 AM CDT Therapy Visit [facility] [address] [place] [phone] Charlie Rincon, PT [facility] [address] [place] [address] 13490 08/26/2023 10:30 AM CDT Therapy Visit [address] 48[address] Charlie Rincon, PT [facility] [address] [place] [address] 08/28/2023 10:50 AM CDT Therapy Visit [facility] [address] [place] [address] Charlie Rincon, PT [facility] [address] [place] [address] 78091 09/02/2023 10:50 AM CDT Therapy Visit [address] [address] [place] [address] [place] [address] 09/05/2023 10:40 AM CDT Therapy Visit [facility] [address] [place] [address] [place] [address] [place] [address] 09/09/2023 10:10 AM CDT Therapy Visit [address] [address] [place] [address] [place] [address] 09/12/2023 10:40 AM CDT Therapy Visit [address] [address] Charlie Rincon, PT [facility] [address] [place] [address] 28557 09/16/2023 10:30 AM CDT Therapy Visit [address] [address] Charlie Rincon, PT [facility] [address] [place] [address] 09/19/2023 10:40 AM CDT Therapy Visit [facility] [address] [place] [address] Charlie Rincon, PT [facility] [address] [place] [address] 25194 09/23/2023 10:30 AM CDT Therapy Visit [address] [address] Charlie Rincon, PT [facility] [address] [place] [address] 09/26/2023 10:40 AM CDT Therapy Visit [facility] [address] [place] [address] Charlie Rincon, PT [facility] [address] [place] [address]177 10/16/2023 9:15 AM CDT Virtual Visit [facility] [address] [address] Corinne Moreno MD [address] [place] [address] documented as of this encounter Visit Diagnoses Not on filedocumented in this encounter Care Teams Scrap Yard Worker Relationship Specialty Start Date End Date [facility], [facility] ([place] [place] [address] [place] [address] PCP - General 03/28/15 documented as of this encounter
--- OUTSIDE RECORDS SUMMARY | 2023-07-15 10:36 | XMS_ITS | Encounter Summary ---
Author Name Unknown Organization [facility] Address [address] [place] [address] Care Team Providers Care Disability Hearing Officer Name Role Phone Soren Jones MD Primary Care Provider [phone] [facility] Primary Care Provider Marlene Chopra APRN BOX TURNER Unavailable + Marlene Chopra APRN BOX TURNER Unavailable + Geno Singh MD Unavailable +[phone] Geno Singh MD Unavailable [phone] Marlene Chopra APRN BOX TURNER Unavailable + Geno Singh MD Unavailable [phone] Marlene Chopra APRN BOX TURNER Unavailable + Marlene Chopra APRN BOX TURNER Unavailable + Geno Singh MD Unavailable [phone] Encounter Details Date Type Department Care Team (Late st Contact Info) Description 05/02/2011 [facility] [address] [place] [address] [facility] Social History Tobacco Use Types Packs/Day Years Used Date Smoking Tobacco: Former Smokeless Tobacco: Never Comments:Quit 1983 Alcohol Use [...] 08/05/2023 10:30 AM CDT Therapy Visit [facility] [id number] [place] [phone] Charlie Rincon, PT [facility] [address] [place] [address] 08/08/2023 10:40 AM CDT Therapy Visit [address] [address] Charlie Rincon, PT [facility] [address] [place] [address] 08/12/2023 10:30 AM CDT Therapy Visit [address] [address] Charlie Rincon, PT [facility] [id number] [place] [address] 08/15/2023 10:40 AM CDT Therapy Visit [address] [phone] [place] [address] [address] 08/19/2023 10:30 AM CDT Therapy Visit [facility] [id number] [place] [phone] Charlie Rincon, PT [facility] [address] [place] [address] 08/22/2023 10:40 AM CDT Therapy Visit [address] [address] Charlie Rincon, PT [facility] [address] [place] [address] 08/26/2023 10:30 AM CDT Therapy Visit [address] [address] Charlie Rincon, PT [facility] [address] [place] [address] 08/28/2023 10:50 AM CDT Therapy Visit [address] [address] Charlie Rincon, PT [facility] [id number] [place] [address] 09/02/2023 10:50 AM CDT Therapy Visit [address] [address] [place] [address] [place] [address] 09/05/2023 10:40 AM CDT Therapy Visit [address] [address] [place] [address] [place] [address] 09/09/2023 10:10 AM CDT Therapy Visit [address] [address] [place] [address] [place] [address] 09/12/2023 10:40 AM CDT Therapy Visit [facility] [address] [place] [address] Charlie Rincon, PT [facility] [address] [place] [address] 09/16/2023 10:30 AM CDT Therapy Visit [facility] [address] [place] [phone] Charlie Rincon, PT [facility] [address] [place] [address] 09/19/2023 10:40 AM CDT Therapy Visit [facility] [address] [place] [phone] Charlie Rincon, PT [facility] [address] [place] [address] 09/23/2023 10:30 AM CDT Therapy Visit [facility] [address] [place] [address] Charlie Rincon, PT [facility] [address] [place] [address] 09/26/2023 10:40 AM CDT Therapy Visit [facility] [address] [place] [phone] Charlie Rincon, PT [facility] [address] [place] [address] 10/16/2023 9:15 AM CDT Virtual Visit [facility] [address] [address] Corinne Moreno MD [address] [place] [address] documented as of this encounter Visit Diagnoses Not on filedocumented in this encounter Care Teams Disability Hearing Officer Relationship Specialty Start Date End Date Soren Jones MD PCP - General Family Practice 09/07/10 03/27/[address] [address] PCP - General 03/28/15 Marlene Chopra APRN BOX TURNER [address] [place] [address] PCP - Assigned PCP 11/17/17 01/18/18 Marlene Chopra APRN BOX TURNER [address] [place] [address] PCP - Assigned PCP 02/02/18 02/15/18 Geno Singh MD [address] [place] [address] PCP - Assigned PCP 01/19/18 02/01/18 Geno Singh MD [address] [place] [address]704 PCP - Assigned PCP 02/16/18 03/15/18 Marlene Chopra APRN BOX TURNER [address] [place] [address] PCP - Assigned PCP 03/16/18 04/05/18 Geno Singh MD [address] [place] [address] 19752 PCP - Assigned PCP 04/06/18 04/12/18 Marlene Chopra APRN BOX TURNER [address] [place] [address] Assigned PCP 04/13/18 04/26/18 Marlene Chopra APRN BOX TURNER [address] [place] [address] Assigned PCP 03/16/18 04/05/18 Geno Singh MD [address] [place] [address] Assigned PCP 04/06/18 04/12/18 documented as of this encounter
--- OUTSIDE RECORDS SUMMARY | 2023-07-15 10:36 | XMS_ITS | Encounter Summary ---
Author Name Unknown Organization [place] Address [address] [place] [address]. [place] [address] Care Team Providers Care Dehydration Plant Operator Name Role Phone Clinic, [facility] Primary Care Provider Encounter Details Date Type Department Care Team (Late st Contact Info) Description 11/14/2021 MyC Medical Advice [facility] [address] [place] [phone] Gi Timmons, [facility] [address] [place] [address] [address] [place], [place] [address] Social History Tobacco Use Types Packs/Day Years [...] 08/05/2023 10:30 AM CDT Therapy Visit [facility] [place] [phone] [place] [address] Charlie Rincon, PT [facility] [address] [place] [address] 08/08/2023 10:40 AM CDT Therapy Visit [facility] [address] [place] [address] Charlie Rincon, PT [facility] [address] [place] [address] 08/12/2023 10:30 AM CDT Therapy Visit [facility] [address] [place] [phone] Charlie Rincon, PT [facility] [address] [place] [address] 08/15/2023 10:40 AM CDT Therapy Visit [address] [address] [place] [address] [facility] [address] [address] 08/19/2023 10:30 AM CDT Therapy Visit [address] [address] Charlie Rincon, PT [facility] [address] [place] [address] 08/22/2023 10:40 AM CDT Therapy Visit [facility] [address] [place] [phone] Charlie Rincon, PT [facility] [address] [place] [address] 08/26/2023 10:30 AM CDT Therapy Visit [address] [phone] Charlie Rincon, PT [facility] [address] [place] [address] 08/28/2023 10:50 AM CDT Therapy Visit [facility] [address] [place] [address] Charlie Rincon, PT [facility] [address] [place] [address] 09/02/2023 10:50 AM CDT Therapy Visit [address] [address] [place] [address] [place] [address] 09/05/2023 10:40 AM CDT Therapy Visit [facility] [address] [place] [address] [place] [address] [place] [address] 09/09/2023 10:10 AM CDT Therapy Visit [address] [address] [place] [address] [place] [address] 09/12/2023 10:40 AM CDT Therapy Visit [address] [address] Charlie Rincon, PT [facility] [address] [place] [address] 09/16/2023 10:30 AM CDT Therapy Visit [address] [address] Charlie Rincon, PT [facility] [address] [place] [address] 09/19/2023 10:40 AM CDT Therapy Visit [facility] [address] [place] [phone] Charlie Rincon, PT [facility] [address] [place] [address] 09/23/2023 10:30 AM CDT Therapy Visit [address] [address] Charlie Rincon, PT [facility] [address] [place] [address] 09/26/2023 10:40 AM CDT Therapy Visit [facility] [address] [place] [address] Charlie Rincon, PT [facility] [address] [place] [address] 10/16/2023 9:15 AM CDT Virtual Visit [facility] [address] [phone] Corinne Moreno MD [address] [place] [address] documented as of this encounter Visit Diagnoses Not on filedocumented in this encounter Care Teams Dehydration Plant Operator Relationship Specialty Start Date End Date [facility] [address] [place] [address] PCP - General 03/28/15 documented as of this encounter
--- OUTSIDE RECORDS SUMMARY | 2023-07-15 10:36 | XMS_ITS | Encounter Summary ---
Author Name Unknown Organization [facility] Address [address] [place] [address] Care Team Providers Care Field Service Tech Name Role Phone None Primary Care Provider Unavailabl e Soren Jones MD Primary Care Provider [phone] [facility] Primary Care Provider Marlene Chopra APRN SCIENTIFIC PROGRAMMER ANALYST Unavailable + Marlene Chopra APRN SCIENTIFIC PROGRAMMER ANALYST Unavailable + Geno Singh MD Unavailable +[phone] Geno Singh MD Unavailable +[phone] Marlene Chopra APRN SCIENTIFIC PROGRAMMER ANALYST Unavailable + Geno Singh MD Unavailable +[phone] Marlene Chopra APRN SCIENTIFIC PROGRAMMER ANALYST Unavailable + Marlene Chopra APRN SCIENTIFIC PROGRAMMER ANALYST Unavailable + Geno Singh MD Unavailable +[phone] Encounter Details Date Type Department Care Team (Late st Contact Info) Description 07/02/2005 Abstract [facility] Surgery Logan Peterson MD [address] [place] [address] Social History Tobacco Use Types Packs/Day Years Used Date Smoking Tobacco: Former Comments:Quit 1983 Alcohol Use Standard Drinks/Week Comments Not Asked 0 (1 standard drink = 0.6 oz [...] Description 08/05/2023 10:30 AM CDT Therapy Visit [facility] [address] [place] [phone] Charlie Rincon, PT [facility] [address] [place] [address] 08/08/2023 10:40 AM CDT Therapy Visit [address] [address] Charlie Rincon, PT [facility] [address] [place] [address] 08/12/2023 10:30 AM CDT Therapy Visit [address] [address] Charlie Rincon, PT [facility] [address] [place] [address] 08/15/2023 10:40 AM CDT Therapy Visit [address] [address] [place] [address] [address] 08/19/2023 10:30 AM CDT Therapy Visit [facility] [address] [place] [phone] Charlie Rincon, PT [facility] [address] [place] [address] 08/22/2023 10:40 AM CDT Therapy Visit [address] [address] Charlie Rincon, PT [facility] [address] [place] [address] 08/26/2023 10:30 AM CDT Therapy Visit [address] [address] Charlie Rincon, PT [facility] [address] [place] [address] 08/28/2023 10:50 AM CDT Therapy Visit [address] [address] Charlie Rincon, PT [facility] [address] [place] [address] 09/02/2023 10:50 AM CDT Therapy Visit [address] [address] [place] [address] [place] [address] 09/05/2023 10:40 AM CDT Therapy Visit [address] [address] [place] [address] [place] [address] 09/09/2023 10:10 AM CDT Therapy Visit [address] [address] [place] [address] [place] [address] 09/12/2023 10:40 AM CDT Therapy Visit [facility] [address] [place] [address] Charlie Rincon, PT [facility] [address] [place] [address] 09/16/2023 10:30 AM CDT Therapy Visit [facility] [address] [place] [address] Charlie Rincon, PT [facility] [address] [place] [address] 09/19/2023 10:40 AM CDT Therapy Visit [facility] [address] [place] [address] Charlie Rincon, PT [facility] [address] [place] [address] 09/23/2023 10:30 AM CDT Therapy Visit [facility] [address] [place] [address] Charlie Rincon, PT [facility] [address] [place] [address] 09/26/2023 10:40 AM CDT Therapy Visit [facility] [address] [place] [address] Charlie Rincon, PT [facility] [address] [place] [address] 10/16/2023 9:15 AM CDT Virtual Visit [facility] Surgery [facility] [address] [address] Corinne Moreno MD [address] [place] [address] documented as of this encounter Visit Diagnoses Not on filedocumented in this encounter Care Teams Field Service Tech Relationship Specialty Start Date End Date None PCP - General 12/23/99 09/06/10 Soren Jones MD PCP - General Family Practice 09/07/10 03/27/[address] [address] PCP - General 03/28/15 Marlene Chopra APRN SCIENTIFIC PROGRAMMER ANALYST [address] [place] [address] PCP - Assigned PCP 11/17/17 01/18/18 Marlene Chopra APRN SCIENTIFIC PROGRAMMER ANALYST [address] [place] [address] 28627 PCP - Assigned PCP 02/02/18 02/15/18 Geno Singh MD [address] [place] [address] PCP - Assigned PCP 01/19/18 02/01/18 Geno Singh MD [address] [place] [address]271 PCP - Assigned PCP 02/16/18 03/15/18 Marlene Chopra APRN SCIENTIFIC PROGRAMMER ANALYST [address] [place] [address] PCP - Assigned PCP 03/16/18 04/05/18 Geno Singh MD [address] [place] [address] PCP - Assigned PCP 04/06/18 04/12/18 Marlene Chopra APRN SCIENTIFIC PROGRAMMER ANALYST [address] [place] [address] Assigned PCP 04/13/18 04/26/18 Marlene Chopra APRN SCIENTIFIC PROGRAMMER ANALYST [address] [place] [address] 260[address] Assigned PCP 03/16/18 04/05/18 Geno Singh MD [address] [place] [address]990 Assigned PCP 04/06/18 04/12/18 documented as of this encounter
--- OUTSIDE RECORDS SUMMARY | 2023-07-15 10:36 | XMS_ITS | Clinical Summary ---
Author Name Unknown Organization [facility] Address [place], [place] [address] Care Team Providers Care Loan Expeditor Name Role Phone Ganesh Davis MD Primary Care Provider Allergies Active Allergy Reactions Criticality Noted Date Comments Sulfa (Sulfonamide Antibiotics) Rash 05/28 Medications Medication Sig Dispensed Refills Start Date End Date Status fexofenadine-pseu doephedrine, 60-120 MG, (ANALI-D) 60-120 mg per tabletIndications :Hyperlipidemia Take 1 tablet by mouth 2 times daily. 180 tablet 3 06/21/2009 Active hydrocortisone (ANUSOL-HC) 2.5 % rectal cream Apply topically to affected area(s) 3 times daily. 3 Tube 3 06/21/2009 Active multivitamin (MVI) tablet Take 1 tablet by mouth once daily. 0 09/17/2011 Active ascorbic acid (VITAMIN C) 500 mg tablet Take 1 tablet by mouth once daily. 0 09/17/2011 Active vitamin e 400 unit capsule Take 2 capsules by mouth once daily. 0 09/17/2011 Active Calcium-Cholecalc iferol, D3, (CALCIUM 600 WITH VITAMIN D3) 600 mg(1,500mg) -400 unit cap Take 2 Tabs by mouth once daily. 0 09/17/2011 Active albuterol HFA (PROAIR HFA) 90 mcg/actuation inhaler Inhale 1 Puff by mouth every 4 hours if needed. 3 Inhaler 3 09/17/2011 Active fluticasone (FLOVENT HFA) 44 mcg/Actuation inhalerIndication s:Menopause Inhale 2 Puffs by mouth 2 times daily. 3 Inhaler 3 09/17/2011 Active fluticasone, 50 mcg per actuation, nasal (FLONASE) 50 mcg/actuation nasal sprayIndications: Allergic rhinitis, cause unspecified Inhale 1 [place] into both nostrils once daily. 3 Bottle 3 09/17/2011 Active omeprazole (PRILOSEC) 20 mg capsuleIndication s:Allergic rhinitis, cause unspecified Take 1 capsule by mouth 2 times daily before meals. 180 capsule 3 09/17/2011 Active medication order composer Apply 1 unit topically to affected area(s) once daily if needed for Other (Specify). 0 04/21/2012 Active traZODone (DESYREL) 50 mg tabletIndications :Insomnia, unspecified Take 1 tablet by mouth at bedtime. 90 tablet 3 05/02/2012 Active Fluocinolone-Show er Cap (DERMA-SMOOTHE/FS SCALP OIL) 0.01 % OilIndications:Se borrheic dermatitis, unspecified Apply topically to affected area(s) at bedtime. 1 Bottle 11 05/02/2012 Active medication order composer Take 1 Cap by mouth 2 times daily. WAL-PHED 12 HOUR CAPLETS 20'S 60 Cap 2 06/11/2012 Active fluticasone-salme terol (ADVAIR DISKUS) 250-50 mcg/Dose diskus inhalerIndication s:Mild recurrent major depression (HC) Inhale 1 Puff by mouth every 12 hours. 3 Inhaler 3 07/14/2012 Active THERA BAND As directed. 1 Device 1 07/14/2012 Active THERA BAND As directed. 1 Units 0 07/14/2012 Active levothyroxine (SYNTHROID) 100 mcg tabletIndications :Mild persistent asthma TAKE 1 TABLET BY MOUTH ONCE DAILY . BEST IF TAKEN ON EMPTY STOMACH 90 tablet 2 09/17/2012 Active atorvastatin (LIPITOR) 40 mg tablet TAKE 1 TABLET BY MOUTH ONCE DAILY 90 tablet 1 09/25/2012 Active ketoconazole 2% shampoo (NIZORAL) 2 % shampoo APPLY TOPICALLY DAILY NEEDED FOR ITCHING 120 mL 0 09/25/2012 Active celecoxib (CELEBREX) 200 mg capsule Take 1 capsule by mouth 2 times daily with meals. 180 capsule 0 12/03/2012 Active WAL-PHED 12 HOUR 120 mg TbER TAKE 1 TABLET BY MOUTH TWICE DAILY 60 tablet 1 12/12/2012 Active esterified estrogens-methylT ESTOSTERone, 0.625-1.25 mg, (ESTRATEST H.S.) tabletIndications :Mild persistent asthma TAKE 1 TABLET BY MOUTH EVERY DAY . 90 tablet 1 01/12/2013 Active FLUoxetine (PROZAC) 40 mg capsuleIndication s:Joint pain Take 2 capsules by mouth every morning. 60 capsule 0 01/13/2013 Active baclofen (LIORESAL) 5 mg tab tablet Three Times A Day as needed 03/18/2020 Active benzonatate (TESSALON) 100 mg capsule Three Times A Day as needed 06/06/2018 Active citalopram (CELEXA) 20 mg tablet 05/24/2020 Active clobetasol 0.05% (TEMOVATE 0.05% OINTMENT) 0.05 % ointment Bedtime 03/30/2020 Active cyclobenzaprine (FLEXERIL) 5 mg tablet Three Times A Day as needed for Pain 09/05/2018 Active dicyclomine (BENTYL) 10 mg capsule Four Times Daily 11/12/2018 Active dupilumab (DUPIXENT) 300 mg/2 mL syrg subcutaneous syringe .as Direc 01/26/2020 Active estradioL (ESTRACE) 0.1 mg/g vaginal cream Twice Weekly 04/09/2019 Active Fluocinolone Acetonide 0.01 % oil No Twice A Day as needed 02/23/2020 Active fluocinonide 0.05 TOPICAL (LIDEX) 0.05 % external solution Twice A Day 01/26/2020 Active fluticasone furoate-vilantero L (BREO ELLIPTA) 200mcg/25mcg inhaler Twice A Day 01/13/2020 Active halobetasol 0.05% topical (ULTRAVATE) 0.05 % ointment Twice Weekly 04/23/2019 Active hydroCHLOROthiazi de 12.5 mg tablet Daily 03/04/2020 Active hydrocortisone (ANUSOL-HC SUPPOSITORY) 25 mg suppository Daily 06/06/2018 Active hydrOXYzine pamoate (VISTARIL) 25 mg capsule 05/24/2020 Active lidocaine 5 % oint topical ointment 05/13/2020 Active losartan (COZAAR) 50 mg tablet Daily 05/01/2020 Active montelukast (SINGULAIR) 10 mg tablet Bedtime 01/27/2020 Active nystatin (MYCOSTATIN) cream Daily 06/06/2018 Active pantoprazole (PROTONIX) 40 mg delayed-release tablet Take 40 mg by mouth. Active predniSONE (DELTASONE) 20 mg tablet Twice A Day 03/30/2020 Active tretinoin (RETIN-A) 0.025 % 0.025 % cream Bedtime 04/28/2019 Active triamcinolone 0.1% TOPICAL (KENALOG) 0.1 % lotion Twice A Day 04/20/2020 Active vitamin E acid succinate (vitamin E succinate) 400 unit tab Take 400 units by mouth. Active gabapentin (NEURONTIN) 300 mg capsuleIndication s:Lumbar facet arthropathy Take 1 capsule by mouth at bedtime 30 Capsule 06/16/2023 Active gabapentin (NEURONTIN) 300 mg capsuleIndication s:Lumbar facet arthropathy Take 1 capsule by mouth at bedtime 30 Capsule 05/22/2023 4 Discontinued Active Problems Problem Noted Date Diagnosed Date Seborrheic dermatitis, unspecified 05/02/2012 Alcohol abuse, tx 1977 05/02/2012 Annual physical exam 06/15/2009 Overview: 06/15/2009 ADVANCED DIRECTIVE REVIEWED AND SCANNED TO CHART she has distant history of chemical dependency she has very high tolerance to pain meds if needed, she prefers very controlled use and prescription of the medications Hyperlipidemia 06/15/2009 Mild persistent asthma 06/15/2009 Hypothyroid 06/15/2009 GERD (gastroesophageal reflux disease) 0 Allergic rhinitis, cause unspecified 06/15/2009 depression 06/15/2009 Menopause 06/15/2009 Encounters Date Type Department Care Team Description 06/15/2023 Refill [facility] [address] [place] [address] Raymond Hood MD Refill Request (Gabapentin) 06/03/2023 Telephone [facility] [address] [place], [place] [id number] Ganesh Davis MD Questions 05/21/2023 Refill [facility] [address] [place] [address] Raymond Hood MD Refill Request (Gabapentin) from Last 3 Months Immunizations Name Administration Dates Next Due COVID-19 vaccine ([employer] NTOnBeep 30mcg/0.3mL) EFRAIN FISH 06/07/2020 Hepatitis A (Adult) 02/26/1996,07/27/1995 Hepatitis B (Adult) 02/26/1996,08/26/1995,1995 Influenza A (H1N1), Inactiva yao (Age >=3 Years) 03/25/2009 Influenza, IIV3 (Age >=3 years) 12/21/2008 Pneumococcal Poly,23-Valent (Pneumovax) 02/25/18 97 Tdap 06/15/2009 Family History Medical History Relation Name Comments Hyperlipidemia Daughter Alcohol/Drug Father alcoholic Cancer Father pancreatic canc er Psychiatric illness Father depressi on Diabetes Maternal Aunt Diabetes Maternal Grandfather Stroke Maternal Grandfather Hyperlipidemia Mother Hypertension Mother Psychiatric illness Mother depressi on/anxiety,dementia, poss alzeihmers Stroke Mother TIA - affecting memory Thyroid Disease Sister Hyperlipidemia Son Relation Name Status Comments Daughter Father Maternal Aunt Maternal Grandfather Mother Sister Son Social History Tobacco Use Types Packs/Day Years Used Date Smoking Tobacco: Former Cigarettes Q uit: 02/25/1983 Smokeless Tobacco: Never Tobacco Cessation:Counseling Given: Yes Alcohol Use Standard Drinks/Week Comments No 0 (1 standard drink = 0.6 oz pur e alcohol) Social Connections Answer Date Recorded Frequency of Communication with Friends and Fami ly Not on file 01/14/2023 Financial Resource Strain Answer Date R ecorded Difficulty of Paying Living Expenses Not on file 02/25/2021 Difficulty of Paying Living Expenses Not on file 02/25/2021 Sex and Gender Information Value Date Recorded Sex Assigned at Not on file Gender Identity Not on file Sexual Orientation Not on file Obstetrics History Last Filed Vital Signs Vital Sign Reading Time Taken Comments Blood Pressure 152/88 01/14/2023 1:50 PM PRESSING DEPARTMENT SUPERVISOR Pulse 83 01/14/2023 1:50 PM PRESSING DEPARTMENT SUPERVISOR Temperature 36.9 ??C (98.4 ??F) 01/14/2023 1:50 PM CS T Respiratory Rate - - Oxygen Saturation 97% 01/14/2023 1:50 PM PRESSING DEPARTMENT SUPERVISOR Inhaled Oxygen Concentration - - Weight 85.8 kg (189 lb 3.2 oz) 11/02/2020 3:50 P M CDT shoes on Height 158.8 cm (5' 2.5) 07/14/2012 9:16 AM CDT Body Mass Index 34.05 07/14/2012 9:16 AM CDT Plan of Treatment Upcoming Encounters Date Type Department Care Team (Latest Contact Info) Description 07/31/2023 7:50 AM CDT Hospital Encounter [address] [address] Davi Melton MD [address] [address] 07/31/2023 9:50 AM CDT - 07/31/2023 12:23 PM CDT Surgery [address] [address] Davi Melton MD [address] [address] LEFT TOTAL KNEE ARTHROPLASTY Scheduled Procedures Name Priority Associated Diagnoses Date/Ti me ARTHROPLASTY KNEE OSTEOARTHRITIS LEFT KNEE 07/31/2023 9:50 AM CDT Health Maintenance Due Date Last Done Comments Depression screening for age 12+ 1960 BMI (ht and wt on same day) for age 18+ 1966 Hepatitis C screening for ag e 18-79 1966 Pneumococcal series for age 65+ (2 of 2 - PCV) 02/25/1997 02/26/1996 Zoster (shingles) series for age 50+ (1 of 2) 1998 DEXA/DXA scan for age 65+ 2013 Medicare Wellness for age 65+ 2013 Lipids for age 45-75 07/07/2017 07/07/2012, 03/13/2012, 09/17/2011, Additional history exists Tetanus booster 06/16/2019 06/15/2009 (Decl ined), 06/15/2009 Fecal testing non-DNA (FIT,FOBT,iFOBT) for age 45-75 11/16/2021 11/16/2020 Influenza for age 65+ 10/27/2023 03/25/2009, 009 Tdap Completed 06/15/2009 COVID-19 vaccine series Completed 11/23/19 23, 01/04/2022, 07/11/2021, Additional history exists Procedures Procedure Name Priority Date/Time Associated Diagnosis Comments OCCULT BLOOD IFOBT STOOL Routine 11/16/2020 7:14 AM CDT Screening for colorectal cancer LIPID PANEL W REFLEX MEASURED LDL Routine 07/07/2012 10:42 AM CDT Hyperlipidemia from Last 3 Months or Most Recently Relevant to Health Maintenance Results * OCCULT BLOOD IFOBT STOOL (11/16/2020 7:14 AM CDT) STOOL BLOOD ,IFOBT Negative Negative 11/25/2020 4:08 PM CDT [facility] Stool STOOL SPECIMEN / Unknown Non-Blood / Unknown 11/16/2020 7:14 AM CDT 11/25/2020 7:15 AM CDT Nael Bang MD LABORATORY [facility] [address] [place] [address], * LIPID PANEL W REFLEX MEASURED LDL (07/07/2012 10:42 AM CDT) CHOLESTEROL,TOTA L 144 100 - 199 mg/dL [facility] TRIGLYCERIDES 65 <150 mg/dL [facility] HDL CHOLESTEROL 43 >40 mg/dL [facility] CHOL/HDL RATIO 3.35 <4.50 [facility] NON-HDL CHOLESTEROL 101 Undefined mg/dL [facility] LDL CHOLESTEROL 88 <131 mg/dL [facility] PATIENT STATUS Fasting [facility] Blood specimen (specimen) BLOOD SPECIMEN / Unknown 07/07/2012 10:42 AM CDT 07/07/2012 10:33 AM CDT Nael Bang MD CHEMISTRY [facility] INTERNAL ZIP [address] [place] [address] from Last 3 Months or Most Recently Relevant to Health Maintenance Advance Directives Documents on File Type Date Recorded Patient Director Of Materials Expl anation Healthcare Directive 06/16/2009 HEALTH CARE LIVING WILL Care Teams Loan Expeditor Relationship Specialty Start Date End Date Ganesh Davis MD [address] [place] [address] PCP - General Internal Medicine 01/14/23
--- OUTSIDE RECORDS SUMMARY | 2023-07-15 10:36 | XMS_ITS | Encounter Summary ---
Author Name Unknown Organization [place] Address [address] [place] [address]. [place] [address] Care Team Providers Care Theatrical Agent Name Role Phone Soren Jones MD Primary Care Provider [facility] Primary Care Provider Marlene Chopra APRN BEND UP Unavailable + Marlene Chopra APRN BEND UP Unavailable + Geno Singh MD Unavailable [phone] Geno Singh MD Unavailable [phone] Marlene Chopra APRN BEND UP Unavailable + Geno Singh MD Unavailable [phone] Marlene Chopra APRN BEND UP Unavailable + Marlene Chopra APRN BEND UP Unavailable + eGno Singh MD Unavailable [phone] Encounter Details Date Type Department Care Team (Late st Contact Info) Description 09/29/2012 [facility] [address] [address] [facility] Social History Tobacco Use Types Packs/Day [...] Description 08/05/2023 10:30 AM CDT Therapy Visit [facility] [id number] [place] [phone] Charlie Rincon, PT [facility] [id number] [place] [address] 08/08/2023 10:40 AM CDT Therapy Visit [address] [phone] Charlie Rincon, PT [facility] [id number] [place] [address] 08/12/2023 10:30 AM CDT Therapy Visit [address] [phone] Charlie Rincon, PT [facility] [id number] [place] [address] 08/15/2023 10:40 AM CDT Therapy Visit [address] [phone] [place] [address] [place] [address] 08/19/2023 10:30 AM CDT Therapy Visit [facility] [address] [place] [phone] Charlie Rincon, PT [facility] [address] [place] [address] 08/22/2023 10:40 AM CDT Therapy Visit [facility] [address] [place] [phone] Charlie Rincon, PT [facility] [address] [place] [address] 08/26/2023 10:30 AM CDT Therapy Visit [address] [phone] Charlie Rincon, PT [facility] [phone] [place] [address] 08/28/2023 10:50 AM CDT Therapy Visit [address] [phone] Charlie Rincon, PT [facility] [id number] [place] [address] 09/02/2023 10:50 AM CDT Therapy Visit [address] [phone] [place] [address] [place] [address] 09/05/2023 10:40 AM CDT Therapy Visit [address] [phone] [place] [address] [place] [address] 09/09/2023 10:10 AM CDT Therapy Visit [address] [phone] [place] [address] [place] [place] [address] 09/12/2023 10:40 AM CDT Therapy Visit [facility] [address] [place] [phone] Charlie Rincon, PT [facility] [id number] [place] [address] 09/16/2023 10:30 AM CDT Therapy Visit [facility] [address] [place] [phone] Charlie Rincon, PT [facility] [id number] [place] [address] 09/19/2023 10:40 AM CDT Therapy Visit [address] [address] Charlie Rincon, PT [facility] [id number] [place] [address] 09/23/2023 10:30 AM CDT Therapy Visit [facility] [address] [place] [phone] Charlie Rincon, PT [facility] [id number] [place] [address] 09/26/2023 10:40 AM CDT Therapy Visit [facility] [address] [place] [phone] Charlie Rincon, PT [facility] [phone] [place] [address] 10/16/2023 9:15 AM CDT Virtual Visit [facility] [address] [address] Corinne Moreno MD [address] [place] [address] documented as of this encounter Visit Diagnoses Not on filedocumented in this encounter Care Teams Theatrical Agent Relationship Specialty Start Date End Date Soren Jones MD PCP - General Family Practice 09/07/10 03/27/[address] [address] PCP - General 03/28/15 Marlene Chopra APRN BEND UP [address] [place] [address] PCP - Assigned PCP 11/17/17 01/18/18 Marlene Chopra APRN BEND UP [address] [place] [address] PCP - Assigned PCP 02/02/18 02/15/18 Geno Singh MD [address] [place] [address] PCP - Assigned PCP 01/19/18 02/01/18 Geno Singh MD [address] [place] [address] PCP - Assigned PCP 02/16/18 03/15/18 Marlene Chopra APRN BEND UP [address] [place] [phone] PCP - Assigned PCP 03/16/18 04/05/18 Geno Singh MD [address] [place] [address] PCP - Assigned PCP 04/06/18 04/12/18 Marlene Chopra APRN BEND UP [address] [place] [address] Assigned PCP 04/13/18 04/26/18 Marlene Chopra APRN BEND UP [address] [place] [address] Assigned PCP 03/16/18 04/05/18 Geno Singh MD [address] [place] [address] Assigned PCP 04/06/18 04/12/18 documented as of this encounter
== END 2023-07-15 10:32 | disposition home or self-care (01) ==
PROVIDERS: PCP Internal Medicine; Visit Provider Internal Medicine
DX: E03.9 Hypothyroidism, unspecified (principal); E78.5 Hyperlipidemia, unspecified; I10 Essential (primary) hypertension
CPT/HCPCS: 80053; 80061; 84443

== ENCOUNTER 2023-09-12 15:06 | Outpatient (CLI) | payer MEDICARE, OTHER, SELFPAY ==
--- OUTSIDE RECORDS SUMMARY | 2023-09-12 15:11 | XMS_ITS | Continuity of Care Document ---
Author Organization [facility] Address [address] [place] [address] Phone Care Team Providers Care Teacher Name Role Phone Leodan Montgomery MD Unavailable Unavailable Procedures Procedure Date No Show Visit Fee Advance Directives Directive Yes / No Effective Date File Name No Information Encounters Encounter Description Practice Location Reason(s) For Visit Diagnoses Date Provider Providers Copied on Encounter [facility], [address], [place], [place], [id number], [place] tel:[phone] [facility] No Information Valentina Alcocer. [address], [place], [id number], [place]. tel:[phone] Referring Provider: REFERRAL NAN LLAMAS. Family History Family Member Type Diagnosis Age At Onset No Information Payers Payer name Insurance type Covered green party ID Authoriza tion(s) No Information Social History [...]
== END 2023-09-12 15:07 | disposition home or self-care (01) ==
LOC: NFLDREF 15:07
PROVIDERS: PCP Internal Medicine; Visit Provider Internal Medicine
DX: R53.83 Other fatigue (principal); Z13.228 Encounter for screening for other metabolic disorders
CPT/HCPCS: 80048

== ENCOUNTER 2024-03-17 09:37 | Outpatient (CLI) | payer MEDICARE, OTHER, SELFPAY | END 2024-03-17 09:38 | disposition home or self-care (01) | LOC: NFLDREF 03-18 00:51 | PROVIDERS: PCP Internal Medicine; Referring Provider Internal Medicine; Visit Provider Internal Medicine | DX: E78.5 Hyperlipidemia, unspecified (principal); I10 Essential (primary) hypertension | CPT/HCPCS: 80053; 80061 ==

== ENCOUNTER 2024-08-06 14:27 | Outpatient (CLI) | payer MEDICARE, OTHER, SELFPAY | END 2024-08-06 14:28 | disposition home or self-care (01) | LOC: NFLDREF 14:28 | PROVIDERS: PCP Internal Medicine; Visit Provider Internal Medicine | DX: R53.83 Other fatigue (principal) | CPT/HCPCS: 80048 ==